=== PATIENT | male | born 1940 | race Caucasian/White ===

== ENCOUNTER → 2016-07-03 | Outpatient (CLI) | payer BC, OTHER ==
[~2016-07-03] MED LIST: ALL100 PO; AMLO-110 PO; ASPI81TA28 PO; ATEN-175 PO; FLM4 PO; LISI-725 PO; MAGN1TAB19 PO; PRLSR20 PO; PSYL0.524; SIMV20TA2 PO; VLTG EXT
--- NOTE | 2016-07-03 15:40 | DIAGNOSTIC IMAGING REPORT ---
ABDOMEN 2VIEW W/PA CHEST RTN CLINICAL HISTORY: Abdominal pain. Constipation. COMPARISON STUDY: 04/11/2016 FINDINGS: The erect chest reveals mild hyperinflation. There is no focal pulmonary consolidation. There is no free air.] Supine views the abdomen reveal surgical clips within the right upper quadrant consistent with a prior cholecystectomy. There are no abnormally dilated loops of large or small bowel. There are no transition zones to indicate bowel obstruction. There are degenerative changes present within the hips left greater than right as well as within the lumbar spine. IMPRESSION: No evidence of bowel obstruction. No evidence of free air. Electronically signed by: Gera Hebert M.D. 07/03/2016 3:39 PM
== END | disposition home or self-care (01) ==
LOC: C.RADPV 15:19
PROVIDERS: ATTEND Family Medicine
DX: R10.9 Unspecified abdominal pain (principal); K59.00 Constipation, unspecified

== ENCOUNTER → 2016-07-06 | Outpatient (CLI) | payer BC, OTHER ==
[~2016-07-06] MED LIST changes: -PSYL0.524; -VLTG EXT
--- NOTE | 2016-07-06 10:13 | DIAGNOSTIC IMAGING REPORT ---
LEFT SHOULDER MIN 2 VIEWS ROUTINE CLINICAL HISTORY: Left shoulder pain. COMPARISON: None. DISCUSSION: There are mild to moderate osteoarthritic changes present. Degenerative changes are also present within the AC joint. There are no fractures. There are no erosive changes. There are no particular calcifications. IMPRESSION: Osteoarthritic changes with humeral and glenoid spurring. No acute fractures. Electronically signed by: Gera Hebert M.D. 07/06/2016 10:11 AM Dictated Date/Time: 07/06/2016 10:10 AM
== END | disposition home or self-care (01) ==
LOC: C.RADPV 09:56
PROVIDERS: ATTEND Family Medicine
DX: S46.912A Strain of unspecified muscle, fascia and tendon at shoulder and upper arm level, left arm, initial encounter (principal); X58.XXXA Exposure to other specified factors, initial encounter

== ENCOUNTER → 2016-08-08 | Outpatient (CLI) | payer BC, OTHER ==
[2016-08-08 13:25] LABS: ALT/SGPT 44 U/L (12-78); AST/SGOT 29 U/L (15-37); BLOOD UREA NITROGEN 12 mg/dl (7-18); BUN/CREATININE RATIO 10.9 (10-20); CALCIUM 8.6 mg/dl (8.5-10.1); CARBON DIOXIDE 24 mmol/L (21-32); CHLORIDE 107 mmol/L (98-107); GLUCOSE 95 mg/dl (70-99); MAGNESIUM 1.8 mg/dl (1.8-2.4); POTASSIUM 3.9 mmol/L (3.5-5.1); SODIUM 143 mmol/L (136-145)
[2016-08-08 13:30] LABS: ESTIMATED AVERAGE GLUCOSE 100 mg/dl; HA1C FLAG Normal (Normal)
[2016-08-08 13:31] LABS: ALB/GLOB RATIO 1.3 (0.9-2); ALKALINE PHOSPHATASE 125 U/L (45-117); CHOLESTEROL 93 mg/dl (0-200); HDL CHOLESTEROL 31 mg/dl; LDL CHOLESTEROL CALCULATED 31 mg/dl; TRIGLYCERIDES 155 mg/dl (0-150); VERY LOW DENSITY LIPOPROT CALC 31 mg/dl
== END | disposition home or self-care (01) ==
LOC: C.LABPVFM 07:22
PROVIDERS: ATTEND Family Medicine
DX: E78.5 Hyperlipidemia, unspecified (principal); I10 Essential (primary) hypertension; M10.9 Gout, unspecified; E83.42 Hypomagnesemia; R73.9 Hyperglycemia, unspecified; M79.606 Pain in leg, unspecified; E53.8 Deficiency of other specified B group vitamins

== ENCOUNTER → 2017-02-07 | Outpatient (CLI) | payer BC, OTHER ==
[2017-02-07 13:17] LABS: ALT/SGPT 41 U/L (12-78); AST/SGOT 30 U/L (15-37); BLOOD UREA NITROGEN 14 mg/dl (7-18); BUN/CREATININE RATIO 11.9 (10-20); CALCIUM 8.6 mg/dl (8.5-10.1); CARBON DIOXIDE 27 mmol/L (21-32); CHLORIDE 106 mmol/L (98-107); CHOLESTEROL 119 mg/dl (0-200); GLUCOSE 110 mg/dl (70-99); MAGNESIUM 2.1 mg/dl (1.8-2.4); POTASSIUM 4.2 mmol/L (3.5-5.1); SODIUM 140 mmol/L (136-145); TRIGLYCERIDES 198 mg/dl (0-150); VERY LOW DENSITY LIPOPROT CALC 40 mg/dl
[2017-02-07 13:21] LABS: ALB/GLOB RATIO 1.1 (0.9-2); ALKALINE PHOSPHATASE 151 U/L (45-117); CHOLESTEROL/HDL RATIO 3.8; HDL CHOLESTEROL 31 mg/dl; LDL CHOLESTEROL CALCULATED 48 mg/dl
== END | disposition home or self-care (01) ==
LOC: C.LABPVFM 07:15
PROVIDERS: ATTEND Family Medicine
DX: Z12.5 Encounter for screening for malignant neoplasm of prostate (principal); E78.5 Hyperlipidemia, unspecified; I10 Essential (primary) hypertension; E83.42 Hypomagnesemia

== ENCOUNTER 2017-04-29 13:22 | Observation (INO) | payer BC, OTHER ==
[~2017-04-29] VITALS: Ht 175.3 cm; Wt 96.3 kg
[~2017-04-29 13:22] MED LIST changes: -AMLO-110 PO; -ATEN-175 PO; -LISI-725 PO; -SIMV20TA2 PO
[2017-04-29] MEDS ORDERED: PSYL0.524 (14:23)
[2017-04-29] MEDS ORDERED: NITROGLYCERIN OINT 2% 1GM PACKET EXT ONE (14:30)
[2017-04-29] MEDS ORDERED: LISI-725 PO (14:49)
[2017-04-29] MEDS ORDERED: AMLO-110 PO (14:49)
[2017-04-29 15:31] LABS: MEAN CELL VOLUME 82.6 fL (80-100); MEAN CORPUSCULAR HEMOGLOBIN 29.1 pg (25-34); MEAN CORPUSCULAR HGB CONC 35.3 g/dl (32-36); MEAN PLATELET VOLUME 9.6 fL (7.4-10.4); PLATELET COUNT 144 K/uL (130-400); RED BLOOD COUNT 4.84 M/uL (4.7-6.1); WHITE BLOOD COUNT 6.78 K/uL (4.8-10.8)
[2017-04-29 15:46] LABS: CHLORIDE 108 mmol/L (98-107); POTASSIUM 3.7 mmol/L (3.5-5.1); SODIUM 143 mmol/L (136-145)
--- NOTE | 2017-04-29 15:48 | DIAGNOSTIC IMAGING REPORT ---
CT SCAN OF THE BRAIN WITHOUT IV CONTRAST CLINICAL HISTORY: Change in mental status. Speech difficulty. COMPARISON STUDY: CT angiogram of the brain dated 04/15/2016. CT of the brain dated 04/14/2016. TECHNIQUE: Unenhanced axial CT scan of the brain is performed from the vertex to the skull base. CT DOSE: 537.48 mGy.cm FINDINGS: Brain parenchyma: There are age-related involutional changes noting mild subcortical and periventricular microangiopathic change. A small chronic lacunar infarct is noted in the right caudate head. There is no hemorrhage, mass effect, or evidence of acute territorial ischemia by CT criteria. Galeana-white matter is preserved. No extra-axial fluid collection is seen. Ventricles, sulci, cisterns: Prominent secondary to involutional change. Intracranial vasculature: There is atherosclerotic calcification of the cavernous carotid arteries. Calvarium: Unremarkable. Soft tissues: A large lipoma is seen within the left posterior upper neck. Sinuses and mastoids: The visualized paranasal sinuses are clear. The mastoid air cells are well pneumatized. Orbits: The bony orbits are grossly intact. There are bilateral ocular lens implants. IMPRESSION: There is no hemorrhage, mass effect, or evidence of acute territorial ischemia by CT criteria. Electronically signed by: Billy Flanagan M.D. 04/29/2017 3:47 PM Dictated Date/Time: 04/29/2017 3:45 PM
[2017-04-29 15:52] LABS: BLOOD UREA NITROGEN 12 mg/dl (7-18); BUN/CREATININE RATIO 12.1 (10-20); CALCIUM 8.6 mg/dl (8.5-10.1); CARBON DIOXIDE 25 mmol/L (21-32); GLUCOSE 97 mg/dl (70-99)
[2017-04-29 15:58] LABS: ALKALINE PHOSPHATASE 139 U/L (45-117); ALT/SGPT 48 U/L (12-78); AST/SGOT 30 U/L (15-37)
--- NOTE | 2017-04-29 16:09 | DIAGNOSTIC IMAGING REPORT ---
CHEST 2 VIEWS ROUTINE CLINICAL HISTORY: pleuritic chest pain. rule out infection dyspnea COMPARISON STUDY: 07/03/2016 FINDINGS: Lungs are considered clear. No evidence of cardiac collection. Diaphragms smooth. IMPRESSION: No acute process. The above report was generated using voice recognition software. It may contain grammatical, syntax or spelling errors. Electronically signed by: Vic Carpio M.D. 04/29/2017 4:08 PM Dictated Date/Time: 04/29/2017 4:07 PM
--- NOTE | 2017-04-29 16:59 | EMERGENCY ROOM VISIT NOTE ---
History First contact with patient: 13:45 Chief Complaint: CHEST PAIN Stated Complaint: CHEST PAIN Nursing Triage Summary: triage note: pt reports left sided chest pain since this am. pt denies any cardiac hx. History of Present Illness The patient is a 76 year old male who presents to the Emergency Room with complaints of left sided chest pain beginning at 7:00 this morning while he was lying in bed. He states the pain is a dull pressure sensation, 3-4/10 in severity. He denies radiation, SOB, n/v, diaphoresis. The pain is pleuritic in nature, and is relieved by lying flat. He has no previous cardiac history, and his last stress test was approximately 7 years ago, and was normal. He also notes that over the last 3-4 weeks, he has had 1-2 episodes of "buzzing" in the left side of his chest that last approximately 1-2 seconds and are relieved by taking a few deep breaths. These are unrelated to exercise. He is generally active, and is able to mow the lawn and do yard-work without any SOB or chest pain. He sleeps in a recliner due to back pain, but reports he has never woken up with SOB, and is not SOB when lying flat. He denies any leg swelling, cough, recent surgery or immobilization. Of note, he has a history of esophageal cancer, which was removed. He did not require chemo or radiation and is being followed up yearly for recurrence. He also has a history of bleeding ulcers and reflux, but states this pain feels different to that. Review of Systems See HPI for pertinent positives & negatives. A total of 10 systems reviewed and were otherwise negative. Past Medical/Surgical History Medical Problems: (1) Colectomy (2) Colonoscopy (3) Diverticulitis (4) EGD (5) Expressive aphasia (6) Gastroesophageal reflux disease (7) HTN (hypertension) (8) PERSONAL HISTORY OF PEPTIC ULCER DISEASE Family History Cardiovascular disease Diabetes mellitus Heart disease Social History Smoking Status: Never Smoker Alcohol Use: none Drug Use: none Marital Status: Housing Status: lives with significant other Occupation Status: retired Current/Historical Medications Scheduled Allopurinol (Allopurinol), 100 MG PO DAILY Amlodipine (Norvasc), 5 MG PO PM Aspirin (Aspirin Ec), 81 MG PO QAM Atenolol (Tenormin), 100 MG PO BID Lisinopril (Zestril), 20 MG PO QAM Magnesium Oxide (Mg Supplement (Magnesium Oxide), 400 MG PO BID Omeprazole (Prilosec), 20 MG PO BID Simvastatin (Zocor), 20 MG PO QPM Miscellaneous Medications Psyllium (Metamucil) Physical Exam Vital Signs Date Time Temp Pulse Resp B/P (MAP) Pulse Ox O2 Delivery O2 Flow Rate FiO2 04/29/17 17:55 70 04/29/17 17:07 66 18 128/58 93 Room Air 04/29/17 15:29 67 18 146/75 93 Room Air 04/29/17 15:05 169/76 04/29/17 15:02 144/120 04/29/17 14:52 69 13 95 04/29/17 14:22 66 12 96 04/29/17 13:55 73 04/29/17 13:52 62 14 96 04/29/17 13:50 97 Room Air 04/29/17 13:47 168/75 04/29/17 13:31 36.8 69 20 189/87 97 Room Air Physical Exam HEENT: Head - normocephalic and atraumatic. Pupils are equal, round, and reactive to light. Extraocular eye muscles are intact and sclera are anicteric. Ears - bilaterally patent canals with noninjected tympanic membranes and no evidence of hemotympanum. Nose - moist nasal mucosa without discharge. Mouth - moist buccal mucosa. Oropharynx is nonerythematous and there is no tonsillar exudate or edema noted. Neck: Supple; no JVD, nuchal rigidity, cervical lymphadenopathy, or auscultated bruits. Heart: Regular rate and rhythm. There is a normal S1 and S2 with no murmurs, clicks, or gallops appreciated. Lungs: Clear to auscultation bilaterally with no wheezes, rales, or rhonchi. Abdomen: Soft, diffusely tender in all four quadrants, nondistended, with good bowel sounds. There are no palpable pulsatile masses or hepatosplenomegaly. There is no guarding, rigidity, or rebound noted. Extremities: No evidence of cyanosis, clubbing, or edema. There are easily palpable peripheral pulses. Neuro:The patient is awake and alert, oriented to day, time, and place. Muscle strength is 5/5 in all 4 extremities. The patient has equal last putter away strength and equal pedal push and pull. There are no cerebellar signs. Medical Decision & Procedures ER Provider Diagnostic Interpretation: CHEST 2 VIEWS ROUTINE CLINICAL HISTORY: pleuritic chest pain. rule out infection dyspnea COMPARISON STUDY: 07/03/2016 FINDINGS: Lungs are considered clear. No evidence of cardiac collection. Diaphragms smooth. IMPRESSION: No acute process. CT SCAN OF THE BRAIN WITHOUT IV CONTRAST CLINICAL HISTORY: Change in mental status. Speech difficulty. COMPARISON STUDY: CT angiogram of the brain dated 04/15/2016. CT of the brain dated 04/14/2016. TECHNIQUE: Unenhanced axial CT scan of the brain is performed from the vertex to the skull base. CT DOSE: 537.48 mGy.cm FINDINGS: Brain parenchyma: There are age-related involutional changes noting mild subcortical and periventricular microangiopathic change. A small chronic lacunar infarct is noted in the right caudate head. There is no hemorrhage, mass effect, or evidence of acute territorial ischemia by CT criteria. Galeana-white matter is preserved. No extra-axial fluid collection is seen. Ventricles, sulci, cisterns: Prominent secondary to involutional change. Intracranial vasculature: There is atherosclerotic calcification of the cavernous carotid arteries. Calvarium: Unremarkable. Soft tissues: A large lipoma is seen within the left posterior upper neck. Sinuses and mastoids: The visualized paranasal sinuses are clear. The mastoid air cells are well pneumatized. Orbits: The bony orbits are grossly intact. There are bilateral ocular lens implants. IMPRESSION: There is no hemorrhage, mass effect, or evidence of acute territorial ischemia by CT criteria. Laboratory Results 04/29/17 15:00 04/29/17 15:00 Test 04/29/17 15:00 04/29/17 15:28 04/29/17 17:50 Red Blood Count 4.84 M/uL (4.7-6.1) Mean Corpuscular Volume 82.6 fL (80-100) Mean Corpuscular Hemoglobin 29.1 pg (25-34) Mean Corpuscular Hemoglobin Concent 35.3 g/dl (32-36) RDW Standard Deviation 41.5 fL (36.4-46.3) RDW Coefficient of Variation 13.8 % (11.5-14.5) Mean Platelet Volume 9.6 fL (7.4-10.4) Anion Gap 10.0 mmol/L (3-11) Est Creatinine Clear Calc Drug Dose 71.0 ml/min Estimated GFR () 83.2 Estimated GFR (Non- 71.8 BUN/Creatinine Ratio 12.1 (10-20) Calcium Level 8.6 mg/dl (8.5-10.1) Total Bilirubin 0.5 mg/dl (0.2-1) Direct Bilirubin 0.1 mg/dl (0-0.2) Aspartate Amino Transf (AST/SGOT) 30 U/L (15-37) Alanine Aminotransferase (ALT/SGPT) 48 U/L (12-78) Alkaline Phosphatase 139 U/L (45-117) Troponin I < 0.015 ng/ml (0-0.045) Total Protein 7.2 gm/dl (6.4-8.2) Albumin 4.0 gm/dl (3.4-5.0) Lipase 95 U/L (73-393) Bedside Glucose 94 mg/dl (70-99) Medications Administered Medications (Trade) Dose Ordered Sig/Michael Route Start Time Stop Time Status Last Admin Dose Admin Nitroglycerin (Nitroglycerin 2% Oint) 1 inch NOW ONCE EXT 04/29/17 14:30 04/29/17 14:31 DC 04/29/17 14:51 1 INCH ED Course 13:50: The patient was seen and evaluated in room C8 14:10: The case was discussed with Dr. Kaiser 14:30: Nitro paste applied to patient's chest 15:20: The patient's states that the patient had a 1-2 episode of generalized shaking and being unable to get any words out. BSG checked and was 94. 16:55: Re-assessed patient, who states his chest pain has resolved. 17:05: Discussed the case with Carolann Kang/Dr. Benjamin - [facility] hospitalist who will evaluate him for admission Medical Decision The patient is a 76 year old male who presents to the Emergency Room with complaints of left sided chest pain beginning at 7:00 this morning. Differentials at this time include STEMI, unstable angina, pneumonia, PE, costochondritis, viral illness. Given his ST wave changes in V4-V6, further cardiac workup is warranted. With regards to his 1-2 minute episode of shaking - head CT was negative and glucose was 94. Follow-up and monitoring needed to determine etiology. Impression Primary Impression: Left sided chest pain Departure Information Dispostion Being Evaluated By Hospitalist Referrals Cyril John M.D. (PCP) Patient Instructions My [facility] Resident Tracking Resident Involvement: Resident Care Provided Care Provided: Adult ED
--- NOTE | 2017-04-29 17:54 | EMERGENCY ROOM VISIT NOTE ---
History Report prepared by Juno: Carlitos Romero Under the Supervision of: Dr. Mick Kaiser M.D. First contact with patient: 13:40 Chief Complaint: CHEST PAIN Stated Complaint: CHEST PAIN Nursing Triage Summary: triage note: pt reports left sided chest pain since this am. pt denies any cardiac hx. History of Present Illness The patient is a 76 year old male with a history of hypertension and hyperlipidemia, reflux, and bleeding ulcers who presents to the Emergency Room with complaints of persistent left-sided chest pain that started around 7 hours ago. He says that he was resting in bed when the pain came on, and currently rates the pain as a 2 out of 10 in severity. He adds that the pain has been dull , and describes it as a pressure as well. The patient states that the pain is worsened with taking a deep breath and relieved with laying down. He denies any radiation or pain, shortness of breath, cough, fevers, nausea, vomiting, sweats , or leg swelling. He also denies any recent immobilization. He notes no personal history of cardiac issues, and says that he is active and has never had chest pain with exertion. The patient adds that for the past month, he has experienced 3 or 4 episodes that last about 1 to 2 seconds, where he gets a "buzzing" in his chest. The patient says that his current pain is different than his reflux and bleeding ulcers. He adds that he has a history of esophageal cancer, which was successfully treated. He says that his last stress test was 7 years ago and it was normal. He is an ex-smoker, and does not drink alcohol. The patient denies using any Viagra-like medications in the past 48 hours. Source of History: patient Onset: 7 hours ago Position: chest (left) Symptom Intensity: 2/10 in severity Quality: pressure, dull Modifying Factors (Worsening): breathing Modifying Factors (Relieving): other (laying down) Associated Symptoms: No fevers, No cough, No SOB, No nausea, No vomiting Note: Associated symptoms: Episodes of buzzing in chest past month. Denies radiation of pain. Review of Systems See HPI for pertinent positives & negatives. A total of 10 systems reviewed and were otherwise negative. Past Medical & Surgical Medical Problems: (1) Colectomy (2) Colonoscopy (3) Diverticulitis (4) EGD (5) Expressive aphasia (6) Gastroesophageal reflux disease (7) HTN (hypertension) (8) PERSONAL HISTORY OF PEPTIC ULCER DISEASE Family History Cardiovascular disease Diabetes mellitus Heart disease Social History Smoking Status: Former Smoker Alcohol Use: none Drug Use: none Marital Status: Housing Status: lives with significant other Occupation Status: retired Current/Historical Medications Scheduled Allopurinol (Allopurinol), 100 MG PO DAILY Amlodipine (Norvasc), 5 MG PO PM Aspirin (Aspirin Ec), 81 MG PO QAM Atenolol (Tenormin), 100 MG PO BID Lisinopril (Zestril), 20 MG PO QAM Magnesium Oxide (Mg Supplement (Magnesium Oxide), 400 MG PO BID Omeprazole (Prilosec), 20 MG PO BID Simvastatin (Zocor), 20 MG PO QPM Miscellaneous Medications Psyllium (Metamucil) Allergies Coded Allergies: Codeine (Verified Adverse Reaction, Unknown, SICK IN STOMACH, 04/29/17) Morphine and Related (Verified Adverse Reaction, Unknown, nausea, 04/29/17 ) Physical Exam Vital Signs Date Time Temp Pulse Resp B/P (MAP) Pulse Ox O2 Delivery O2 Flow Rate FiO2 04/29/17 17:07 66 18 128/58 93 Room Air 04/29/17 15:29 67 18 146/75 93 Room Air 04/29/17 15:05 169/76 04/29/17 15:02 144/120 04/29/17 14:52 69 13 95 04/29/17 14:22 66 12 96 04/29/17 13:55 73 04/29/17 13:52 62 14 96 04/29/17 13:50 97 Room Air 04/29/17 13:47 168/75 04/29/17 13:31 36.8 69 20 189/87 97 Room Air Physical Exam Constitutional: Vital signs reviewed. Eyes: Pupils are equal round reactive to light. Conjunctiva are noninjected. ENT: Pharynx is clear without erythema or exudate. Mucous membranes are moist. Neck supple without meningeal signs. Respiratory: Clear to auscultation bilaterally. Breath sounds are equal bilaterally. Cardiovascular: Regular rate and rhythm. No rubs or gallops. GI: Soft, nondistended. Mild epigastric tenderness. Bowel sounds are present. Musculoskeletal: No peripheral edema. No lower extremity tenderness. Integumentary: No cyanosis. Neurological: The patient is awake and alert. No focal deficits. Psychiatric: Anxious appearing Medical Decision & Procedures ER Provider Diagnostic Interpretation: Radiology results as stated below per my review and the radiologist's interpretation: CHEST 2 VIEWS ROUTINE CLINICAL HISTORY: pleuritic chest pain. rule out infection dyspnea COMPARISON STUDY: 07/03/2016 FINDINGS: Lungs are considered clear. No evidence of cardiac collection. Diaphragms smooth. IMPRESSION: No acute process. The above report was generated using voice recognition software. It may contain grammatical, syntax or spelling errors. Electronically signed by: Vic Carpio M.D. 04/29/2017 4:08 PM Dictated Date/Time: 04/29/2017 4:[address] SCAN OF THE BRAIN WITHOUT IV CONTRAST CLINICAL HISTORY: Change in mental status. Speech difficulty. COMPARISON STUDY: CT angiogram of the brain dated 04/15/2016. CT of the brain dated 04/14/2016. TECHNIQUE: Unenhanced axial CT scan of the brain is performed from the vertex to the skull base. CT DOSE: 537.48 mGy.cm FINDINGS: Brain parenchyma: There are age-related involutional changes noting mild subcortical and periventricular microangiopathic change. A small chronic lacunar infarct is noted in the right caudate head. There is no hemorrhage, mass effect, or evidence of acute territorial ischemia by CT criteria. Galeana-white matter is preserved. No extra-axial fluid collection is seen. Ventricles, sulci, cisterns: Prominent secondary to involutional change. Intracranial vasculature: There is atherosclerotic calcification of the cavernous carotid arteries. Calvarium: Unremarkable. Soft tissues: A large lipoma is seen within the left posterior upper neck. Sinuses and mastoids: The visualized paranasal sinuses are clear. The mastoid air cells are well pneumatized. Orbits: The bony orbits are grossly intact. There are bilateral ocular lens implants. IMPRESSION: There is no hemorrhage, mass effect, or evidence of acute territorial ischemia by CT criteria. Electronically signed by: Billy Flanagan M.D. 04/29/2017 3:47 PM Dictated Date/Time: 04/29/2017 3:45 PM Laboratory Results 04/29/17 15:00 04/29/17 15:00 Test 04/29/17 15:00 04/29/17 15:28 Red Blood Count 4.84 M/uL (4.7-6.1) Mean Corpuscular Volume 82.6 fL (80-100) Mean Corpuscular Hemoglobin 29.1 pg (25-34) Mean Corpuscular Hemoglobin Concent 35.3 g/dl (32-36) RDW Standard Deviation 41.5 fL (36.4-46.3) RDW Coefficient of Variation 13.8 % (11.5-14.5) Mean Platelet Volume 9.6 fL (7.4-10.4) Anion Gap 10.0 mmol/L (3-11) Est Creatinine Clear Calc Drug Dose 71.0 ml/min Estimated GFR () 83.2 Estimated GFR (Non- 71.8 BUN/Creatinine Ratio 12.1 (10-20) Calcium Level 8.6 mg/dl (8.5-10.1) Total Bilirubin 0.5 mg/dl (0.2-1) Direct Bilirubin 0.1 mg/dl (0-0.2) Aspartate Amino Transf (AST/SGOT) 30 U/L (15-37) Alanine Aminotransferase (ALT/SGPT) 48 U/L (12-78) Alkaline Phosphatase 139 U/L (45-117) Troponin I < 0.015 ng/ml (0-0.045) Total Protein 7.2 gm/dl (6.4-8.2) Albumin 4.0 gm/dl (3.4-5.0) Lipase 95 U/L (73-393) Bedside Glucose 94 mg/dl (70-99) Laboratory results as reviewed by me. Medications Administered Medications (Trade) Dose Ordered Sig/[facility] Route Start Time Stop Time Status Last Admin Dose Admin Nitroglycerin (Nitroglycerin 2% Oint) 1 inch NOW ONCE EXT 04/29/17 14:30 04/29/17 14:31 DC 04/29/17 14:51 1 INCH ECG Indication: chest pain Rate (beats per minute): 69 Rhythm: sinus rhythm Findings: PVC, other (nonspecific ST changes in V4-V6) Change: Repeat ECG showed a sinus rhythm at 68 bpm, persistent nonspecific ST changes in V4-V6, no ectopy. ED Course 1355: The patient was evaluated in room C8 by the resident, Dr. Allison. A complete history and physical exam was performed. 1416: The patient was evaluated in room C8. A complete history and physical exam was performed. 1430: Ordered Nitroglycerin 2% Oint 1 inch EXT. 1520: I reevaluated the patient and he had an episode where he could not talk for about a minute and was shaking. His vital signs were normal, and he is anxious and hypertensive. Repeat ECG showed a sinus rhythm at 68 bpm, persistent nonspecific ST changes in V4-V6, no ectopy. We will obtain a bedside glucose and CT of his head. 1550: I reevaluated the patient and his blood sugar was 94. He was taken to x- ray. 1650: The patient's chest pain has improved. The patient verbally expressed understanding and agreement of the treatment plan. The patient will be evaluated for further treatment. 1710: I spoke with Dr. Anaya/Carolann Knag - [facility] [place] visual [place]. Discussed the patient and his results. The patient will be further evaluated by Dr. Anaya/ Carolann Kang. Medical Decision This is a 76-year-old male who presents with chest discomfort. Differential diagnosis includes unstable angina, RI, pleurisy, GERD, esophagitis. I did perform a limited focused review of portions of the patient's old chart on the electronic medical record. The patient has had no recent pertinent visits to this hospital. I did evaluate the patient as noted above. Patient is presenting with chest discomfort which she describes as a pressure. Did treat him with nitroglycerin paste. IV access was established. The patient was placed on a continuous cardiac/vascular sonographer. I did order and personally review the patient's 12-lead EKG and chest x-ray as described above. As have some slight ST depressions in leads V4 to V6. I did order and review the patient's blood work as noted in the electronic medical record. Troponin is negative. While in the emergency department the patient developed an episode lasting a minute where he had trouble speaking and was trembling. It is unclear whether this was an anxiety attack or a neurologic problem. A bedside blood sugar was 94. Repeat 12-lead EKG was obtained which did not show any significant change. I did order a CT of the head. I did review the images myself as well as the radiology report as described above. This was unremarkable. His symptoms completely resolved. He had improvement of his chest pain as well with the nitroglycerin. He will be hospitalized for further care and evaluation. The case was discussed with the hospitalist and bottle caser. Resident Physician Supervision Note: I did evaluate and examine this patient myself. I did guide management for the patient. I agree with the resident's (Dr. Allison) assessment as discussed. Please see the resident's dictation for further details. Medication Reconcilliation Current Medication List: was personally reviewed by me Blood Pressure Screening Patient's blood pressure: Elevated blood pressure Consults Time Called: 1700 Consulting Physician: Dr. Anaya/Carolnan VASQUEZ audio visual coordinator Returned Call: [address] Anaya/Carolann VASQUEZ audio visual coordinator. Discussed the patient and his results. The patient will be further evaluated by Dr. Anaya/ Carolann Kang. Impression Primary Impression: Left sided chest pain Additional Impression: Difficulty with speech Scribe Attestation The scribe's documentation has been prepared under my direct and personally reviewed by me in its entirety. I confirm that the note above accurately reflects all work, treatment, procedures, and medical decision making performed by me. Departure Information Dispostion Being Evaluated By Hospitalist Referrals Cyril John M.D. (PCP) Patient Instructions My [facility] Problem Qualifiers
[2017-04-29] MEDS ORDERED: MAGNESIUM HYDROXIDE SUSP 30 ML UDC PO PRN (18:00)
[2017-04-29] MEDS ORDERED: ONDANSETRON INJ 2 MG/ML 2 ML VIAL IV PRN (18:00)
[2017-04-29] MEDS ORDERED: ALUMINUM/MAGNESIUM/SIMETH (MAALOX MAX) 30 ML UDC PO PRN (18:00)
[2017-04-29] MEDS ORDERED: POLYETHYLENE (MIRALAX) 17 GM PACK PO PRN (18:00)
[2017-04-29] MEDS ORDERED: ACETAMINOPHEN 325 MG TAB PO PRN (18:00)
[2017-04-29] MEDS ORDERED: PHARMACIST DISCHARGE MED REC CONSULT PRN ×2 (18:00→21:45)
--- NOTE | 2017-04-29 18:26 | History and Physical ---
History & Physical Date & Time of Service: Apr 29, 2017 at 18:06 Chief Complaint: Chest Pain Primary Care Physician: Cyril John M.D. History of Present Illness Source: patient, spouse, clinic records, hospital records This is a 76 y/o male with a history of HTN, HLD, diastolic dysfunction, gout, Marrufo's esophagus, GERD, and diverticulitis s/p sigmoidectomy who presented to the ED on 04/29 with left sided chest pain. The patient developed a moderate left sided chest pain while sitting watching TV this morning. He states that the pain was a 4/10 initially and was dull in character. The pain slowly dwindled in intensity but persisted for several hours, prompting him to come to the ED. He denies any associated shortness of breath, nausea, vomiting , numbness or tingling. The patient currently complains of a 1/10 chest pain. He now states that he is developing numbness in the first 3 digits of his right hand. While in the ED, the patient had an episode of shaking and expressive aphasia that lasted 1-2 minutes. The patient's who witnessed it states that she first noticed his hand shaking, then he was shaking all over and unable to speak. The patient has never experienced anything like this before, and he states that it occurred shortly after receiving the nitro paste. The patient denies fevers, chills, sweats, palpitations, claudication, cough, wheezing, shortness of breath, nausea, vomiting, abdominal pain, dysuria, hematuria, urinary retention, paralysis, weakness. Past Medical/Surgical History Medical Problems: (1) Colectomy Status: Resolved (2) Colonoscopy Status: Resolved (3) Diverticulitis Status: Chronic (4) EGD Status: Resolved (5) Gastroesophageal reflux disease Status: Chronic (6) HTN (hypertension) Status: Chronic (7) PERSONAL HISTORY OF PEPTIC ULCER DISEASE Status: Chronic HLD Marrufo's esophagus Gout Diastolic dysfunction Family History Cardiovascular disease Diabetes mellitus Heart disease Social History Smoking Status: Former Smoker (quit 1999) Smokeless Tobacco Use: No Alcohol Use: none Drug Use: none Marital Status: Housing status: lives with significant other Occupational Status: retired Multi-Drug Resistant Organisms History of MDRO: No Allergies Coded Allergies: Codeine (Verified Adverse Reaction, Unknown, SICK IN STOMACH, 04/29/17) Morphine and Related (Verified Adverse Reaction, Unknown, nausea, 04/29/17 ) Home Medications Scheduled Allopurinol (Allopurinol), 100 MG PO DAILY Amlodipine (Norvasc), 5 MG PO PM Aspirin (Aspirin Ec), 81 MG PO QAM Atenolol (Tenormin), 100 MG PO BID Lisinopril (Zestril), 20 MG PO QAM Magnesium Oxide (Mg Supplement (Magnesium Oxide), 400 MG PO BID Omeprazole (Prilosec), 20 MG PO BID Simvastatin (Zocor), 20 MG PO QPM Miscellaneous Medications Psyllium (Metamucil) Review of Systems Constitutional: No fever, No chills, No sweats, No weakness, No fatigue Eyes: No worsening of vision, No eye pain, No diplopia ENT: No hearing loss, No nasal symptoms, No trouble swallowing Respiratory: No cough, No wheezing, No shortness of breath Cardiovascular: + chest pain, No claudication, No palpitations Abdomen: No pain, No nausea, No vomiting Musculoskeletal: No joint pain, No muscle pain, No calf pain Genitourinary - Male: No hematuria, No dysuria, No urinary retention Neurologic: + numbness/tingling (first 3 digits right hand), + problem reported (brief episode expressive aphasia, shaking), No paralysis, No weakness Integumentary: No rash, No itch, No color change Physical Exam Vital Signs Date Time Temp Pulse Resp B/P (MAP) Pulse Ox O2 Delivery O2 Flow Rate FiO2 04/29/17 17:55 70 04/29/17 17:07 66 18 128/58 93 Room Air 04/29/17 15:29 67 18 146/75 93 Room Air 04/29/17 15:05 169/76 04/29/17 15:02 144/120 04/29/17 14:52 69 13 95 04/29/17 14:22 66 12 96 04/29/17 13:55 73 04/29/17 13:52 62 14 96 04/29/17 13:50 97 Room Air 04/29/17 13:47 168/75 04/29/17 13:31 36.8 69 20 189/87 97 Room Air General appearance: +Obese. Well-developed, well-nourished, no apparent distress Head: Normocephalic, atraumatic Eyes: +Lazy right eye, chronic. PERRL, EOMI ENT: Normal ENT inspection, hearing grossly normal, pharynx normal Neck: Supple, no JVD, trachea midline Respiratory/Chest: Lungs clear to auscultation, normal breath sounds, no respiratory distress Cardiovascular: Regular rate & rhythm, no gallop, no murmur Abdomen/GI: +RUQ and LUQ mildly TTP, more pronounced on right. Normal bowel sounds, soft Extremities/Musculoskeletal: Normal inspection, no calf tenderness, no pedal edema Neurological/Psych: Alert, normal mood/affect, oriented x 3, no motor/sensory deficits, no pronator drift, equal teletypesetter strengths Skin: Normal color, warm/dry, no rash Diagnostics Laboratory Results Results Past 24 Hours Test 04/29/17 15:00 04/29/17 15:28 04/29/17 17:50 Range/Units White Blood Count 6.78 4.8-10.8 K/uL Red Blood Count 4.84 4.7-6.1 M/uL Hemoglobin 14.1 14.0-18.0 g/dL Hematocrit 40.0 42-52 % Mean Corpuscular Volume 82.6 80-100 fL Mean Corpuscular Hemoglobin 29.1 25-34 pg Mean Corpuscular Hemoglobin Concent 35.3 32-36 g/dl RDW Standard Deviation 41.5 36.4-46.3 fL RDW Coefficient of Variation 13.8 11.5-14.5 % Platelet Count 144 130-400 K/uL Mean Platelet Volume 9.6 7.4-10.4 fL Sodium Level 143 136-145 mmol/L Potassium Level 3.7 3.5-5.1 mmol/L Chloride Level 108 98-107 mmol/L Carbon Dioxide Level 25 21-32 mmol/L Anion Gap 10.0 3-11 mmol/L Blood Urea Nitrogen 12 7-18 mg/dl Creatinine 1.00 0.60-1.40 mg/dl Est Creatinine Clear Calc Drug Dose 71.0 ml/min Estimated GFR () 83.2 Estimated GFR (Non- 71.8 BUN/Creatinine Ratio 12.1 10-20 Random Glucose 97 70-99 mg/dl Calcium Level 8.6 8.5-10.1 mg/dl Total Bilirubin 0.5 0.2-1 mg/dl Direct Bilirubin 0.1 0-0.2 mg/dl Aspartate Amino Transf (AST/SGOT) 30 15-37 U/L Alanine Aminotransferase (ALT/SGPT) 48 12-78 U/L Alkaline Phosphatase 139 45-117 U/L Troponin I < 0.015 0-0.045 ng/ml Total Protein 7.2 6.4-8.2 gm/dl Albumin 4.0 3.4-5.0 gm/dl Lipase 95 73-393 U/L Bedside Glucose 94 70-99 mg/dl Diagnostic Radiology Reviewed the following studies and agree with interpretation as follows: Patient Name: SINDY DIXON Unit Number: [id number] Dictated: 04/29/171606 Transcribed: 04/29/171606 MS Printed Date/Time: [~ rep prt dt]/[~ rep prt tm] [~ rep ct labl] - [~ rep ct ivnm] [facility] [place] [address] Dictated: 04/29/171606 Transcribed: 04/29/171606 MS Printed Date/Time: [~ rep prt dt]/[~ rep prt tm] [~ rep ct labl] - [~ rep ct ivnm] Patient: SINDY DIXON Address1: [address] [place] [address] Rec: [id number] Address2: Acct ID: [id number] [facility] Zip: [place] [address] Date: 1940 Sex: M Room/Bed: Ref Phy: Cyril John M.D. SC: TOM Att Phy: Report #: [id number] Sofy Phy: Cyril John M.D. Test: CXR Admit Phy: Print Project Manager: CHARLIE Interpreting Phy: Vic Carpio M.D. Diagnosis: CHEST PAIN Ordering Phy: Gilbert Allison M.D. Service Date: 04/29/17 Admit Date: 04/29/17 MNE: PWRSCRIBE CONF: DICTATED BY: Vic Carpio M.D.]] CC: Cyril John M.D. Choe, Thomas S., M.D. Tarmohamed Zenovia ., M.D. Endcc: [~ rep ct add3]] CHEST 2 VIEWS ROUTINE CLINICAL HISTORY: pleuritic chest pain. rule out infection dyspnea COMPARISON STUDY: 07/03/2016 FINDINGS: Lungs are considered clear. No evidence of cardiac collection. Diaphragms smooth. IMPRESSION: No acute process. The above report was generated using voice recognition software. It may contain grammatical, syntax or spelling errors. Electronically signed by: Vic Carpio M.D. 04/29/2017 4:08 PM Dictated Date/Time: 04/29/2017 4:07 PM The status of this report is Signed. Draft = Not yet reviewed or approved by Radiologist. Signed = Reviewed and approved by Radiologist. <AttendingPhy></AttendingPhy> <FamilyPhy>Cyril John M.D.</FamilyPhy > <PrimaryPhy>Cyril John M.D.</PrimaryPhy> <UnitNumber>[id number]</ UnitNumber> <VisitNumber>[id number]</VisitNumber> <PatientName>DESTINYSINDY< /PatientName> <DateOfBirth>1940</DateOfBirth> <Location>[facility]</Location> < ServiceDate>04/29/17</ServiceDate> <MNE>ESINDI</MNE> <OrderingPhy>Gilbert Allison M.D.</OrderingPhy> <OrderingPhyMNE>f rep ord dr house</OrderingPhyMNE> < DictatingPhyMNE>f rep dict dr house</DictatingPhyMNE> <CCListMNE>f rep ct mne</ CCListMNE> <AdmittingPhyMNE>f pt admit dr house</AdmittingPhyMNE> <AttendingPhyMNE >f pt attend dr house</AttendingPhyMNE> <ConsultingPhyMNE>f pt consult dr house</ConsultingPhyMNE> <FamilyPhyMNE>f pt fam dr house</FamilyPhyMNE> <OtherPhyMNE>f pt other dr house</OtherPhyMNE> < PrimaryPhyMNE>f pt prim care dr house</PrimaryPhyMNE> <ReferringPhyMNE>f pt referring dr house</ReferringPhyMNE> Patient Name: SINDY DIXON Unit Number: [id number] Dictated: 04/29/171544 Transcribed: 04/29/171544 EV Printed Date/Time: [~ rep prt dt]/[~ rep prt tm] [~ rep ct labl] - [~ rep ct ivnm] [facility] Radiology Department [place] [id number] Dictated: 04/29/171544 Transcribed: 04/29/171544 EV Printed Date/Time: [~ rep prt dt]/[~ rep prt tm] [~ rep ct labl] - [~ rep ct ivnm] Patient: SINDY DIXON Address1: [address] [place] [address] Med Rec: [id number] Address2: Acct ID: [id number] [facility] Zip: [place] [address] Date: 1940 Sex: M Room/Bed: Ref Phy: Cyril John M.D. SC: TOM Att Phy: Report #: [id number] Sofy Phy: Cyril John M.D. Test: HWO Admit Phy: Print Project Manager: LOLA Interpreting Phy: Billy Flanagan M.D. Diagnosis: CHEST PAIN Ordering Phy: Gilbert Allison M.D. Service Date: 04/29/17 Admit Date: 04/29/17 MNE: PWRSCRIBE CONF: DICTATED BY: Billy Flanagan M.D.]] CC: Cyril John M.D. Choe, Thomas S., M.D. Tarmohamed, Zenovia ., M.D. Endcc: [~ rep ct add3]] CT SCAN OF THE BRAIN WITHOUT IV CONTRAST CLINICAL HISTORY: Change in mental status. Speech difficulty. COMPARISON STUDY: CT angiogram of the brain dated 04/15/2016. CT of the brain dated 04/14/2016. TECHNIQUE: Unenhanced axial CT scan of the brain is performed from the vertex to the skull base. CT DOSE: 537.48 mGy.cm FINDINGS: Brain parenchyma: There are age-related involutional changes noting mild subcortical and periventricular microangiopathic change. A small chronic lacunar infarct is noted in the right caudate head. There is no hemorrhage, mass effect, or evidence of acute territorial ischemia by CT criteria. [place]-white matter is preserved. No extra-axial fluid collection is seen. Ventricles, sulci, cisterns: Prominent secondary to involutional change. Intracranial vasculature: There is atherosclerotic calcification of the cavernous carotid arteries. Calvarium: Unremarkable. Soft tissues: A large lipoma is seen within the left posterior upper neck. Sinuses and mastoids: The visualized paranasal sinuses are clear. The mastoid air cells are well pneumatized. Orbits: The bony orbits are grossly intact. There are bilateral ocular lens implants. IMPRESSION: There is no hemorrhage, mass effect, or evidence of acute territorial ischemia by CT criteria. Electronically signed by: Billy Flanagan M.D. 04/29/2017 3:47 PM Dictated Date/Time: 04/29/2017 3:45 PM The status of this report is Signed. Draft = Not yet reviewed or approved by Radiologist. Signed = Reviewed and approved by Radiologist. <AttendingPhy></AttendingPhy> <FamilyPhy>Cyril John M.D.</FamilyPhy > <PrimaryPhy>Cyril John M.D.</PrimaryPhy> <UnitNumber>[id number]</ UnitNumber> <VisitNumber>[id number]</VisitNumber> <PatientName>SINDY DIXON< /PatientName> <DateOfBirth>1940</DateOfBirth> <Location>[facility]</Location> < ServiceDate>04/29/17</ServiceDate> <MNE>ESINDI</MNE> <OrderingPhy>Gilbert Allison M.D.</OrderingPhy> <OrderingPhyMNE>f rep ord dr house</OrderingPhyMNE> < DictatingPhyMNE>f rep dict mne</DictatingPhyMNE> <CCListMNE>f rep ct mne</ CCListMNE> <AdmittingPhyMNE>f pt admit dr house</AdmittingPhyMNE> <AttendingPhyMNE >f pt attend dr house</AttendingPhyMNE> <ConsultingPhyMNE>f pt consult dr house</ConsultingPhyMNE> <FamilyPhyMNE>f pt fam dr house</FamilyPhyMNE> <OtherPhyMNE>f pt other dr house</OtherPhyMNE> < PrimaryPhyMNE>f pt prim care dr house</PrimaryPhyMNE> <ReferringPhyMNE>f pt referring dr house</ReferringPhyMNE> EKG Reviewed EKG and agree with interpretation as follows: 1st EKG--69 bpm, sinus rhythm, occasional PVCs 2nd EKG--68 bpm, sinus rhythm Impression Assessment and Plan 76 y/o male with a history of HTN, HLD, diastolic dysfunction, gout, Marrufo's esophagus, GERD, and diverticulitis s/p sigmoidectomy who presented to the ED on 04/29 with left sided chest pain. While in ED, pt had brief episode of shaking and expressive aphasia. CXR no acute disease. Head CT no acute disease. EKG no ischemic changes. Troponin negative, labs grossly unremarkable. Pt afebrile, VSS. Chest pain, ACS r/o -Admit to telemetry for observation -Trend cardiac enzymes q8h x 3. First troponin negative -EKG q am and prn chest pain Expressive aphasia--resolved, brief episode lasting 1-2 minutes -Stroke protocol -Pt refusing MRI -Carotid ultrasound ordered -Check fasting lipid panel tomorrow, HgbA1c now. Last A1c 5.1 in August 2016 -Continue ASA, beta tejas, ACEi, and statin -Echo ordered HTN--stable -Continue amlodipine 5 mg PO qd, atenolol 100 mg PO BID and lisinopril 20 mg PO qd HLD -Continue simvastatin 20 mg PO hs Gout--stable -Continue allopurinol 100 mg PO qd Marrufo's esophagus/GERD--stable -Convert Prilosec to Protonix 40 mg PO BID DVT prophylaxis -Enoxaparin 40 mg SC q24h -YASH hose and SCDs Code Status -Level I, FULL RESUSCITATION STATUS i personally examined pt and verified all blanton points w A Kang PAC chest pain - notes was doing heavy labor a day or two ago - wonders if that relates. pain absolutely nonstop ~1min expressive aphasia also notes L shoulder hurts - since a few months ago when strained it vitals noted nad breathing unlabored CP reproducible palpating L ribs and also L ribs more restricted ROM on respiration than R; L shoulder (+) pain on abduction and internal rotation but no blowout weakness chest pain - very likely MSK - has risks for cardiac - but with duration being absolutely nonstop over hours, if enzymes negative, cardiac effectively ruled out transient expressive aphasia - have to r/o TIA - consult neuro per stroke center requirements, echo/carotids, risk factor assessment L shoulder pain - examines c/w supraspinatus tendonitis - trial voltaren gel - if doesn't improve in reasonable amount of time, PCP to image/consider ortho/etc otherwise as above Level of Care Telemetry Resuscitation Status FULL RESUSCITATION VTE Prophylaxis VTE Risk Assessment Done? Y/N: Yes Risk Level: Moderate Given or contraindicated: Enoxaparin (Lovenox)SQ, T.E.D. Stockings, SCD's
[2017-04-29 18:28] LABS: ESTIMATED AVERAGE GLUCOSE 97 mg/dl; HA1C FLAG Normal (Normal)
[2017-04-29 19:01] VITALS: BP 139/74; PULSE 69; TEMP 36.4; O2SAT 98; Ht 175.3 cm; Wt 96.3 kg
[2017-04-29] MEDS ORDERED: AMLODIPINE BESYLATE 5 MG TAB PO SCH (21:00)
[2017-04-29] MEDS ORDERED: ENOXAPARIN 40 MG/0.4 ML SYR SC SCH (21:00)
[2017-04-29] MEDS ORDERED: SIMVASTATIN 20 MG TAB PO SCH (21:00)
[2017-04-29 21:07] LABS: PROTHROMBIN TIME (PATIENT) 10.7 SECONDS (9.0-12.0)
[2017-04-29] MEDS: MAGNESIUM OXIDE 400 MG TAB PO SCH (21:12)
[2017-04-29] MEDS: PANTOprazole SOD 40 MG TAB PO SCH (21:12)
[2017-04-29] MEDS ORDERED: IV FLUIDS COMPLETED PRN (21:15)
--- NOTE | 2017-04-29 22:16 | DIAGNOSTIC IMAGING REPORT ---
CAROTID ARTERY ULTRASOUND CLINICAL HISTORY: Stroke. COMPARISON STUDY: Carotid ultrasound October 17, 2013 and CTA of the neck April 15, 2016. TECHNIQUE: Real-time, grayscale, and color Doppler sonography of the carotid and vertebral arteries was performed. Images were viewed in the transverse and longitudinal planes. FINDINGS: There is mild atherosclerotic plaque. Velocity measurements are listed below. COMMON CAROTID PEAK SYSTOLIC VELOCITY (CM/S): RIGHT 78 LEFT 89 ICA PEAK SYSTOLIC VELOCITY (CM/S): RIGHT 60 LEFT 62 Systolic ratios between the internal to common carotid arteries were normal. Antegrade flow is seen in the vertebral arteries. The external carotid arteries are patent. Blood pressure in the right arm measured 136/68. Blood pressure in the left arm measured 119/57. IMPRESSION: No evidence of a hemodynamically significant stenosis. Electronically signed by: Miguel Latif M.D. 04/29/2017 10:15 PM Dictated Date/Time: 04/29/2017 10:13 PM
[2017-04-29] MEDS ORDERED: ATEN-175 PO (23:16)
[2017-04-29] MEDS ORDERED: SIMV20TA2 PO (23:16)
[2017-04-29 23:22] VITALS: BP 120/66; PULSE 63; TEMP 36.6; O2SAT 94
[2017-04-29] MEDS: DICLOFENAC SOD 1% GEL 100 GM TUBE EXT SCH (23:26)
[2017-04-29] MEDS ORDERED: NURSING VERBAL MED ORDER STA (23:42)
[2017-04-29] MEDS ORDERED: LORAZEPAM 0.5 MG TAB PO STA (23:48)
[2017-04-30 00:01] VITALS: O2SAT 94
[2017-04-30 03:38] VITALS: BP 135/67; PULSE 66; TEMP 36.3; O2SAT 95
[2017-04-30 04:00] VITALS: O2SAT 94
[2017-04-30 06:46] LABS: BASO % 0.4 %; BASO ABS # 0.03 K/uL (0-0.2); COMPLETE YES; EOS % 2.2 %; HEMATOCRIT 37.2 % (42-52); IG% 0.4 %; MEAN CORPUSCULAR HEMOGLOBIN 28.9 pg (25-34); MEAN CORPUSCULAR HGB CONC 34.4 g/dl (32-36); MEAN PLATELET VOLUME 9.9 fL (7.4-10.4); MONO % 8.3 %; NEUT % 63.7 %; PLATELET COUNT 140 K/uL (130-400); RED BLOOD COUNT 4.43 M/uL (4.7-6.1); WHITE BLOOD COUNT 7.19 K/uL (4.8-10.8)
[2017-04-30] MEDS: PSYLLIUM 58.6% PWD PACK S\\F PO SCH ×3 (07:10→16:45)
[2017-04-30 07:25] LABS: BLOOD UREA NITROGEN 17 mg/dl (7-18); BUN/CREATININE RATIO 14.6 (10-20); CARBON DIOXIDE 27 mmol/L (21-32); CHLORIDE 106 mmol/L (98-107); CREATININE 1.18 mg/dl (0.60-1.40); GLUCOSE 85 mg/dl (70-99); MAGNESIUM 1.9 mg/dl (1.8-2.4); POTASSIUM 3.5 mmol/L (3.5-5.1); SODIUM 140 mmol/L (136-145)
[2017-04-30 07:30] LABS: CHOLESTEROL 96 mg/dl (0-200); CHOLESTEROL/HDL RATIO 3.6; HDL CHOLESTEROL 27 mg/dl; LDL CHOLESTEROL CALCULATED 20 mg/dl; TRIGLYCERIDES 245 mg/dl (0-150); VERY LOW DENSITY LIPOPROT CALC 49 mg/dl
[2017-04-30 08:13] VITALS: BP 160/69; PULSE 74; TEMP 36.9; O2SAT 97
--- NOTE | 2017-04-30 08:52 | EEG Procedure Note ---
EEG Procedure Note Date of Service Apr 30, 2017. Start / End Times Start Time: 8:19 AM End Time: 8:39 AM Referring Physician Juanita Valdivia History This is a 76-year-old male with reported shaking of extremity and expressive aphasia lasting 1-2 minutes. EEG for further evaluation of possible seizure etiology. Home Medication List Scheduled Allopurinol (Allopurinol), 100 MG PO DAILY Amlodipine (Norvasc), 5 MG PO PM Aspirin (Aspirin Ec), 81 MG PO QAM Atenolol (Tenormin), 100 MG PO BID Lisinopril (Zestril), 20 MG PO QAM Magnesium Oxide (Mg Supplement (Magnesium Oxide), 400 MG PO BID Omeprazole (Prilosec), 20 MG PO BID Simvastatin (Zocor), 20 MG PO QPM Miscellaneous Medications Psyllium (Metamucil) Inpatient Medication List Current Inpatient Medications Medications (Trade) Dose Ordered Sig/Michael Route Start Time Stop Time Status Last Admin Dose Admin Enoxaparin Sodium (Lovenox Inj) 40 mg Q24H SC 04/29/17 21:00 05/29/17 20:59 04/29/17 22:36 40 MG Acetaminophen (Tylenol Tab) 650 mg Q4H PRN PO 04/29/17 18:00 05/29/17 17:59 04/29/17 21:10 650 MG Al Hydrox/Mg Hydrox/Simethicone (Maalox Max Susp) 15 ml Q4H PRN PO 04/29/17 18:00 05/29/17 17:59 Magnesium Hydroxide (Milk Of Magnesia Susp) 30 ml Q12H PRN PO 04/29/17 18:00 05/29/17 17:59 Ondansetron HCl (Zofran Inj) 4 mg Q6H PRN IV 04/29/17 18:00 05/29/17 17:59 Polyethylene (Miralax Powder Packet) 17 gm DAILY PRN PO 04/29/17 18:00 05/29/17 17:59 Allopurinol (Zyloprim Tab) 100 mg DAILY PO 04/30/17 09:00 05/30/17 08:59 Amlodipine Besylate (Norvasc Tab) 5 mg PM PO 04/29/17 21:00 05/29/17 20:59 04/29/17 21:12 5 MG Aspirin (Ecotrin Tab) 81 mg QAM PO 04/30/17 09:00 05/30/17 08:59 Atenolol (Tenormin Tab) 100 mg BID PO 04/29/17 21:00 05/29/17 20:59 04/29/17 21:12 100 MG Lisinopril (Zestril Tab) 20 mg QAM PO 04/30/17 09:00 05/30/17 08:59 Simvastatin (Zocor Tab) 20 mg QPM PO 04/29/17 21:00 05/29/17 20:59 04/29/17 21:13 20 MG Magnesium Oxide (Mag-Ox Tab) 400 mg BID PO 04/29/17 21:00 05/29/17 20:59 04/29/17 21:12 400 MG Pantoprazole Sodium (Protonix Tab) 40 mg BID PO 04/29/17 21:00 05/29/17 20:59 04/29/17 21:12 40 MG Psyllium Hydrophilic Mucilloid (Metamucil Powder) 1 pkt TIDM PO 04/30/17 07:30 05/30/17 07:29 04/30/17 07:10 1 PKT Miscellaneous Information (Pharmacist Discharge Med Rec Consult) 1 ea UD PRN N/A 04/29/17 18:00 05/29/17 17:59 Miscellaneous (Iv Fluids Completed) 1 ea PRN PRN N/A 04/29/17 21:15 04/29/18 21:14 Diclofenac Sodium (Voltaren 1% Top Gel) 1 appln QID EXT 04/29/17 22:30 05/29/17 22:29 04/29/17 23:26 1 APPLN Description This is a 21 electrode EEG with a single channel dedicated to limited EKG. The electrodes were placed in accordance with the International 10-20 system. At the start of this recording the patient was an awake state. Background was well organized with a well formed anterior to posterior gradient. Background was composed of symmetric moderate amplitude mix of alpha and theta frequencies. There was a well-formed symmetric moderate amplitude 10 Hz posterior dominant rhythm that was reactive to eye opening and closure. Hyperventilation was not done. Photic stimulation at various frequencies did not produce any abnormalities. There was no state changes or sleep transients. Interpretation This is a normal awake only routine EEG There was no epileptiform discharges or electrographic seizures. Clinical Correlation A normal EEG does not rule out epilepsy if there is a strong clinical suspicion.
[2017-04-30] MEDS ORDERED: LISINOPRIL 20 MG TAB PO SCH (09:00)
[2017-04-30] MEDS ORDERED: ALLOPURINOL 100 MG TAB PO SCH (09:00)
[2017-04-30] MEDS ORDERED: ASPIRIN 81 MG ECTAB PO SCH (09:00)
[2017-04-30] MEDS: DICLOFENAC SOD 1% GEL 100 GM TUBE EXT SCH ×3 (09:17→17:35)
[2017-04-30] MEDS: PANTOprazole SOD 40 MG TAB PO SCH (09:17)
[2017-04-30] MEDS: MAGNESIUM OXIDE 400 MG TAB PO SCH (09:17)
--- NOTE | 2017-04-30 09:23 | Neurology Consultation ---
Neurology Consultation Date of Consultation: Apr 30, 2017. Attending Physician: Norris Puentes MD Primary Care Physician: Cyril John M.D. Reason for Consultation: Trouble speaking and concern for TIA History of Present Illness Source: patient, hospital records This is a 76-year-old male who presented for evaluation of left-sided chest pain. When he was in the emergency room and had just had nitroglycerin patch placed on his back, he reports shortly afterward he didn't feel well, was shaking all over, and had trouble getting his words out. He was trying to tell somebody that he didn't feel well. He reports that the shaking was occurring on both upper extremities at the same time while he was still conscious. He's never had anything like this before. No history of TIAs, strokes, or seizures. The person that was with him reported that it only lasted 1-2 minutes and then resolved. Patient reports that afterwards he had a significant headache. He denied any changes with his vision. Denied any new numbness or weakness. Denies any trouble swallowing. He reports that his had intermittent numbness and tingling in his first through third finger on the right hand for years typically in association with certain hand movements. Otherwise no new numbness or tingling. Patient reports that his at his baseline this morning but still has some residual muscular type chest pain on the left. Cardiac enzymes have been trended and have so far been negative. CT of the head report and images were reviewed by myself and unremarkable. Patient reports he is unable to get an MRI of the brain due to severe claustrophobia. He reports that he would "rather " then get an MRI. Ultrasound of the carotids were unremarkable. Total cholesterol 96, LDL 20, HDL 27, triglycerides 245. Hemoglobin A1c 5.0 Past Medical/Surgical History Medical Problems: (1) Difficulty with speech Status: Acute (2) Frequent PVCs Status: Acute (3) Left sided chest pain Status: Acute (4) Lower abdominal pain Status: Acute (5) Precordial chest pain Status: Acute Significant for hypertension, dyslipidemia, gout, Marrufo's a guess, diverticulitis status post sigmoidoscopy Family History Family history of CAD and diabetes Social History Patient is normally independent in his activities of daily living. Former tobacco use. Smoking Status: Former smoker Smokeless Tobacco Use: No Alcohol Use: none Drug Use: none Marital Status: Housing Status: lives with significant other Occupation Status: retired Allergies Coded Allergies: Codeine (Verified Adverse Reaction, Unknown, SICK IN STOMACH, 04/29/17) Morphine and Related (Verified Adverse Reaction, Unknown, nausea, 04/29/17 ) Current Inpatient Medications Current Inpatient Medications Medications (Trade) Dose Ordered Sig/Michael Route Start Time Stop Time Status Last Admin Dose Admin Enoxaparin Sodium (Lovenox Inj) 40 mg Q24H SC 04/29/17 21:00 05/29/17 20:59 04/29/17 22:36 40 MG Acetaminophen (Tylenol Tab) 650 mg Q4H PRN PO 04/29/17 18:00 05/29/17 17:59 04/29/17 21:10 650 MG Al Hydrox/Mg Hydrox/Simethicone (Maalox Max Susp) 15 ml Q4H PRN PO 04/29/17 18:00 05/29/17 17:59 Magnesium Hydroxide (Milk Of Magnesia Susp) 30 ml Q12H PRN PO 04/29/17 18:00 05/29/17 17:59 Ondansetron HCl (Zofran Inj) 4 mg Q6H PRN IV 04/29/17 18:00 05/29/17 17:59 Polyethylene (Miralax Powder Packet) 17 gm DAILY PRN PO 04/29/17 18:00 05/29/17 17:59 Allopurinol (Zyloprim Tab) 100 mg DAILY PO 04/30/17 09:00 05/30/17 08:59 Amlodipine Besylate (Norvasc Tab) 5 mg PM PO 04/29/17 21:00 05/29/17 20:59 04/29/17 21:12 5 MG Aspirin (Ecotrin Tab) 81 mg QAM PO 04/30/17 09:00 05/30/17 08:59 Atenolol (Tenormin Tab) 100 mg BID PO 04/29/17 21:00 05/29/17 20:59 04/29/17 21:12 100 MG Lisinopril (Zestril Tab) 20 mg QAM PO 04/30/17 09:00 05/30/17 08:59 Simvastatin (Zocor Tab) 20 mg QPM PO 04/29/17 21:00 05/29/17 20:59 04/29/17 21:13 20 MG Magnesium Oxide (Mag-Ox Tab) 400 mg BID PO 04/29/17 21:00 05/29/17 20:59 04/29/17 21:12 400 MG Pantoprazole Sodium (Protonix Tab) 40 mg BID PO 04/29/17 21:00 05/29/17 20:59 04/29/17 21:12 40 MG Psyllium Hydrophilic Mucilloid (Metamucil Powder) 1 pkt TIDM PO 04/30/17 07:30 05/30/17 07:29 04/30/17 07:10 1 PKT Miscellaneous Information (Pharmacist Discharge Med Rec Consult) 1 ea UD PRN N/A 04/29/17 18:00 05/29/17 17:59 Miscellaneous (Iv Fluids Completed) 1 ea PRN PRN N/A 04/29/17 21:15 04/29/18 21:14 Diclofenac Sodium (Voltaren 1% Top Gel) 1 appln QID EXT 04/29/17 22:30 05/29/17 22:29 04/29/17 23:26 1 APPLN Review of Systems Complete review of systems otherwise negative except for the above noted in history of present illness Physical Exam Vital Signs (Past 24 Hrs): Date Time Temp Pulse Resp B/P (MAP) Pulse Ox O2 Delivery O2 Flow Rate FiO2 04/30/17 08:13 36.9 74 18 160/69 (99) 97 04/30/17 08:00 Room Air 04/30/17 04:00 94 Room Air 04/30/17 03:38 36.3 66 16 135/67 (89) 95 Room Air 04/30/17 00:01 94 Room Air 04/29/17 23:22 36.6 63 20 120/66 (84) 94 Room Air 04/29/17 19:01 36.4 69 20 139/74 98 Room Air 04/29/17 18:16 65 18 118/66 93 Room Air 04/29/17 17:55 70 04/29/17 17:07 66 18 128/58 93 Room Air 04/29/17 15:29 67 18 146/75 93 Room Air 04/29/17 15:05 169/76 04/29/17 15:02 144/120 04/29/17 14:52 69 13 95 04/29/17 14:22 66 12 96 04/29/17 13:55 73 04/29/17 13:52 62 14 96 04/29/17 13:50 97 Room Air 04/29/17 13:47 168/75 04/29/17 13:31 36.8 69 20 189/87 97 Room Air Gen.: Patient is alert and sitting on the side of the bed, in no acute distress. HEENT: Normocephalic /atraumatic, no scleral icterus Heart: Regular rate and rhythm Extremities: No gross deformities or rashes noted Neurological examination: Mental status: Patient is alert and oriented x3. Attention and concentration normal for the situation. Good fund of knowledge. Remote and recent memory intact. Speech is fluent without any dysarthria or aphasia noted Cranial nerve: Funduscopic examination was unremarkable. No papilledema. Pupils equally round and reactive to light. Extraocular muscles intact without nystagmus. No facial asymmetry noted. Facial sensation intact. Tongue is midline. Good palatal elevation. Good shoulder shrug bilaterally. Hearing grossly intact to voice. Strength: 5/5 both proximal and distally in all extremities. There is no arm drift. Tone is normal. Sensation: Grossly intact to light touch in all extremities. Deep tendon reflexes: +1 in bilateral biceps, brachioradialis and patellar. Toes were downgoing to plantar stimulation Coordination: Patient had good finger to nose without dysmetria Station sitting on the side of the bed was normal Laboratory Results Past 24 Hours: 04/30/17 06:05 Red Blood Count 4.43, Mean Corpuscular Volume 84.0, Mean Corpuscular Hemoglobin 28.9, Mean Corpuscular Hemoglobin Concent 34.4, Mean Platelet Volume 9.9, Neutrophils (%) (Auto) 63.7, Lymphocytes (%) (Auto) 25.0, Monocytes (%) (Auto) 8.3, Eosinophils (%) (Auto) 2.2, Basophils (%) (Auto) 0.4, Neutrophils # (Auto) 4.57, Lymphocytes # (Auto) 1.80, Monocytes # (Auto) 0.60, Eosinophils # (Auto) 0.16, Basophils # (Auto) 0.03 04/30/17 06:05 Test 04/29/17 15:00 04/29/17 15:28 04/30/17 06:05 Prothrombin Time 10.7 SECONDS (9.0-12.0) Prothromb Time International Ratio 1.0 (0.9-1.1) Estimated Average Glucose 97 mg/dl Hemoglobin A1c 5.0 % (4.5-5.6) Total Bilirubin 0.5 mg/dl (0.2-1) Direct Bilirubin 0.1 mg/dl (0-0.2) Aspartate Amino Transf (AST/SGOT) 30 U/L (15-37) Alanine Aminotransferase (ALT/SGPT) 48 U/L (12-78) Alkaline Phosphatase 139 U/L (45-117) Total Protein 7.2 gm/dl (6.4-8.2) Albumin 4.0 gm/dl (3.4-5.0) Lipase 95 U/L (73-393) Bedside Glucose 94 mg/dl (70-99) White Blood Count 7.19 K/uL (4.8-10.8) Red Blood Count 4.43 M/uL (4.7-6.1) Hemoglobin 12.8 g/dL (14.0-18.0) Hematocrit 37.2 % (42-52) Mean Corpuscular Volume 84.0 fL (80-100) Mean Corpuscular Hemoglobin 28.9 pg (25-34) Mean Corpuscular Hemoglobin Concent 34.4 g/dl (32-36) Platelet Count 140 K/uL (130-400) Mean Platelet Volume 9.9 fL (7.4-10.4) Neutrophils (%) (Auto) 63.7 % Lymphocytes (%) (Auto) 25.0 % Monocytes (%) (Auto) 8.3 % Eosinophils (%) (Auto) 2.2 % Basophils (%) (Auto) 0.4 % Neutrophils # (Auto) 4.57 K/uL (1.4-6.5) Lymphocytes # (Auto) 1.80 K/uL (1.2-3.4) Monocytes # (Auto) 0.60 K/uL (0.11-0.59) Eosinophils # (Auto) 0.16 K/uL (0-0.5) Basophils # (Auto) 0.03 K/uL (0-0.2) RDW Standard Deviation 42.2 fL (36.4-46.3) RDW Coefficient of Variation 13.8 % (11.5-14.5) Immature Granulocyte % (Auto) 0.4 % Immature Granulocyte # (Auto) 0.03 K/uL (0.00-0.02) Anion Gap 7.0 mmol/L (3-11) Est Creatinine Clear Calc Drug Dose 59.1 ml/min Estimated GFR () 68.1 Estimated GFR (Non- 58.8 BUN/Creatinine Ratio 14.6 (10-20) Calcium Level 8.0 mg/dl (8.5-10.1) Magnesium Level 1.9 mg/dl (1.8-2.4) Total Creatine Kinase 115 U/L (39-308) Creatine Kinase MB 1.1 ng/ml (0.5-3.6) Creatine Kinase MB Ratio 1.0 (0-3.0) Troponin I < 0.015 ng/ml (0-0.045) Triglycerides Level 245 mg/dl (0-150) Cholesterol Level 96 mg/dl (0-200) HDL Cholesterol 27 mg/dl LDL Cholesterol, Calculated 20 mg/dl VLDL Cholesterol, Calculated 49 mg/dl Cholesterol/HDL Ratio 3.6 Imaging As noted above in history of present illness Impression This is a 76-year-old male who had generalized shaking with preserved consciousness and speech disturbance shortly after receiving nitroglycerin patch for chest pain. While the patient does have vascular risk factors including hypertension and dyslipidemia, event is NOT highly specific or concerning for TIA or seizure at this time. Likely medication reaction or anxiety response to nitroglycerin patch. Plan EEG was ordered by myself this morning and was a normal awake EEG. Continue home aspirin and statin medication. No additional neurological recommendations at this time. While ideally would be nice to have an MRI to rule out any ischemic changes, considering the patient's severe claustrophobia and low suspicion for TIA or seizure, I do not think that it's necessary to push the issue on MRI. Thank you for allowing me to participate in this patient's care. If there is any questions or concerns, feel free to call/page me. General neurology vascular risk factor modifications and recommendations: Blood pressure recommendations 130/80-110/70 Total cholesterol goal 100- 200 and LDL goal less than 100 Hemoglobin A1c goal less than 7 Encourage cardiovascular exercise at least 3 times a week for 30 minutes.
[2017-04-30 11:49] VITALS: BP 129/82; PULSE 69; TEMP 36.8; O2SAT 96
--- NOTE | 2017-04-30 13:00 | Discharge Instructions ---
Discharge Instructions Date of Service Apr 30, 2017. Admission Reason for Admission: Chest Pain,Expressive Aphasia Discharge Discharge Diagnosis / Problem: chest pain Discharge Goals Goal(s): Decrease discomfort Activity Recommendations Activity Limitations: resume your previous activity Driving or Machine Use: no limitations . Instructions / Follow-Up Instructions / Follow-Up Please follow with Dr. John on SaturdayMay 06 at 10:00 Current Hospital Diet Patient's current hospital diet: AHA Diet (Heart Healthy) Discharge Diet Recommended Diet: AHA Diet (Heart Healthy) Procedures Procedures Performed: Carotid doppler Head CT Chest x ray Pending Studies Studies pending at discharge: no Laboratory Results Hemoglobin A1c Test 04/29/17 15:00 Range/Units Estimated Average Glucose 97 mg/dl Hemoglobin A1c 5.0 4.5-5.6 % Lipid Panel Test 04/30/17 06:05 Range/Units Triglycerides Level 245 H 0-150 mg/dl Cholesterol Level 96 0-200 mg/dl HDL Cholesterol 27 mg/dl Cholesterol/HDL Ratio 3.6 LDL Cholesterol, Calculated 20 mg/dl Medical Emergencies . Who to Call and When: Medical Emergencies: If at any time you feel your situation is an emergency, please call 911 immediately. . Non-Emergent Contact Non-Emergency issues call your: Primary Care Provider Call Non-Emergent contact if: your pain is not controlled, your pain is worsening . Past History Medical & Surgical History: (1) Left sided chest pain . "Provider Documentation" section prepared by Maryanne Sadler. . VTE Core Measure Inpt VTE Proph given/why not?: Enoxaparin (Lovenox)SQ, T.E.D. Stockings, SCD's
[2017-04-30] MEDS ORDERED: VLTG EXT (13:09)
--- NOTE | 2017-04-30 15:19 | Discharge Summary ---
Discharge Summary Date of Service Apr 30, 2017. (Maryanne Sadler CRNP) Discharge Summary Admission Date: Apr 29, 2017 at 18:03 Discharge Date: Apr 30, 2017 Discharge Disposition: Home Principal Diagnosis: musculoskeletal chest pain Problems/Secondary Diagnoses: HTN HLD diastolic dysfunction gout Marrufo's esophagus GERD diverticulitis s/p sigmoidectomy Procedures: Echo Carotid US IMPRESSION: No evidence of a hemodynamically significant stenosis. Head CT IMPRESSION: There is no hemorrhage, mass effect, or evidence of acute territorial ischemia by CT criteria. CXR IMPRESSION: No acute process (Maryanne Sadler CRNP) Problems/Secondary Diagnoses: transient right hand numbness with expressive aphasia - possibly due to medication side effect? Procedures: EEG - no seizure focus. Echocardiogram: -- Conclusions -- * 1. Normal LV size, mild concentric LVH. * 2. Normal LV systolic function. LVEF 55-60%. No regional wall motion abnormalities. * 3. Normal RV size and function. * 4. No signficant valvular pathology. * 5. Compared with prior study on 08/02/2015: No significant changes. (Norris Puentes MD) Medication Reconciliation New Medications: Diclofenac Sod (Voltaren) 100 Appln/100 Gm Gel 1 APPLN EXT QID for 14 Days, #1 TUBE Continued Medications: Allopurinol (Allopurinol) 100 Mg Tab 100 MG PO DAILY Amlodipine (Norvasc) 5 Mg Tab 5 MG PO PM Aspirin (Aspirin Ec) 81 Mg Tab 81 MG PO QAM Atenolol (Tenormin) 100 Mg Tab 100 MG PO BID Lisinopril (Zestril) 20 Mg Tab 20 MG PO QAM Magnesium Oxide (Mg Supplement (Magnesium Oxide) 400 Mg Tab 400 MG PO BID Omeprazole (Prilosec) 20 Mg Capcr 20 MG PO BID, CAP Psyllium (Metamucil) 0.52 Gm Cap Simvastatin (Zocor) 20 Mg Tab 20 MG PO QPM Discharge Exam ROS Constitutional: no chills, aches, sweats or fever Respiratory: no sob,cough, sputum, or wheezing Cardiac: no chest pain, palpitations, edema, orthopnea or lightheadedness GI: no abdominal pain, nausea, vomiting, diarrhea or constipation : no dysuria or hesitancy Extremities: no joint pain or weakness Skin: no rash PE General: no distress Eyes: normal inspection, PERLL Respiratory: chest non tender, clear to auscultation, normal breath sounds, no respiratory distress, no accessory muscle use Cardiac: regular rate and rhythm, no rub or gallop, no murmur, no edema, no jvd GI/: active bowel sounds, no abd pain or tenderness, soft, non distended Extremities: normal range of motion, normal strength, tender right arm when adducted across chest. Neuro/Psych: alert and oriented x 3, normal mood and affect Skin: normal color, dry (Maryanne Sadler, [employer]) Hospital Course 76 y/o male with a history of HTN, HLD, diastolic dysfunction, gout, Marrufo's esophagus, GERD, and diverticulitis s/p sigmoidectomy who presented to the ED on 04/29 with left sided chest pain. While in ED, pt had brief episode of shaking and expressive aphasia. Chest pain, ACS r/o -Admitted to telemetry -Troponins negative - EKG showed SR with 1st deg AV block - pain appears to be musculoskeletal. Patient had been more active than usual the day the pain began. He also stated that the pain was reproducible with twisting motions - Echocardiogram - Would consider stress test outpatient. Given the neurological episode, thought it prudent to hold off on stress as chest pain was unlikely of cardiac etiology Expressive aphasia--resolved, brief episode lasting 1-2 minutes -Stroke protocol -Pt refused MRI, CT head was negative for acute -Carotid ultrasound show no significant stenosis -Fasting lipids showed elevated triglycerides, A1c was 5.0%. -Continued ASA, beta tejas, JEANINE, and statin -Neurology feels the episode is due to nitro paste administration and the patient feels this as well as symptoms developed moments after its administration. L shoulder pain - exam c/w supraspinatus tendonitis - voltaren gel provided relief Right fingers numbness - thumb and first three fingers, numbness is chronic and occurs after working with hands - consistent with tendinitis - follow outpatient if symptoms continue HTN--stable -Continued amlodipine 5 mg PO qd, atenolol 100 mg PO BID and lisinopril 20 mg PO qd HLD -Continued simvastatin 20 mg PO hs Gout--stable -Continued allopurinol 100 mg PO qd Marrufo's esophagus/GERD--stable -Converted Prilosec to Protonix 40 mg PO BID DVT prophylaxis -Enoxaparin 40 mg SC q24h -YASH valentin and SCDs Code Status -Level I, FULL RESUSCITATION STATUS Total Time Spent: Less than 30 minutes This includes examination of the patient, discharge planning, medication reconciliation, and communication with other providers. (Maryanne Sadler CRNP) Attending Discharge Note & Attestation: Pt seen/examined, chart reviewed, discharge care plan d/w KAMI Sadler. I agree w/ the blanton components of her documentation. 76yo male with multiple medical problems as listed above who presented with left lower chest wall pain that began on AM of presentation. While awaiting admission in the ER he was given nitro-paste and within a short time period developed <90 seconds of expressive aphasia with right hand numbness. He later told us that the right hand numbness is chronic. Cardiac work-up including 3 sets of cardiac enzymes, telemetry, EKGs, and echocardiogram were all entirely normal. His chest pain was reproducible on physical exam throughout his entire stay. Stress test was NOT performed due to the neurological symptoms he had had in the ER. Work-up for the brief aphasic spell including CT head, carotid duplex study, telemetry, and echocardiogram were normal. MRI was refused by patient. Seen by neurology - symptoms were thought not to be from a TIA but possibly from nitropaste administration as the symptoms began shortly after the nitro was applied. EEG also performed and was negative for seizure focus. Discharge exam - gen - nad heart - RRR, s1, s2, no murmur chest - reproducible chest wall tenderness, left lower chest, with palpation lungs - CTA b/l abd - soft, NT, ND, BS+ ext - no edema, pulses 2+ b/l neuro - strength 5/5 x 4 exts, speech fluent, no facial droop His chest symptoms were felt to be musculoskeletal in nature given the reproducibility. However, if chest symptoms were to recur then STRESS TEST STRONGLY ADVISED. I counseled the patient on this recommendation and he voiced understanding. Aspiring therapy to be continued as outpatient. f/u with PCP on May 06 was arranged prior to discharge. Norris Puentes MD (Norris Puentes MD) Discharge Instructions Please refer to the electronic Patient Visit Report (Discharge Instructions) for additional information. (GuilMaryanne velazquez CRNP) Follow-Up Follow with primary on May.06 (Maryanne Sadler CRNP) Additional Copies To Cyril John M.D.
[2017-04-30 16:52] VITALS: BP 129/82; PULSE 69; TEMP 36.8; O2SAT 96
--- NOTE | 2017-04-30 17:07 | ECHOCARDIOGRAM REPORT ---
*NOTICE TO RECEIVING [employer] This information is strictly Confidential and protected under [place] law. [place] law prohibits you from making any further disclosure of this information unless further disclosure is expressly permitted by the written consent of the person to whom it pertains or is authorized by law. A general authorization for the release of medical or other information is not sufficient for this purpose. Hospital accepts no responsibility if the information is made available to any other person, INCLUDING THE PATIENT. Interpretation Summary * Name: SINDY DIXON Study Date: 04/30/2017 07:25 AM BP: 135/67 mmHg * Patient Location: C.2T\S\S238\S\2 HR: 66 * : 1940 (M/d/yyy) Gender: Male Height: 69 in * Age: 76 yrs Ethnicity: [place] Weight: 220 lb * Ordering Physician: Carolann Kang * Referring Physician: Self, Referred * Performed By: Isabela Montiel RCS * * Reason For Study: Chest Pain * BSA: 2.2 m2 * -- Conclusions -- * 1. Normal LV size, mild concentric LVH. * 2. Normal LV systolic function. LVEF 55-60%. No regional wall motion abnormalities. * 3. Normal RV size and function. * 4. No signficant valvular pathology. * 5. Compared with prior study on 08/02/2015: No significant changes. Procedure Details * A complete two-dimensional transthoracic echocardiogram was performed (2D, M-mode, Doppler and color flow Doppler). Left Ventricle * The left ventricle is grossly normal size. * There is mild concentric left ventricular hypertrophy. * Ejection Fraction = 55-60%. * No regional wall motion abnormalities noted. Right Ventricle * The right ventricle is grossly normal size. * The right ventricular systolic function is normal as assessed by tricuspid annular plane systolic excursion (TAPSE) (normal >1.5 cm). Atria * The left atrial size is normal. * Right atrial size is normal. * No ASD detected; PFO is not assessed. Mitral Valve * The mitral valve is grossly normal. * There is mild mitral annular calcification. * There is no mitral valve stenosis. * There is trace mitral regurgitation. Tricuspid Valve * The tricuspid valve is not well visualized, but is grossly normal. * There is trace tricuspid regurgitation. Aortic Valve * The aortic valve opens well. * The aortic valve is trileaflet. * No hemodynamically significant valvular aortic stenosis. * There is no significant aortic regurgitation. Pulmonic Valve * The pulmonary valve is inadequately visualized, but the Doppler data is adequate for interpretation. * Pulmonic stenosis is absent. * Mild pulmonic valvular regurgitation. Great Vessels * The aortic root and proximal ascending aorta are normal sized. Pericardium/Pleural * There is no pericardial effusion. MMode 2D Measurements and Calculations IVSd 1.2 cm IVSs 1.3 cm LVIDd 3.8 cm LVIDs 2.5 cm LVPWd 1.2 cm LVPWs 1.4 cm IVS/LVPW 1.1 FS 33.2 % EDV(Teich) 62.2 ml ESV(Teich) 23.3 ml EF(Teich) 62.5 % EDV(cubed) 55.1 ml ESV(cubed) 16.5 ml EF(cubed) 70.1 % % IVS thick 5.1 % % LVPW thick 21.6 % LV mass(C)d 154.1 grams LV mass(C)dI 71.6 grams/m\S\2 LV mass(C)s 108.2 grams LV mass(C)sI 50.3 grams/m\S\2 SV(Teich) 38.9 ml SI(Teich) 18.1 ml/m\S\2 SV(cubed) 38.7 ml SI(cubed) 18.0 ml/m\S\2 Ao root diam 3.8 cm Ao root area 11.3 cm\S\2 ACS 1.9 cm LA dimension 3.5 cm asc Aorta Diam 3.1 cm LA/Ao 0.92 EDV(MOD-sp4) 82.4 ml ESV(MOD-sp4) 40.7 ml EF(MOD-sp4) 50.6 % EDV(MOD-sp2) 121.8 ml ESV(MOD-sp2) 44.1 ml EF(MOD-sp2) 63.8 % SV(MOD-sp4) 41.7 ml SI(MOD-sp4) 19.4 ml/m\S\2 SV(MOD-sp2) 77.7 ml SI(MOD-sp2) 36.1 ml/m\S\2 Doppler Measurements and Calculations MV E max jacob 115.9 cm/sec MV A max jacob 145.8 cm/sec MV E/A 0.79 MV P1/2t max jacob 123.1 cm/sec MV P1/2t 63.9 msec MVA(P1/2t) 3.4 cm\S\2 MV dec slope 563.6 cm/sec\S\2 MV dec time 0.31 sec Ao V2 max 104.6 cm/sec Ao max PG 4.4 mmHg Ao max PG (full) 2.8 mmHg LV V1 max PG 1.6 mmHg LV V1 max 62.4 cm/sec PA V2 max 83.3 cm/sec PA max PG 2.8 mmHg PI max jacob 182.5 cm/sec PI max PG 13.6 mmHg PI dec slope 195.6 cm/sec\S\2 PI P1/2t 273.3 msec TR max jacob 247.1 cm/sec
== END 2017-04-30 18:06 | disposition home or self-care (01) ==
LOC: C.EDB 13:23 → C.2T 18:03 → ENRESERV 18:12
PROVIDERS: ADMIT Family Medicine; ATTEND Internal Medicine
DX: R07.9 Chest pain, unspecified (principal); F80.1 Expressive language disorder; I10 Essential (primary) hypertension; Z87.11 Personal history of peptic ulcer disease; K21.9 Gastro-esophageal reflux disease without esophagitis; Z79.899 Other long term (current) drug therapy

== ENCOUNTER → 2017-08-09 | Outpatient (CLI) | payer BC, OTHER ==
[~2017-08-09] MED LIST changes: +AMLO-110 PO; +ATEN-175 PO; -FLM4 PO; +LISI-725 PO; +PSYL0.524; +SIMV20TA2 PO; +VLTG EXT
[2017-08-09 13:31] LABS: ALBUMIN 3.8 gm/dl (3.4-5.0); ALKALINE PHOSPHATASE 140 U/L (45-117); ALT/SGPT 47 U/L (12-78); AST/SGOT 35 U/L (15-37); BLOOD UREA NITROGEN 12 mg/dl (7-18); CALCIUM 8.1 mg/dl (8.5-10.1); CARBON DIOXIDE 28 mmol/L (21-32); CHOLESTEROL 89 mg/dl (0-200); CREATININE 1.09 mg/dl (0.60-1.40); GLUCOSE 105 mg/dl (70-99); LDL CHOLESTEROL CALCULATED 27 mg/dl; POTASSIUM 3.8 mmol/L (3.5-5.1); SODIUM 138 mmol/L (136-145); TOTAL PROTEIN 7.3 gm/dl (6.4-8.2)
== END | disposition home or self-care (01) ==
LOC: C.LABPVFM 07:20
PROVIDERS: ATTEND Family Medicine
DX: E78.5 Hyperlipidemia, unspecified (principal); M10.9 Gout, unspecified; K22.70 Barrett's esophagus without dysplasia; R73.9 Hyperglycemia, unspecified; K59.00 Constipation, unspecified

== ENCOUNTER 2017-09-10 22:54 | Emergency (ER) | payer BC, OTHER ==
[~2017-09-10] VITALS: Ht 175.3 cm; Wt 86.7 kg
[2017-09-10 22:59] VITALS: TEMP 37; Ht 175.3 cm; Wt 86.7 kg
[2017-09-10] MEDS ORDERED: ALBUT/IPRATROP 3MG/0.5MG NEB 3 ML VIAL INH STA (23:17)
[2017-09-10] MEDS ORDERED: ACETAMINOPHEN 325 MG TAB PO STA (23:18)
[2017-09-11 00:44] LABS: INFLUENZA A PCR Neg for Influ A (NEG); INFLUENZA B PCR POS for Influ B (NEG)
[2017-09-11 00:53] VITALS: BP 127/63; PULSE 87; O2SAT 92
[2017-09-11] MEDS ORDERED: BENZ-54 PO (00:56)
[2017-09-11] MEDS ORDERED: OSEL12.5 PO (00:56)
[2017-09-11] MEDS ORDERED: OSELTAMIVIR PHOSPHATE SUSP 30 MG/5 ML UDP PO ONE (01:00)
[2017-09-11] MEDS ORDERED: ALBUTEROL HFA 8 GM INHALER INH ONE (01:00)
--- NOTE | 2017-09-11 01:00 | EMERGENCY ROOM VISIT NOTE ---
History Report prepared by Juno: Trisha Alatorre Under the Supervision of: Dr. Yvonne Ho M.D. First contact with patient: 23:08 Chief Complaint: COUGH Stated Complaint: BAD COLD WITH FEVER Nursing Triage Summary: Patient reports recent cold with cough and congestion. Patient reports coughing so bad his ribs hurt. History of Present Illness The patient is a 76 year old male who presents to the Emergency Room with complaints of persistent flu like symptoms that began about 3 days ago. He reports that he has been experiencing a cold, sore throat, some urine retention , subjective fevers, vomiting, and coughing that causes shortness of breath and abdominal pain. The patient states his symptoms have been making it difficult for him to fall asleep. He denies any ear pain, previous history of urine retention, or being a diabetic. The patient notes that he got a flu shot this year. Source of History: patient Onset: 3 days ago Position: other (diffuse) Quality: other (flu like symptoms) Timing: other (persistent) Associated Symptoms: + fevers (subjective), + cough, + SOB, + vomiting, + abdominal pain Note: Associated symptoms include: urine retention and a cold. Review of Systems See HPI for pertinent positives & negatives. A total of 10 systems reviewed and were otherwise negative. Past Medical & Surgical Medical Problems: (1) Colectomy (2) Colonoscopy (3) Diverticulitis (4) EGD (5) Expressive aphasia (6) Gastroesophageal reflux disease (7) HTN (hypertension) (8) PERSONAL HISTORY OF PEPTIC ULCER DISEASE Family History Cardiovascular disease Diabetes mellitus Heart disease Social History Smoking Status: Never Smoker Alcohol Use: none Drug Use: none Marital Status: Housing Status: lives with significant other Occupation Status: retired Current/Historical Medications Scheduled Allopurinol (Allopurinol), 100 MG PO DAILY Amlodipine (Norvasc), 5 MG PO PM Aspirin (Aspirin Ec), 81 MG PO QAM Atenolol (Tenormin), 100 MG PO BID Lisinopril (Zestril), 20 MG PO QAM Magnesium Oxide (Mg Supplement (Magnesium Oxide), 400 MG PO BID Omeprazole (Prilosec), 20 MG PO BID Oseltamivir Phosphate (Tamiflu), 5 ML PO BID Simvastatin (Zocor), 20 MG PO QPM Scheduled PRN Benzonatate (Tessalon Perles), 100 MG PO TID PRN for Cough Allergies Coded Allergies: Codeine (Verified Adverse Reaction, Unknown, SICK IN STOMACH, 09/10/17) Morphine and Related (Verified Adverse Reaction, Unknown, nausea, 09/10/17) Physical Exam Vital Signs Date Time Temp Pulse Resp B/P (MAP) Pulse Ox O2 Delivery O2 Flow Rate FiO2 09/11/17 00:53 87 16 127/63 92 Room Air 09/10/17 23:09 96 Room Air 09/10/17 22:59 37.0 94 18 165/72 92 Room Air Physical Exam Vital signs reviewed. General: Elderly, generally well-appearing male, in no significant distress. HEENT: Tympanic membranes are clear. Posterior oropharynx is clear. No scleral icterus, PERRLA, neck supple. Atraumatic. Cardiovascular: Regular rate and rhythm, no extra sounds. Pulmonary: Wheezes to lung krishna bilaterally. Dry cough on exam. Abdomen: Soft, nontender, nondistended, positive bowel sounds. Musculoskeletal: Atraumatic, no peripheral edema. Neurologic: Patient awake alert and oriented x 3 Skin: No peripheral edema. Warm, dry, no rash Medical Decision & Procedures ER Provider Diagnostic Interpretation: Chest 2 view x-ray results as stated below per interpretation by me: Density to bilateral mid lung field likely soft tissue overlay. No focal lung consolidation. Normal mediastinal. Laboratory Results Test 09/10/17 23:30 09/10/17 23:35 Influenza Type A (RT-PCR) Neg for Influ A (NEG) Influenza Type B (RT-PCR) POS for Influ B (NEG) Urine Color YELLOW Urine Appearance CLEAR (CLEAR) Urine pH 7.0 (4.5-7.5) Urine Specific [place] 1.024 (1.000-1.030) Urine Protein 2+ (NEG) Urine Glucose (UA) NEG (NEG) Urine Ketones NEG (NEG) Urine Occult Blood TRACE (NEG) Urine Nitrite NEG (NEG) Urine Bilirubin NEG (NEG) Urine Urobilinogen NEG (NEG) Urine Leukocyte Esterase TRACE (NEG) Urine WBC (Auto) 1-5 /hpf (0-5) Urine RBC (Auto) 0-4 /hpf (0-4) Urine Hyaline Casts (Auto) 1-5 /lpf (0-5) Urine Epithelial Cells (Auto) >30 /lpf (0-5) Urine Bacteria (Auto) NEG (NEG) Urine Sperm (Auto) PRESENT (NOT PRESENT) Medications Administered Medications (Trade) Dose Ordered Sig/Michael Route Start Time Stop Time Status Last Admin Dose Admin Albuterol/ Ipratropium (Duoneb) 3 ml NOW STAT INH 09/10/17 23:17 09/10/17 23:18 DC 09/10/17 23:42 3 ML Acetaminophen (Tylenol Tab) 650 mg NOW STAT PO 09/10/17 23:18 09/10/17 23:19 DC 09/10/17 23:43 650 MG Oseltamivir Phosphate (Tamiflu Susp) 30 mg ONE ONCE PO 09/11/17 01:00 09/11/17 01:01 DC 09/11/17 01:20 30 MG ED Course 2313: Past medical records reviewed. The patient was evaluated in room B11A. A complete history and physical examination was performed. 2317: Ordered Duoneb 3ml INH. 2318: Ordered Tylenol Tab 650mg PO. 0100: Ordered Tamiflu Susp 30mg PO. 0101: Upon reevaluation, the patient appeared to have improvement of his symptoms. I discussed findings with him. He verbalized agreement of the treatment plan. The was discharged home. Medical Decision Differential diagnosis: Etiologies such as infections, reactive airway disease, influenza, pneumonia, pneumothorax, COPD, CHF, cardiac ischemia, pulmonary embolism, musculoskeletal, gastrointestinal, as well as others were entertained. This patient was evaluated and appeared to be in no significant distress. Chest x-ray was performed and reveals no evidence of focal lung consolidation to my interpretation. Patient was given a DuoNeb treatment, p.o. Tylenol. He has tested positive for influenza B. Patient is within the 48 hours for the onset of treatment. He was given 30 mg of p.o. Tamiflu twice daily for 5 days, started in the ER. Patient has a decreased renal function based on previous laboratory work. He was advised of the findings. Patient was sent with an albuterol inhaler, prescription for Tessalon Perles as well as Tamiflu suspension. He will follow-up with his primary care physician this week and return to the ER for worsening of symptoms or any medical concerns. Medication Reconcilliation Current Medication List: was personally reviewed by me Blood Pressure Screening Patient's blood pressure: Normal blood pressure Blood pressure disposition: Did not require urgent referral Impression Primary Impression: Influenza B Scribe Attestation The scribe's documentation has been prepared under my direction and personally reviewed by me in its entirety. I confirm that the note above accurately reflects all work, treatment, procedures, and medical decision making performed by me. Departure Information Dispostion Home / Self-Care Prescriptions Oseltamivir Phosphate (TAMIFLU) 6 Mg/Ml Temitope 5 ML PO BID for 5 Days, #50 ML Prov: Yvonne Ho M.D. 09/11/17 Benzonatate (TESSALON PERLES) 100 Mg Cap 100 MG PO TID Y for Cough, #20 CAP Prov: Yvonne Ho M.D. 09/11/17 Referrals Cyril John M.D. (PCP) Forms HOME CARE DOCUMENTATION FORM, IMPORTANT VISIT INFORMATION Patient Instructions My [facility] Additional Instructions Diagnosis: Influenza B Albuterol 2 puffs every 4 hours as needed for wheezing or cough. Tamiflu 30 mg twice daily for 5 days. Tessalon Perles 100 mg 3 times a day as needed for cough. Tylenol 650 mg every 6 hours as needed for pain or fever. Drink plenty of clear fluids and follow-up with your PCP this week for reevaluation. Return to the emergency department for worsening of symptoms or any medical concerns.
--- NOTE | 2017-09-11 06:38 | DIAGNOSTIC IMAGING REPORT ---
CHEST 2 VIEWS ROUTINE HISTORY: 76 years-old Male cough, fever acute cough and fever COMPARISON: Chest radiographs 04/29/2017 TECHNIQUE: None available FINDINGS: Cardiomediastinal and hilar silhouettes are within normal limits. Mild hyperinflation without pneumothorax, pleural effusion, focal airspace consolidation or overt pulmonary edema. The bones of the chest appear grossly intact. Degenerative changes noted within the shoulders and spine. IMPRESSION: Mild hyperinflation without acute process. The above report was generated using voice recognition software. It may contain grammatical, syntax or spelling errors. Electronically signed by: Ac Young M.D. 09/11/2017 6:37 AM Dictated Date/Time: 09/11/2017 6:35 AM
== END 2017-09-11 01:09 | disposition home or self-care (01) ==
LOC: C.EDB 22:54
DX: J10.1 Influenza due to other identified influenza virus with other respiratory manifestations (principal); R94.4 Abnormal results of kidney function studies; I10 Essential (primary) hypertension; K21.9 Gastro-esophageal reflux disease without esophagitis; Z90.49 Acquired absence of other specified parts of digestive tract; Z83.3 Family history of diabetes mellitus; Z82.49 Family history of ischemic heart disease and other diseases of the circulatory system; Z79.82 Long term (current) use of aspirin; Z88.5 Allergy status to narcotic agent

== ENCOUNTER 2017-09-14 20:16 | Emergency (ER) | payer BC, OTHER ==
[~2017-09-14] VITALS: Ht 175.3 cm; Wt 97.3 kg
[~2017-09-14 20:16] MED LIST changes: +BENZ-54 PO; +OSEL12.5 PO; -PSYL0.524; -VLTG EXT
[2017-09-14 20:21] VITALS: TEMP 36.7; Ht 175.3 cm; Wt 97.3 kg
--- NOTE | 2017-09-14 20:39 | EMERGENCY ROOM VISIT NOTE ---
History Report prepared by Juno: Carlos Collazo Under the Supervision of: Dr. Chun Lewis M.D. First contact with patient: 20:27 Chief Complaint: RESPIRATORY PROBLEMS Stated Complaint: CONGESTION,HEADACHE,DIFFICULTY BREATHING History of Present Illness The patient is a 76 year old male who presents to the Emergency Room with complaints of intermittent shortness of breath beginning last night and lasting throughout the day today. The patient's reports that the patient was in the ED on Saturday night when he was diagnosed with Type B influenza. The patient reports that he is currently taking Tamiflu and notes that he took his last dose at 1800 this evening. The patient states that he has been experiencing an intermittent fever since yesterday, a non-productive cough, body aches and flu like symptoms, and a headache that he rates at a 4/10 in intensity. He notes that his symptoms are gradually worsening. The patient denies any history of lung problems, using an inhaler, pain or swelling in his legs, chest pain, urinary symptoms, sore throat, nausea, diarrhea, or a history of diabetes. The patient reports that he is hypertensive. Source of History: patient, spouse/significant other Onset: last night Position: other (global ) Timing: intermittent Associated Symptoms: + fevers, + headache, + cough, No sorethroat, No chest pain, No nausea, No diarrhea, No urinary symptoms Note: Associated Symptoms: Body aches and other flu-like symptoms Denies: Pain or swelling in his legs. Review of Systems See HPI for pertinent positives & negatives. A total of 10 systems reviewed and were otherwise negative. Past Medical & Surgical Medical Problems: (1) Colectomy (2) Colonoscopy (3) Diverticulitis (4) EGD (5) Expressive aphasia (6) Gastroesophageal reflux disease (7) HTN (hypertension) (8) PERSONAL HISTORY OF PEPTIC ULCER DISEASE Old medical records were reviewed. Nurse's notes were reviewed and I agree with. Family History Cardiovascular disease Diabetes mellitus Heart disease Social History Smoking Status: Former Smoker Alcohol Use: none Drug Use: none Marital Status: Housing Status: lives with significant other Occupation Status: retired Current/Historical Medications Scheduled Allopurinol (Allopurinol), 100 MG PO DAILY Amlodipine (Norvasc), 5 MG PO PM Amoxicillin & Pot Clavulanate (Augmentin 875-125 mg), 875 MG PO BID Aspirin (Aspirin Ec), 81 MG PO QAM Atenolol (Tenormin), 100 MG PO BID Lisinopril (Zestril), 20 MG PO QAM Magnesium Oxide (Mg Supplement (Magnesium Oxide), 400 MG PO BID Omeprazole (Prilosec), 20 MG PO BID Oseltamivir Phosphate (Tamiflu), 1 DOSE PO DAILY Prednisone (Prednisone), 50 MG PO DAILY Psyllium (Metamucil), 1 TBS PO BID Simvastatin (Zocor), 20 MG PO QPM Scheduled PRN Albuterol Hfa (Ventolin Hfa), 2 PUFFS INH Q4H PRN for Shortness of Breath Benzonatate (Tessalon Perles), 100 MG PO TID PRN for Cough Allergies Coded Allergies: Codeine (Verified Adverse Reaction, Intermediate, SICK IN STOMACH, 09/14/17 ) Morphine and Related (Verified Adverse Reaction, Intermediate, nausea, ) Uncoded Allergies: UNKNOWN B/P MED (Allergy, Unknown, "SEVERE NAIDU", 09/14/17) Physical Exam Vital Signs Date Time Temp Pulse Resp B/P (MAP) Pulse Ox O2 Delivery O2 Flow Rate FiO2 09/15/17 00:21 82 20 177/74 93 Room Air 09/14/17 22:48 91 20 154/72 96 Nasal Cannula 2.0 09/14/17 22:30 83 09/14/17 22:28 94 Nasal Cannula 2.0 09/14/17 22:00 94 Nasal Cannula 2.0 09/14/17 21:48 80 18 152/76 91 Room Air 09/14/17 21:02 90 Room Air 09/14/17 20:21 36.7 81 18 186/80 92 Room Air Physical Exam General:mildly-ill appearing, nontoxic older male in no acute distress. Dry hacking cough. HEENT: Normal cephalic atraumatic. Pupils are equal round and reactive to light. Sclera are anicteric. Extraocular movements are intact. Oropharynx is pink with moist mucous membranes. No swelling of the mouth lips or tongue. Baseline disconjugate gaze. Neck: Supple with a midline trachea. No meningeal signs or stiffness, no JVD or bruits. No Stridor. Chest: Clear to auscultation bilaterally. No wheezes or rhonchi. No increased work of breathing. Heart: regular rate and rhythm. Lungs: Coarse breath sounds bilaterally Abdomen: Soft nontender, nondistended without rebound guarding or rigidity. Extremities: No cyanosis clubbing or edema. No calf tenderness or assymetry Spine/Back. Non tender to palpation. No CVA tenderness Skin: Good turgor without rashes. Neurologic exam: Cranial nerves two through 12 are intact. Motor and sensation are intact and symmetrical throughout. Medical Decision & Procedures ER Provider Diagnostic Interpretation: Radiology results as stated below per my review and radiologist interpretation: CHEST ONE VIEW PORTABLE CLINICAL HISTORY: CHEST PAIN dyspnea COMPARISON STUDY: 09/10/2017 FINDINGS: The bones soft tissues and hemidiaphragms are normal. The cardiomediastinal silhouette is normal. The lungs are clear. The pulmonary vasculature is normal. IMPRESSION: Negative chest. The above report was generated using voice recognition software. It may contain grammatical, syntax or spelling errors. Electronically signed by: Vic Carpio M.D. 09/14/2017 9:16 PM Dictated Date/Time: 09/14/2017 9:15 PM CTA CHEST: No pulmonary embolism. Centrilobular emphysema. Subtle centrilobular nodules in the right lower lobe, possibly infectious in etiology. Moderate atherosclerosis of the aorta with calcified and noncalcified plaques. Radiologist: Ángel Starr MD. Laboratory Results 09/14/17 21:30 Red Blood Count 4.94, Mean Corpuscular Volume 81.4, Mean Corpuscular Hemoglobin 28.3, Mean Corpuscular Hemoglobin Concent 34.8, Mean Platelet Volume 9.6, Neutrophils (%) (Auto) 60.6, Lymphocytes (%) (Auto) 25.9, Monocytes (%) (Auto) 11.3, Eosinophils (%) (Auto) 1.6, Basophils (%) (Auto) 0.2, Neutrophils # (Auto ) 2.99, Lymphocytes # (Auto) 1.28, Monocytes # (Auto) 0.56, Eosinophils # (Auto ) 0.08, Basophils # (Auto) 0.01 09/14/17 21:30 Test 09/14/17 21:30 09/14/17 21:40 09/14/17 21:47 White Blood Count 4.94 K/uL (4.8-10.8) Red Blood Count 4.94 M/uL (4.7-6.1) Hemoglobin 14.0 g/dL (14.0-18.0) Hematocrit 40.2 % (42-52) Mean Corpuscular Volume 81.4 fL (80-100) Mean Corpuscular Hemoglobin 28.3 pg (25-34) Mean Corpuscular Hemoglobin Concent 34.8 g/dl (32-36) Platelet Count 148 K/uL (130-400) Mean Platelet Volume 9.6 fL (7.4-10.4) Neutrophils (%) (Auto) 60.6 % Lymphocytes (%) (Auto) 25.9 % Monocytes (%) (Auto) 11.3 % Eosinophils (%) (Auto) 1.6 % Basophils (%) (Auto) 0.2 % Neutrophils # (Auto) 2.99 K/uL (1.4-6.5) Lymphocytes # (Auto) 1.28 K/uL (1.2-3.4) Monocytes # (Auto) 0.56 K/uL (0.11-0.59) Eosinophils # (Auto) 0.08 K/uL (0-0.5) Basophils # (Auto) 0.01 K/uL (0-0.2) RDW Standard Deviation 40.6 fL (36.4-46.3) RDW Coefficient of Variation 13.7 % (11.5-14.5) Immature Granulocyte % (Auto) 0.4 % Immature Granulocyte # (Auto) 0.02 K/uL (0.00-0.02) Anion Gap 7.0 mmol/L (3-11) Est Creatinine Clear Calc Drug Dose 58.9 ml/min Estimated GFR () 67.4 Estimated GFR (Non- 58.2 BUN/Creatinine Ratio 9.1 (10-20) Calcium Level 7.9 mg/dl (8.5-10.1) Total Bilirubin 0.4 mg/dl (0.2-1) Direct Bilirubin 0.2 mg/dl (0-0.2) Aspartate Amino Transf (AST/SGOT) 39 U/L (15-37) Alanine Aminotransferase (ALT/SGPT) 50 U/L (12-78) Alkaline Phosphatase 138 U/L (45-117) Total Creatine Kinase 127 U/L (39-308) Creatine Kinase MB 1.1 ng/ml (0.5-3.6) Creatine Kinase MB Ratio 0.9 (0-3.0) Troponin I < 0.015 ng/ml (0-0.045) Total Protein 7.5 gm/dl (6.4-8.2) Albumin 3.6 gm/dl (3.4-5.0) Lipase 147 U/L (73-393) Bedside Lactic Acid Venous 1.32 mmol/L (0.90-1.70) Bedside Troponin I < 0.030 ng/ml (0-0.045) Laboratory studies as stated above per my review. Medications Administered Medications (Trade) Dose Ordered Sig/Michael Route Start Time Stop Time Status Last Admin Dose Admin Albuterol/ Ipratropium (Duoneb) 3 ml NOW STAT INH 09/14/17 20:49 09/14/17 20:51 DC 09/14/17 21:10 3 ML Prednisone (PredniSONE TAB) 60 mg NOW STAT PO 09/15/17 01:02 09/15/17 01:05 DC 09/15/17 01:33 60 MG Albuterol (Ventolin Hfa Inhaler) 2 puffs NOW ONCE INH 09/15/17 01:15 09/15/17 01:16 DC 09/15/17 01:34 2 PUFFS Amoxicillin/ Clavulanate Potassium (Augmentin 875MG Home Pack) 1 homepack STK-MED ONCE PO 09/15/17 01:28 09/15/17 01:29 DC 09/15/17 01:34 1 HOMEPACK ECG Per My Interpretation Indication: SOB/dyspnea Rate (beats per minute): 78 Rhythm: normal sinus Findings: no acute ischemic change, no ectopy Comparison ECG Date: April 30 2017 Change: no significant change ED Course 2027: Past medical records reviewed. The patient was evaluated in room B8, and a complete history and physical examination were performed. 2028: I reevaluated the patient, he will receive a nebulizer treatment. 2048: Ordered Albuterol/Ipratropium 3 ml INH 2338: I reevaluated the patient, he appears comfortable. He is currently on O2 and I have ordered a chest CT 0102: Ordered Prednisone 60 mg PO 0115: Ordered Albuterol 2 puffs INH 0138: Upon reevaluation, the patient is resting comfortably. I discussed the results and treatment plan with him. He verbalized agreement of the treatment plan. The patient was discharged home. 0900: Ordered Amoxicillin/Clavulante Potassium 875 mg PO. Medical Decision Differential Diagnosis Include: Influenza, pneumonia, COPD, cardiac disease, CHF , electrolyte or metabolic abnormality. Patient comes in as described above he was diagnosed with influenza A about 4 days ago he has a day left of Tamiflu. He complains of feeling short of breath he has some nasal congestion he looks well on exam. His lungs are slightly rhonchorous but has no significant increased work of breathing is had no chest pain. He has had no fever for 24 hours. He has been keeping up with his fluids. IV access established. EKG, chest x-ray, multiple blood testing was obtained. his chest x-ray shows no acute infiltrate, failure, or pneumothorax seen. EKG shows nothing to suggest acute coronary syndrome or arrhythmia. his cardiac biomarkers not elevated. His symptoms are not likely consistent with cardiac disease. He has no significant electrolyte or metabolic abnormalities. I did a chest CT and there is no evidence of PE. His oxygen at rest on room air was in the low 90s occasionally dip in the high 80s. He did get a albuterol /Atrovent neb did feel a little better. I talked him at length. On the CT of his ches,t he does have emphysematous changes and is possible this is a COPD exacerbation on top of influenza there was also some nodules which could potentially be an early pneumonia , I will put him on antibiotics for this. I did offer him admission but he declines he says he would rather go home. I think this is reasonable. I gave him prednisone 60 mg p.o. here as well as a prescription for the next several days of 50 mg. He is continues inhaler 2 puffs every 4 hours as needed finish the Tamiflu. He is an [id number] decongestant such as Sudafed and return if: worsening of symptoms, any new problems or concerns. He is happy the plan and discharged home. To follow-up with his doctor Saturday for recheck Medication Reconcilliation Current Medication List: was personally reviewed by me Blood Pressure Screening Patient's blood pressure: Elevated blood pressure Blood pressure disposition: Referred to PCP Impression Primary Impression: SOB (shortness of breath) Additional Impressions: COPD exacerbation Influenza Scribe Attestation The scribe's documentation has been prepared under my direction and personally reviewed by me in its entirety. I confirm that the note above accurately reflects all work, treatment, procedures, and medical decision making performed by me. Departure Information Dispostion Home / Self-Care Prescriptions Prednisone (Prednisone) 50 Mg Tab 50 MG PO DAILY, #4 TAB Prov: Chun Lewis M.D. 09/15/17 Amoxicillin & Pot Clavulanate (Augmentin 875-125 mg) 1 Tab Tab 875 MG PO BID for 10 Days, #20 TAB Prov: Chun Lewis M.D. 09/15/17 Referrals Cyril John M.D. (PCP) Forms HOME CARE DOCUMENTATION FORM, IMPORTANT VISIT INFORMATION, WORK / SCHOOL INSTRUCTIONS Patient Instructions My [facility] Additional Instructions Rest. Drink plenty of fluids. Finish your Tamiflu Use Augmentin 875 mg twice a day for 10 daysantibiotic Use steroids/prednisone 50 mg a day for 4 more days Albuterol inhaler 2 puffs every 4 hours as needed Return if: Worsening symptoms, increasing shortness of breath, fever or chills, any new problems or concerns. Problem Qualifiers
[2017-09-14] MEDS ORDERED: ALBUT/IPRATROP 3MG/0.5MG NEB 3 ML VIAL INH STA (20:49)
[2017-09-14] MEDS ORDERED: OSEL12.5 PO (21:05)
[2017-09-14] MEDS ORDERED: BENZ100C84 PO (21:05)
[2017-09-14] MEDS ORDERED: VNTHFA/IN INH (21:05)
[2017-09-14] MEDS ORDERED: PSYL48.59 PO (21:05)
--- NOTE | 2017-09-14 21:17 | DIAGNOSTIC IMAGING REPORT ---
CHEST ONE VIEW PORTABLE CLINICAL HISTORY: CHEST PAIN dyspnea COMPARISON STUDY: 09/10/2017 FINDINGS: The bones soft tissues and hemidiaphragms are normal. The cardiomediastinal silhouette is normal. The lungs are clear. The pulmonary vasculature is normal. IMPRESSION: Negative chest. The above report was generated using voice recognition software. It may contain grammatical, syntax or spelling errors. Electronically signed by: Vic Carpio M.D. 09/14/2017 9:16 PM Dictated Date/Time: 09/14/2017 9:15 PM
[2017-09-14 22:00] LABS: BASO % 0.2 %; BASO ABS # 0.01 K/uL (0-0.2); EOS % 1.6 %; EOS ABS # 0.08 K/uL (0-0.5); HEMATOCRIT 40.2 % (42-52); IG# 0.02 K/uL (0.00-0.02); LYMPH % 25.9 %; LYMPH ABS # 1.28 K/uL (1.2-3.4); MEAN CELL VOLUME 81.4 fL (80-100); MEAN CORPUSCULAR HEMOGLOBIN 28.3 pg (25-34); MEAN CORPUSCULAR HGB CONC 34.8 g/dl (32-36); MEAN PLATELET VOLUME 9.6 fL (7.4-10.4); MONO % 11.3 %; MONO ABS # 0.56 K/uL (0.11-0.59); NEUT % 60.6 %; NEUT ABS # 2.99 K/uL (1.4-6.5); PLATELET COUNT 148 K/uL (130-400); RED CELL DISTRIBUTION WIDTH CV 13.7 % (11.5-14.5); RED CELL DISTRIBUTION WIDTH SD 40.6 fL (36.4-46.3); WHITE BLOOD COUNT 4.94 K/uL (4.8-10.8)
[2017-09-14 22:15] LABS: ALBUMIN 3.6 gm/dl (3.4-5.0); ALT/SGPT 50 U/L (12-78); BLOOD UREA NITROGEN 11 mg/dl (7-18); CALCIUM 7.9 mg/dl (8.5-10.1); CARBON DIOXIDE 27 mmol/L (21-32); CREATININE 1.19 mg/dl (0.60-1.40); GLUCOSE 123 mg/dl (70-99); LIPASE 147 U/L (73-393); POTASSIUM 3.4 mmol/L (3.5-5.1); SODIUM 139 mmol/L (136-145)
[2017-09-14 22:20] LABS: ALKALINE PHOSPHATASE 138 U/L (45-117); AST/SGOT 39 U/L (15-37); CKMB 1.1 ng/ml (0.5-3.6); TOTAL PROTEIN 7.5 gm/dl (6.4-8.2)
[2017-09-14 22:28] VITALS: O2SAT 94
[2017-09-15] MEDS ORDERED: OPTIRAY 320 IV PRN
[2017-09-15] MEDS ORDERED: PRED50TA PO (01:07)
[2017-09-15] MEDS ORDERED: AMOX875T PO (01:07)
[2017-09-15] MEDS ORDERED: ALBUTEROL HFA 8 GM INHALER INH ONE (01:15)
[2017-09-15] MEDS ORDERED: AMOXICIL/CLAVU 875MG HOME PACK PO ONE (01:28)
[2017-09-15 01:40] VITALS: BP 168/78; PULSE 86; O2SAT 91
--- NOTE | 2017-09-15 08:02 | DIAGNOSTIC IMAGING REPORT ---
(CHEST FOR PE) ANGIO WITH CT DOSE: 590.23 mGy.cm HISTORY: 76 years-old Male with acute shortness of breath. TECHNIQUE: Multiple CTA images of the chest were obtained after the intravenous administration of 97 ml Optiray 320. Coronal and sagittal MIPS were obtained from the axial data set and were submitted for review. A dose lowering technique was utilized adhering to the principles of ALARA. COMPARISON: Chest radiograph of same day, CTA chest 12/24/2014. FINDINGS: CTA: Heart is normal in size with trace pericardial effusion. Coronary arterial disease. Moderate atherosclerosis of the thoracic aorta with patency of the imaged great vessels. There is no aortic aneurysm or dissection identified. The pulmonary arterial tree is opacified to level of the subsegmental branches and demonstrates no focal filling defects to suggest pulmonary thromboembolic disease. CT CHEST: Thyroid is homogeneous without dominant nodule. Mildly prominent 1.7 x 1.1 cm left paratracheal lymph node, image 205 of series 4 with mildly enlarged 11 mm subcarinal and right hilar lymph nodes are also present. There is no pneumothorax or pleural effusion. Mild Katya lobular upper lung zone predominant emphysema with associated mild bilateral bronchial wall thickening suggesting bronchitis. Areas of mild subsegmental tree-in-bud nodularity are noted within the lung bases. There is a 5 mm bronchial lesion along the nondependent surface of a bronchoscope within the lateral basal segment right lower lobe, image 124 series 4 which is unchanged from 12/24/2014 suggesting benign etiology. 6 mm solid nodule of the left lower lobe, image 116 series 4 is also unchanged from 2015 study compatible with benign process. Costophrenic granuloma the right upper lobe. No lobar airspace consolidation or overt pulmonary edema. 4 mm solid nodule of the right middle lobe is seen on image 152 of series 4, unchanged. 2 mm nodule of the lingula incidentally noted. Fatty infiltration of the liver. No acute process of the imaged upper abdomen. Soft tissues are unremarkable. Bones appear intact. IMPRESSION: 1. Mild emphysema with bronchitis. No lobar airspace consolidation to suggest pneumonia. 2. Mild subsegmental tree-in-bud nodularity of the lung bases suggests infectious bronchiolitis. 3. Mild mediastinal and right hilar adenopathy, likely reactive. 4. Unchanged 4 mm right middle lobe and 6 mm left lower lobe pulmonary nodules are noted in addition to a 5 mm endobronchial lesion of the right lower lobe. These lesions demonstrate stability dating back to 12/24/2014 study compatible with benign etiology. The above report was generated using voice recognition software. It may contain grammatical, syntax or spelling errors. Electronically signed by: Ac Young M.D. 09/15/2017 8:00 AM Dictated Date/Time: 09/15/2017 7:44 AM
[2017-09-15] MEDS ORDERED: AMOXICILLIN/CLAVULANATE TAB 875 MG TAB PO ONE (09:00)
== END 2017-09-15 01:40 | disposition home or self-care (01) ==
LOC: C.EDB 20:17
DX: R06.02 Shortness of breath (principal); J44.1 Chronic obstructive pulmonary disease with (acute) exacerbation; J10.1 Influenza due to other identified influenza virus with other respiratory manifestations; K21.9 Gastro-esophageal reflux disease without esophagitis; I10 Essential (primary) hypertension; K57.92 Diverticulitis of intestine, part unspecified, without perforation or abscess without bleeding; K27.9 Peptic ulcer, site unspecified, unspecified as acute or chronic, without hemorrhage or perforation; Z82.49 Family history of ischemic heart disease and other diseases of the circulatory system; Z83.3 Family history of diabetes mellitus; Z87.891 Personal history of nicotine dependence; Z79.82 Long term (current) use of aspirin; Z79.899 Other long term (current) drug therapy; Z88.5 Allergy status to narcotic agent

== ENCOUNTER 2017-09-22 10:34 | Emergency (ER) | payer BC, OTHER ==
[~2017-09-22] VITALS: Ht 175.3 cm; Wt 95.8 kg
[~2017-09-22 10:34] MED LIST changes: +AMOX875T PO; -BENZ-54 PO; +BENZ100C84 PO; +PRED50TA PO; +PSYL48.59 PO; +VNTHFA/IN INH
[2017-09-22 10:43] VITALS: TEMP 36.5; Ht 175.3 cm; Wt 95.8 kg
[2017-09-22] MEDS ORDERED: FLUT1INH INH (10:52)
[2017-09-22] MEDS ORDERED: ALBUT/IPRATROP 3MG/0.5MG NEB 3 ML VIAL INH STA (10:58)
[2017-09-22 11:10] VITALS: O2SAT 96
--- NOTE | 2017-09-22 11:14 | DIAGNOSTIC IMAGING REPORT ---
CHEST ONE VIEW PORTABLE CLINICAL HISTORY: 76 years-old Male presenting with sob. TECHNIQUE: Portable upright AP view of the chest was obtained. COMPARISON: 09/14/2017. FINDINGS: Atherosclerosis of the aortic arch. Cardiac silhouette top normal in size. No focal opacity. No large effusion or pneumothorax. Degenerative changes of the right shoulder. IMPRESSION: 1. No acute cardiopulmonary disease. Electronically signed by: Patrick Choi M.D. 09/22/2017 11:13 AM Dictated Date/Time: 09/22/2017 11:12 AM
[2017-09-22 11:25] LABS: HEMATOCRIT 40.6 % (42-52); HEMOGLOBIN 14.4 g/dL (14.0-18.0); MEAN CELL VOLUME 82.4 fL (80-100); MEAN CORPUSCULAR HEMOGLOBIN 29.2 pg (25-34); MEAN CORPUSCULAR HGB CONC 35.5 g/dl (32-36); MEAN PLATELET VOLUME 9.2 fL (7.4-10.4); PLATELET COUNT 188 K/uL (130-400); RED CELL DISTRIBUTION WIDTH CV 13.6 % (11.5-14.5); RED CELL DISTRIBUTION WIDTH SD 40.9 fL (36.4-46.3); WHITE BLOOD COUNT 12.72 K/uL (4.8-10.8)
[2017-09-22 11:38] LABS: ALBUMIN 3.4 gm/dl (3.4-5.0); ALT/SGPT 89 U/L (12-78); BLOOD UREA NITROGEN 16 mg/dl (7-18); CALCIUM 8.1 mg/dl (8.5-10.1); CARBON DIOXIDE 27 mmol/L (21-32); CREATININE 1.13 mg/dl (0.60-1.40); GLUCOSE 108 mg/dl (70-99); POTASSIUM 3.9 mmol/L (3.5-5.1); SODIUM 138 mmol/L (136-145)
[2017-09-22 11:40] LABS: PTT PATIENT 23.8 SECONDS (21.0-31.0)
[2017-09-22 11:43] LABS: ALKALINE PHOSPHATASE 123 U/L (45-117); AST/SGOT 33 U/L (15-37); TOTAL PROTEIN 6.8 gm/dl (6.4-8.2)
[2017-09-22 11:46] LABS: BASO % 0.2 %; BASO ABS # 0.02 K/uL (0-0.2); EOS % 1.2 %; EOS ABS # 0.15 K/uL (0-0.5); IG# 0.27 K/uL (0.00-0.02); LYMPH % 12.3 %; LYMPH ABS # 1.56 K/uL (1.2-3.4); MONO % 8.5 %; MONO ABS # 1.08 K/uL (0.11-0.59); NEUT % 75.7 %; NEUT ABS # 9.64 K/uL (1.4-6.5)
--- NOTE | 2017-09-22 12:31 | EMERGENCY ROOM VISIT NOTE ---
History Report prepared by Juno: Ervin Barrera Under the Supervision of: Dr. Luis F Agudelo D.O. First contact with patient: 10:41 Chief Complaint: SHORTNESS OF BREATH Stated Complaint: SHORT OF BREATH Nursing Triage Summary: pt reports has ongoing cough, congestion and sinus inf. X 2 weeks was given RX for abx took 5 days and stopped because " it tears up my stomach" History of Present Illness The patient is a 76 year old male who presents to the Emergency Room with complaints of constant shortness of breath beginning two weeks ago. He currently rates his discomfort a 4/10 in severity. The patient states he developed his shortness of breath two weeks, and he does not know the source. The patient notes he had a chest x-ray that showed upper chest congestion. He reports he was taking amoxicillin for five days and had to stop because it caused a large amount of stomach discomfort, bleeding, and diarrhea. The patient notes he has a history of stomach ulcers. He states he was fishing and was exposed to ticks recently. He denies joint pain, joint swelling, rashes, and any other complaints. Source of History: patient Onset: two weeks ago Symptom Intensity: 4/10 Quality: other (SOB) Timing: constant Associated Symptoms: + diarrhea, No rash Note: Associated symptoms: stomach discomfort and bleeding Denies: joint swelling or joint pain Review of Systems See HPI for pertinent positives & negatives. A total of 10 systems reviewed and were otherwise negative. Past Medical & Surgical Medical Problems: (1) Colectomy (2) Colonoscopy (3) Diverticulitis (4) EGD (5) Expressive aphasia (6) Gastroesophageal reflux disease (7) HTN (hypertension) (8) PERSONAL HISTORY OF PEPTIC ULCER DISEASE Family History Cardiovascular disease Diabetes mellitus Heart disease Social History Smoking Status: Former Smoker Alcohol Use: none Drug Use: none Marital Status: Housing Status: lives with significant other Occupation Status: retired Current/Historical Medications Scheduled Allopurinol (Allopurinol), 100 MG PO DAILY Amlodipine (Norvasc), 5 MG PO PM Aspirin (Aspirin Ec), 81 MG PO QAM Atenolol (Tenormin), 100 MG PO BID Fluticasone Furoate-Vilanterol (Breo Ellipta), 1 PUFF INH DAILY Lisinopril (Zestril), 20 MG PO QAM Magnesium Oxide (Mg Supplement (Magnesium Oxide), 400 MG PO BID Omeprazole (Prilosec), 20 MG PO BID Psyllium (Metamucil), 1 TBS PO BID Simvastatin (Zocor), 20 MG PO QPM Scheduled PRN Benzonatate (Tessalon Perles), 100 MG PO TID PRN for Cough Allergies Coded Allergies: Codeine (Verified Adverse Reaction, Intermediate, SICK IN STOMACH, 09/14/17 ) Morphine and Related (Verified Adverse Reaction, Intermediate, nausea, ) Amoxicillin (Unverified Adverse Reaction, Unknown, BURNING IN STOMACH, ) Clavulanic Acid (Unverified Adverse Reaction, Unknown, BURNING IN STOMACH , 09/22/17) Uncoded Allergies: UNKNOWN B/P MED (Allergy, Unknown, "SEVERE NAIDU", 09/14/17) Physical Exam Vital Signs Date Time Temp Pulse Resp B/P (MAP) Pulse Ox O2 Delivery O2 Flow Rate FiO2 09/22/17 12:14 74 18 128/67 97 Room Air 09/22/17 12:09 76 09/22/17 11:10 96 Room Air 09/22/17 10:43 36.5 73 20 172/71 96 Room Air Physical Exam CONSTITUTIONAL/VITAL SIGNS: Reviewed / noted above. GENERAL: Non-toxic in appearance. INTEGUMENTARY: Warm, dry, and Scurry. HEAD: Normocephalic. EYES: without scleral icterus or trauma. ENT/OROPHARYNX: clear and moist. LYMPHADENOPATHY/NECK: Is supple without lymphadenopathy or meningismus. RESPIRATORY: Lungs clear and equal. CARDIOVASCULAR: Regular rate and rhythm. GI/ABDOMEN: Soft and nontender. No organomegaly or pulsatile mass. No rebound or guarding. Normal bowel sounds. EXTREMITIES: Warm and well perfused. BACK: No CVA tenderness. NEUROLOGICAL: Intact without focal deficits. PSYCHIATRIC: normal affect. MUSCULOSKELETAL: Normally developed with good muscle tone. Medical Decision & Procedures ER Provider Diagnostic Interpretation: X ray results and stated below per my interpretation and radiology interpretation. CHEST ONE VIEW PORTABLE CLINICAL HISTORY: 76 years-old Male presenting with sob. TECHNIQUE: Portable upright AP view of the chest was obtained. COMPARISON: 09/14/2017. FINDINGS: Atherosclerosis of the aortic arch. Cardiac silhouette top normal in size. No focal opacity. No large effusion or pneumothorax. Degenerative changes of the right shoulder. IMPRESSION: 1. No acute cardiopulmonary disease. Electronically signed by: Patrick Choi M.D. 09/22/2017 11:13 AM Dictated Date/Time: 09/22/2017 11:12 AM Laboratory Results 09/22/17 11:05 Red Blood Count 4.93, Mean Corpuscular Volume 82.4, Mean Corpuscular Hemoglobin 29.2, Mean Corpuscular Hemoglobin Concent 35.5, Mean Platelet Volume 9.2, Neutrophils (%) (Auto) 75.7, Lymphocytes (%) (Auto) 12.3, Monocytes (%) (Auto) 8.5, Eosinophils (%) (Auto) 1.2, Basophils (%) (Auto) 0.2, Neutrophils # (Auto) 9.64, Lymphocytes # (Auto) 1.56, Monocytes # (Auto) 1.08, Eosinophils # (Auto) 0.15, Basophils # (Auto) 0.02 09/22/17 11:05 Test 09/22/17 11:05 White Blood Count 12.72 K/uL (4.8-10.8) Red Blood Count 4.93 M/uL (4.7-6.1) Hemoglobin 14.4 g/dL (14.0-18.0) Hematocrit 40.6 % (42-52) Mean Corpuscular Volume 82.4 fL (80-100) Mean Corpuscular Hemoglobin 29.2 pg (25-34) Mean Corpuscular Hemoglobin Concent 35.5 g/dl (32-36) Platelet Count 188 K/uL (130-400) Mean Platelet Volume 9.2 fL (7.4-10.4) Neutrophils (%) (Auto) 75.7 % Lymphocytes (%) (Auto) 12.3 % Monocytes (%) (Auto) 8.5 % Eosinophils (%) (Auto) 1.2 % Basophils (%) (Auto) 0.2 % Neutrophils # (Auto) 9.64 K/uL (1.4-6.5) Lymphocytes # (Auto) 1.56 K/uL (1.2-3.4) Monocytes # (Auto) 1.08 K/uL (0.11-0.59) Eosinophils # (Auto) 0.15 K/uL (0-0.5) Basophils # (Auto) 0.02 K/uL (0-0.2) RDW Standard Deviation 40.9 fL (36.4-46.3) RDW Coefficient of Variation 13.6 % (11.5-14.5) Immature Granulocyte % (Auto) 2.1 % Immature Granulocyte # (Auto) 0.27 K/uL (0.00-0.02) Hypersegmented Polys OCCASIONAL Prothrombin Time 10.4 SECONDS (9.0-12.0) Prothromb Time International Ratio 1.0 (0.9-1.1) Activated Partial Thromboplast Time 23.8 SECONDS (21.0-31.0) Partial Thromboplastin Ratio 0.9 Anion Gap 10.0 mmol/L (3-11) Est Creatinine Clear Calc Drug Dose 61.5 ml/min Estimated GFR () 71.8 Estimated GFR (Non- 61.9 BUN/Creatinine Ratio 14.3 (10-20) Calcium Level 8.1 mg/dl (8.5-10.1) Total Bilirubin 0.8 mg/dl (0.2-1) Aspartate Amino Transf (AST/SGOT) 33 U/L (15-37) Alanine Aminotransferase (ALT/SGPT) 89 U/L (12-78) Alkaline Phosphatase 123 U/L (45-117) Total Creatine Kinase 47 U/L (39-308) Creatine Kinase MB 1.0 ng/ml (0.5-3.6) Creatine Kinase MB Ratio 2.1 (0-3.0) Troponin I < 0.015 ng/ml (0-0.045) Total Protein 6.8 gm/dl (6.4-8.2) Albumin 3.4 gm/dl (3.4-5.0) Globulin 3.4 gm/dl (2.5-4.0) Albumin/Globulin Ratio 1.0 (0.9-2) Lyme Disease IgM Antibody NEG (NEG) Laboratory results as stated above per my review. Medications Administered Medications (Trade) Dose Ordered Sig/Michael Route Start Time Stop Time Status Last Admin Dose Admin Albuterol/ Ipratropium (Duoneb) 3 ml NOW STAT INH 09/22/17 10:58 09/22/17 10:59 DC 09/22/17 11:11 3 ML ECG Per My Interpretation Indication: SOB/dyspnea Rate (beats per minute): 72 Rhythm: normal sinus Findings: no ectopy, other (No ST elevation) ED Course 1052: Previous medical records were reviewed. The patient was evaluated in room B07. A complete history and physical examination was performed. 1058: Ordered Albuterol/Ipratropium 3ml INH 1231: On reevaluation, the patient is resting comfortably. I discussed the results and findings with the patient. He verbalized agreement of the treatment plan. The patient was discharged home. Medical Decision the differential was considered includes acute myocardial infarction, acute coronary syndrome, myocarditis, pericarditis, pericardial effusions /tamponad, esophageal perforation, pulmonary embolism, pneumonia, pneumothorax, cardiomyopathy, congestive heart, anemia , COPD/asthma exacerbation. This is a 68-year-old male who presents to the ED with a chief complaint of shortness of breath. Patient states that he has been having treat breathing trouble for the past couple weeks. He states that he is seen his doctor and was placed on Augmentin. He developed diarrhea because of the Augmentin and subsequently stopped this after about 6-7 days. He has no other specific complaints. His physical exam reveals some mild hypertension. His exam is otherwise unremarkable. He is in no distress. His pulse ox was 95-98% on room air. The lungs are clear on exam. His EKG shows a normal sinus rhythm at a rate of 72. His white blood cell count was slightly elevated at 12.7. Complete metabolic panel was unremarkable and troponin was negative. Chest x- ray was negative for acute disease. The patient was concerned about Lyme disease and this test was also negative. The patient was told the results of the test. He is felt to be stable for discharge and outpatient follow-up. He was given a DuoNeb treatment here to see if this would help although his lungs were clear initially. Medication Reconcilliation Current Medication List: was personally reviewed by me Blood Pressure Screening Patient's blood pressure: Normal blood pressure Blood pressure disposition: Did not require urgent referral Impression Primary Impression: Dyspnea Scribe Attestation The scribe's documentation has been prepared under my direction and personally reviewed by me in its entirety. I confirm that the note above accurately reflects all work, treatment, procedures, and medical decision making performed by me. Departure Information Dispostion Home / Self-Care Referrals Cyril John M.D. (PCP) Forms HOME CARE DOCUMENTATION FORM, IMPORTANT VISIT INFORMATION Patient Instructions My [facility] Additional Instructions Test results today did not show any significant pulmonary issues. Your Lyme test was negative. Cardiac tests were also normal. Follow-up with your doctor for further care and evaluation in 1-2 days. Return to the emergency department for worsening or new symptoms or any concerns. You have been examined and treated today on an emergency basis only. This is not a substitute for, or an effort to provide, complete comprehensive medical care. It is impossible to recognize and treat all injuries or illnesses in a single emergency department visit. It is therefore important that you follow up closely with your doctor. Call as soon as possible for an appointment.
[2017-09-22 12:54] VITALS: BP 128/67; PULSE 70; O2SAT 96
== END 2017-09-22 12:55 | disposition home or self-care (01) ==
LOC: C.EDB 10:36
DX: R06.00 Dyspnea, unspecified (principal); D72.829 Elevated white blood cell count, unspecified; I10 Essential (primary) hypertension; K21.9 Gastro-esophageal reflux disease without esophagitis; Z87.891 Personal history of nicotine dependence; Z79.82 Long term (current) use of aspirin; Z79.51 Long term (current) use of inhaled steroids; Z88.6 Allergy status to analgesic agent; Z88.0 Allergy status to penicillin; Z82.49 Family history of ischemic heart disease and other diseases of the circulatory system; Z83.3 Family history of diabetes mellitus

== ENCOUNTER → 2017-10-04 | Outpatient (CLI) | payer BC, OTHER ==
[~2017-10-04] MED LIST changes: -AMOX875T PO; +FLUT1INH INH; -OSEL12.5 PO; -PRED50TA PO; -VNTHFA/IN INH
--- NOTE | 2017-10-04 10:35 | DIAGNOSTIC IMAGING REPORT ---
KUB HISTORY: Generalized abdominal pain. Constipation. COMPARISON: Chest and abdominal series 07/03/2016. FINDINGS: The bowel gas pattern is unremarkable. There are no dilated loops of small bowel to suggest an obstruction. No renal calculi. No ureteral calculi. Calcifications in the deep pelvis likely represent phleboliths. No pneumoperitoneum or pneumatosis. Cholecystectomy. IMPRESSION: Unremarkable bowel gas pattern. No evidence for bowel obstruction. No significant stool to suggest constipation. Electronically signed by: Too Boo M.D. 10/04/2017 10:33 AM Dictated Date/Time: 10/04/2017 10:32 AM
== END | disposition home or self-care (01) ==
LOC: C.RADPV 10:12
PROVIDERS: ATTEND Family Medicine
DX: R10.9 Unspecified abdominal pain (principal); K59.00 Constipation, unspecified

== ENCOUNTER → 2017-10-09 | Outpatient (CLI) | payer BC, OTHER ==
--- NOTE | 2017-10-09 11:04 | DIAGNOSTIC IMAGING REPORT ---
ABDOMINAL ULTRASOUND COMPLETE HISTORY: Generalized abdominal pain.. COMPARISON: Abdominal ultrasound 12/23/2014. FINDINGS: Pancreas: The pancreatic tail is obscured by overlying bowel gas. The remaining portions of the pancreas are within normal limits. Liver: The liver is echogenic consistent with fatty change. 2.1 x 1.8 x 1.2 cm hypoechoic area seen anteriorly within the liver. This is indeterminate but favors focal fatty sparing. Gallbladder: The gallbladder is surgically absent. CBD: 5 mm. Kidneys: No hydronephrosis. A 1.2 cm parapelvic cyst within the right kidney. Spleen: Mildly enlarged measuring 13.3 cm in length. Aorta: Normal in caliber. IVC: Patent. IMPRESSION: 1. Cholecystectomy. 2. Hepatic steatosis. A 2.1 x 1.8 x 1.2 cm hypoechoic area within the anterior aspect of the liver. This is indeterminate but favors focal fatty sparing. 3. Mild splenomegaly. Electronically signed by: Too Boo M.D. 10/09/2017 11:02 AM Dictated Date/Time: 10/09/2017 10:59 AM
== END | disposition home or self-care (01) ==
LOC: C.ULTR 10:05
PROVIDERS: ATTEND Family Medicine
DX: R10.9 Unspecified abdominal pain (principal); K76.0 Fatty (change of) liver, not elsewhere classified; R16.1 Splenomegaly, not elsewhere classified

== ENCOUNTER → 2017-10-18 | Outpatient (CLI) | payer BC ==
--- NOTE | 2017-10-18 08:22 | DIAGNOSTIC IMAGING REPORT ---
CHEST 2 VIEWS ROUTINE CLINICAL HISTORY: 76 years-old Male presenting with PULMONARY NODULES. TECHNIQUE: PA and lateral views of the chest were obtained. COMPARISON: 09/22/2017. FINDINGS: Atherosclerosis of the aortic arch. Cardiac silhouette normal in size. Lungs and pleural spaces clear. Degenerative changes of the thoracic spine. Cholecystectomy clips noted. IMPRESSION: 1. No acute cardiopulmonary disease. Sensitivity of radiography for pulmonary nodules is extremely limited. If there is clinical concern for nodules, chest CT should be obtained. Electronically signed by: Patrick Choi M.D. 10/18/2017 8:20 AM Dictated Date/Time: 10/18/2017 8:19 AM
== END | disposition home or self-care (01) ==
LOC: C.RADPV 07:34
PROVIDERS: ATTEND Family Medicine
DX: R91.8 Other nonspecific abnormal finding of lung field (principal)

== ENCOUNTER → 2018-02-07 | Outpatient (CLI) | payer OTHER, BC ==
[~2018-02-07] MED LIST changes: -AMLO-110 PO; +AMLO5TAB3 PO
[2018-02-07 13:09] LABS: HEMOGLOBIN A1C 5.3 % (4.5-5.6)
[2018-02-07 13:31] LABS: ALBUMIN 3.8 gm/dl (3.4-5.0); ALKALINE PHOSPHATASE 157 U/L (45-117); ALT/SGPT 52 U/L (12-78); AST/SGOT 34 U/L (15-37); BLOOD UREA NITROGEN 13 mg/dl (7-18); CALCIUM 8.5 mg/dl (8.5-10.1); CARBON DIOXIDE 22 mmol/L (21-32); CHOLESTEROL 94 mg/dl (0-200); CREATININE 1.36 mg/dl (0.60-1.40); GLUCOSE 108 mg/dl (70-99); LDL CHOLESTEROL CALCULATED 33 mg/dl; POTASSIUM 4.4 mmol/L (3.5-5.1); SODIUM 138 mmol/L (136-145); TOTAL PROTEIN 7.3 gm/dl (6.4-8.2); URIC ACID 7.5 mg/dl (2.6-7.2)
== END | disposition home or self-care (01) ==
LOC: C.LABPVFM 07:45
PROVIDERS: ATTEND Family Medicine
DX: E78.5 Hyperlipidemia, unspecified (principal); I10 Essential (primary) hypertension; R73.9 Hyperglycemia, unspecified; K22.70 Barrett's esophagus without dysplasia; M10.9 Gout, unspecified

== ENCOUNTER 2019-12-01 08:26 | Inpatient (IN) ==
[2019-12-01] MEDS ORDERED: ALBUTEROL HFA 8 GM INHALER INH ONE (08:38)
[2019-12-01] MEDS ORDERED: ACETAMINOPHEN 1,000 MG/100 ML VIAL IV STA (08:38)
--- NOTE | 2019-12-01 08:53 | Emergency Department Note ---
History of Present Illness General Chief complaint: Shortness of Breath/Dyspnea Time Seen by Provider: 12/01/19 08:27 Source: patient, EMS, RN notes reviewed and old records reviewed Mode of arrival: EMS Limitations: no limitations History of Present Illness Provider complaint: rigors, cough, sore throat Onset (ago): day(s) 1 Location: chest Radiation: non-radiation Current Pain Intensity: 0 Associated symptoms: + cough, + fever/chills and + headaches; no chest pain, no malaise, no nausea/vomiting, no rash, no seizure, no shortness of breath and no weakness Treatments prior to arrival: none This is an 79-year-old male who presents the emergency department complaining of cough along with shaking. Patient has been out and about and is concerned he has been exposed to the virus though he denies any recent virus contact. He reports he has never felt like this before. He denies chest pain as well as abdominal pain. He has taken Coricidin for his symptoms. The patient called EMS this morning who brought the patient to the emergency department and started an IV. Home Medications Home Medications Medication Instructions Recorded Confirmed Type aspirin 81 mg PO DAILY 11/25/18 12/01/19 History magnesium oxide 400 mg PO BID 11/25/18 12/01/19 History amlodipine 5 mg tablet 5 mg PO DAILY #90 tab 08/24/19 12/01/19 Rx atenolol 100 mg tablet 100 mg PO BID #180 tab 11/17/19 12/01/19 Rx allopurinol 200 mg PO DAILY 12/01/19 12/01/19 History lisinopril 20 mg PO DAILY 12/01/19 12/01/19 History omeprazole 20 mg PO BID 12/01/19 12/01/19 History simvastatin 20 mg PO DAILY 12/01/19 12/01/19 History Allergies Allergy/AdvReac Type Severity Reaction Status Date / Time valsartan [From Cha] Allergy Severe Verified 12/01/19 08:48 Penicillins Allergy Unknown Verified 12/01/19 08:48 codeine AdvReac Intermediate SICK IN Verified 12/01/19 08:48 STOMACH morphine AdvReac Intermediate nausea Verified 12/01/19 08:48 amoxicillin AdvReac Unknown BURNING IN Unverified 12/01/19 08:48 STOMACH clavulanic acid AdvReac Unknown BURNING IN Unverified 12/01/19 08:48 STOMACH Past Med/Surg History Medical History (Updated 12/03/19 @ 07:23 by Luis F Parham MD) Abdominal pain (Resolved) Abdominal pain Allergic rhinitis (Acute) Anemia (Acute) Anxiety (Acute) Barretts esophagus (Acute) Chest pain (Resolved) Cholecystitis (Resolved) Chronic constipation COPD, mild (Acute) Dizziness (Resolved) Expressive aphasia (Resolved) Gastroesophageal reflux disease (Acute 09/14/12) Gout History of diverticulitis of colon HTN (hypertension) (Chronic) Hyperlipidemia (Acute) Hypomagnesemia (Chronic) Lumbar canal stenosis Nonalcoholic fatty liver disease (Acute) Pulmonary nodules (Acute) Syncope (Resolved) Vitamin B12 deficiency (Acute) Surgical History History of ankle surgery History of partial colectomy History of surgical procedure on eye proper using laser Hx of appendectomy Hx of cholecystectomy Hx of hernia repair Family History Brother Cancer kidney Hypertension Heart disease Atrial fibrillation Brother Biliary cirrhosis Diabetes Liver transplant recipient Other Family history non-contributory Denies family history of Ovarian cancer Prostate cancer Myocardial infarction Breast cancer Colorectal cancer Social History Preferred Language: Frisian Communication Ability: Effective Beliefs That Will Affect Care: None marital status: Current Living Situation: Spouse current occupational status: retired Feels Safe at Home: Yes Smoking Status: Former smoker Tobacco Type: cigarettes ; Number of Years Since Quit: 20 ; Hx Alcohol Use: Yes Alcohol type: beer Hx Substance Use: No caffeine: Yes Dental Care, Regularly: No Physical Activity Frequency: 1-2 Times per Week Seatbelt Use: always Sunscreen Use: Yes Review of Systems A total of 10 systems reviewed and were otherwise negative Physical Exam VITAL SIGNS - Vital signs and nursing notes were reviewed. GENERAL - 79-year-old male appearing ill with rigors. Communicates well with provider and answers questions appropriately. Patient has no evidence of meningitis or encephalitis on physical examination SKIN - Without rashes. HEAD - NC/AT. EYES - PERRL with EOMI bilaterally. Sclera anicteric. Palpebral conjunctiva pink and moist with no injection noted. EARS - No deformities of external structures noted on gross examination bilaterally. No pain elicited with palpation of the tragus bilaterally. External auditory canals without discharge or otorrhea. Tympanic membranes pearly maciel without retraction or bulging. No fluid or purulent material visualized behind the TM. Handle of malleus, umbo, cone of light, pars tensa/flaccid all easily visualized. NOSE - Midline and without cyanosis. No epistaxis or purulent drainage noted. Septum midline without deviation or septal hematoma noted. MOUTH/OROPHARYNX - Without perioral cyanosis. Buccal mucosa pink and moist and without leukoplakia. Tongue midline with equal elevation of palate bilaterally. No tonsillar hypertrophy, erythema, or exudates noted. dentition noted. NECK - Neck with FROM. Supple to palpation. lymphadenopathy noted. No nuchal rigidity. LUNGS - Chest wall symmetric without accessory muscle use, intercostals retractions, or central cyanosis. Normal vesicular breath sounds CTA B/L. No wheezes, rales, or rhonchi appreciated. CARDIAC - RRR with S1/S2. No murmur, rubs, or gallops appreciated. ABDOMEN - Abdominal contour without pulsations or visible masses. BS normoactive all four quadrants. No tenderness, palpable masses, h epatosplenomegaly, or ascites noted. EXTREMITIES - No clubbing or peripheral cyanosis. No pretibial edema present. +3/5 radial, posterior tibial, and dorsalis pedis pulses palpated throughout. +5/5 strength noted in UE/LE bilaterally. NEUROLOGIC - Cranial nerves II through XII grossly intact. Sensory intact to light touch throughout. Patellar reflexes +2/4. PSYCH - A&Ox3 and cooperates fully with examiner. Pt is very pleasant and interacts well with examiner. Course Administered Medications Acetaminophen (Tylenol) 650 mg PO Q4H PRN PRN Reason: Pain or Fever Stop: 12/31/19 14:56 Last Admin: 12/02/19 20:56 Dose: 650 mg Documented by: [id number] Albuterol (Duoneb) 3 ml NEB QIDR [facility] Stop: 12/31/19 14:59 Last Admin: 12/02/19 19:08 Dose: 3 ml Documented by: [id number] Admin: 12/02/19 15:06 Dose: 3 ml Documented by: [id number] Admin: 12/02/19 10:46 Dose: 3 ml Documented by: [id number] Admin: 12/02/19 07:10 Dose: 3 ml Documented by: [id number] Admin: 12/01/19 19:22 Dose: 3 ml Documented by: [id number] Admin: 12/01/19 15:37 Dose: 3 ml Documented by: [id number] Allopurinol (Zyloprim) 200 mg PO DAILY [facility] Stop: 01/01/20 08:59 Last Admin: 12/02/19 08:33 Dose: 200 mg Documented by: [id number] Amlodipine Besylate (Norvasc) 5 mg PO DAILY [facility] Stop: 01/01/20 08:59 Last Admin: 12/02/19 08:32 Dose: 5 mg Documented by: [id number] Aspirin (Ecotrin Ectab) 81 mg PO DAILY [facility] Stop: 01/01/20 08:59 Last Admin: 12/02/19 09:01 Dose: 81 mg Documented by: [id number] Atenolol (Tenormin) 100 mg PO BID [facility] Stop: 12/31/19 20:59 Last Admin: 12/02/19 20:54 Dose: 100 mg Documented by: [id number] Admin: 12/02/19 08:33 Dose: 100 mg Documented by: [id number] Admin: 12/01/19 20:24 Dose: 100 mg Documented by: [id number] Azithromycin (Zithromax) 250 mg PO QAM [facility] Stop: 12/09/19 08:59 Last Admin: 12/02/19 08:32 Dose: 250 mg Documented by: [id number] Enoxaparin Sodium (Lovenox) 40 mg SQ Q24H [facility] Stop: 12/31/19 15:59 Last Admin: 12/02/19 15:57 Dose: 40 mg Documented by: [id number] Admin: 12/01/19 16:41 Dose: 40 mg Documented by: [id number] Ceftriaxone Sodium 1,000 mg/ (Dextrose) 50 mls @ 100 mls/hr IV Q24H [facility]; Protocol Stop: 12/08/19 15:59 Last Infusion: 12/02/19 16:39 Dose: 0 mls/hr Documented by: [id number] Admin: 12/02/19 15:57 Dose: 100 mls/hr Documented by: [id number] Infusion: 12/01/19 17:15 Dose: 0 mls/hr Documented by: [id number] Admin: 12/01/19 16:40 Dose: 100 mls/hr Documented by: [id number] Lisinopril (Zestril) 20 mg PO DAILY [facility] Stop: 01/01/20 08:59 Last Admin: 12/02/19 08:32 Dose: 20 mg Documented by: [id number] Lorazepam (Ativan) 0.5 mg PO HS PRN PRN Reason: Insomnia Stop: 12/31/19 14:56 Last Admin: 12/01/19 20:20 Dose: 0.5 mg Documented by: [id number] Magnesium Oxide (Mag-Ox) 400 mg PO BID [facility] Stop: 12/31/19 20:59 Last Admin: 12/02/19 20:55 Dose: 400 mg Documented by: [id number] Admin: 12/02/19 08:33 Dose: 400 mg Documented by: [id number] Admin: 12/01/19 20:24 Dose: 400 mg Documented by: [id number] Methylcellulose (Citrucel) 2 gm PO DAILY [facility] Stop: 01/01/20 08:59 Last Admin: 12/02/19 08:32 Dose: 2 gm Documented by: [id number] Pantoprazole Sodium (Protonix) 40 mg PO BID [facility] Stop: 12/31/19 20:59 Last Admin: 12/02/19 20:54 Dose: 40 mg Documented by: [id number] Admin: 12/02/19 08:32 Dose: 40 mg Documented by: [id number] Admin: 12/01/19 20:23 Dose: 40 mg Documented by: [id number] Polyethylene Glycol (Miralax Powder Packet) 17 gm PO DAILY [facility] Stop: 01/01/20 08:59 Last Admin: 12/02/19 08:31 Dose: 17 gm Documented by: [id number] Simvastatin (Zocor) 20 mg PO HS [facility] Stop: 12/31/19 20:59 Last Admin: 12/02/19 20:54 Dose: 20 mg Documented by: [id number] Admin: 12/01/19 20:23 Dose: 20 mg Documented by: [id number] Discontinued Medications Albuterol (Ventolin Hfa) 2 puffs INH NOW ONE Stop: 12/01/19 08:39 Last Admin: 12/01/19 08:51 Dose: 2 puffs Documented by: [id number] Acetaminophen (Ofirmev) 1,000 mg in 100 mls @ 400 mls/hr IV NOW STA Stop: 06/02/20 08:52 Last Infusion: 12/01/19 09:16 Dose: 0 mls/hr Documented by: [id number] Admin: 12/01/19 08:51 Dose: 400 mls/hr Documented by: [id number] Cefepime HCl (Maxipime) 2,000 mg in 20 mls @ 5 mls/min IV NOW STA Stop: 12/01/19 09:52 Last Admin: 12/01/19 10:10 Dose: 5 mls/min Documented by: [id number] Levofloxacin/Dextrose (Levaquin/D5w) 750 mg in 150 mls @ 100 mls/hr IV NOW STA Stop: 12/01/19 11:18 Last Infusion: 12/01/19 11:47 Dose: 0 mls/hr Documented by: [id number] Admin: 12/01/19 10:10 Dose: 100 mls/hr Documented by: [id number] Sodium Chloride (Nss 1000ml) 1,000 mls @ 75 mls/hr IV .[id number] [facility] Stop: 12/02/19 04:16 Last Infusion: 12/02/19 05:18 Dose: 0 mls/hr Documented by: [id number] Admin: 12/01/19 16:39 Dose: 75 mls/hr Documented by: [id number] Critical Care Time I have personally spent greater than 30 minutes of critical care time in the direct management of this patient. This includes bedside care, interpretation of diagnostic studies, and testing, discussion with consultants, patient, and family members, and other required patient management activities. This 30 minutes is in excess of all separately billable procedures. Medical Decision Making Differential Diagnosis Viral syndrome, otitis, pharyngitis, pneumonia, influenza, meningitis, urinary tract infection, sepsis, bacteremia, as well as other pathologies. Medical Records Attestation: I reviewed the patient's medical records. Home Medications Current Medication List: was personally reviewed by me Laboratory Data Attestation: I reviewed the patient's lab results. Result diagrams: 12/02/19 07:36 12/02/19 07:36 Lab Results 12/01/19 12/01/19 12/01/19 Range/Units 08:37 08:37 08:37 WBC 15.22 H (4.8-10.8) K/uL RBC 5.24 (4.7-6.1) M/uL Hgb 15.0 (14.0-18.0) g/dL Hct 44.5 (42-52) % MCV 84.9 (80-100) fL MCH 28.6 (25-34) pg MCHC 33.7 (32-36) g/dL RDW Std Deviation 43.2 (36.4-46.3) fL RDW Coeff of Ruben 14.1 (11.5-14.5) % Plt Count 166 (130-400) K/uL MPV 10.2 (7.4-10.4) fL Immature Gran % (Auto) 0.3 % Neut % (Auto) 90.4 % Lymph % (Auto) 4.1 % [place] % (Auto) 4.7 % Eos % (Auto) 0.3 % Baso % (Auto) 0.2 % Immature Gran # (Auto) 0.04 H (0.00-0.02) K/uL Neut # (Auto) 13.75 H (1.4-6.5) K/uL Lymph # (Auto) 0.63 L (1.2-3.4) K/uL [place] # (Auto) 0.72 H (0.11-0.59) K/uL Eos # (Auto) 0.05 (0-0.5) K/uL Baso # (Auto) 0.03 (0-0.2) K/uL ESR 16 H (0-14) mm/hr PT 10.9 (9.0-12.0) Seconds INR 1.0 (0.9-1.1) APTT 25.8 (21.0-31.0) Seconds PTT Ratio 0.9 Sodium (136-145) mmol/L Potassium (3.5-5.1) mmol/L Chloride (98-107) mmol/L Carbon Dioxide (21-32) mmol/L Anion Gap (3-11) BUN (7-18) mg/dl Creatinine (0.6-1.4) mg/dl Est Cr Clr Drug Dosing ml/min Est GFR ( Amer) Est GFR (Non-Af Amer) BUN/Creatinine Ratio (10-20) Glucose (70-99) mg/dl Lactate (0.4-2.0) mmol/L Calcium (8.5-10.1) mg/dl Magnesium (1.8-2.4) mg/dl Ferritin (8-388) ng/ml Total Bilirubin (0.2-1) mg/dl AST (15-37) U/L ALT (12-78) U/L Alkaline Phosphatase (45-117) U/L Lactate Dehydrogenase (87-241) U/L Total Creatine Kinase (39-308) U/L CK-MB (CK-2) (0.5-3.6) ng/ml CK/CKMB % Calc (0-3.0) Troponin I (0-0.045) ng/ml C-Reactive Protein (0-0.29) mg/dl Total Protein (6.4-8.2) gm/dl Albumin (3.4-5.0) gm/dl Globulin (2.5-4.0) gm/dl Albumin/Globulin Ratio (0.9-2) Procalcitonin (0-0.5) ng/ml Urine Color Urine Appearance (Clear) Urine pH (4.5-7.5) Ur Specific [place] (1.000-1.030) Urine Protein (Negative) Urine Glucose (UA) (Negative) Urine Ketones (Negative) Urine Blood (Negative) Urine Nitrite (Negative) Urine Bilirubin (Negative) Urine Urobilinogen (Negative) Ur Leukocyte Esterase (Negative) Urine WBC (Auto) (0-5) /hpf Urine RBC (Auto) (0-4) /hpf U Hyaline Cast (Auto) (0-5) /lpf U Epithel Cells (Auto) (0-5) /lpf Urine Bacteria (Auto) (Negative) Urine Sperm (None Prsent) Adenovirus (PCR) (NotDetected) B. pertussis DNA (PCR) (NotDetected) B.parapertussis DNA PCR (NotDetected) C. pneumoniae DNA (PCR) (NotDetected) Coronavirus OC43 (PCR) (NotDetected) Coronavirus HKU1 (PCR) (NotDetected) Coronavirus 229E (PCR) (NotDetected) COVID-19 PCR (Negative) Coronavirus NL63 (PCR) (NotDetected) Human Metapneumovir PCR (NotDetected) Influenza Type A (PCR) (Neg) Influenza Type B (PCR) (Neg) M. pneumoniae (PCR) (NotDetected) Parainfluenza 1 (PCR) (NotDetected) Parainfluenza 2 (PCR) (NotDetected) Parainfluenza 3 (PCR) (NotDetected) Parainfluenza 4 (PCR) (NotDetected) RSV (PCR) (NotDetected) Entero/Rhino (PCR) (NotDetected) 12/01/19 12/01/19 12/01/19 Range/Units 08:37 08:37 08:37 WBC (4.8-10.8) K/uL RBC (4.7-6.1) M/uL Hgb (14.0-18.0) g/dL Hct (42-52) % MCV (80-100) fL MCH (25-34) pg MCHC (32-36) g/dL RDW Std Deviation (36.4-46.3) fL RDW Coeff of Ruben (11.5-14.5) % Plt Count (130-400) K/uL MPV (7.4-10.4) fL Immature Gran % (Auto) % Neut % (Auto) % Lymph % (Auto) % [place] % (Auto) % Eos % (Auto) % Baso % (Auto) % Immature Gran # (Auto) (0.00-0.02) K/uL Neut # (Auto) (1.4-6.5) K/uL Lymph # (Auto) (1.2-3.4) K/uL [place] # (Auto) (0.11-0.59) K/uL Eos # (Auto) (0-0.5) K/uL Baso # (Auto) (0-0.2) K/uL ESR (0-14) mm/hr PT (9.0-12.0) Seconds INR (0.9-1.1) APTT (21.0-31.0) Seconds PTT Ratio Sodium 138 (136-145) mmol/L Potassium 4.3 (3.5-5.1) mmol/L Chloride 107 (98-107) mmol/L Carbon Dioxide 26 (21-32) mmol/L Anion Gap 5.0 (3-11) BUN 17 (7-18) mg/dl Creatinine 1.29 (0.6-1.4) mg/dl Est Cr Clr Drug Dosing 52.3 ml/min Est GFR ( Amer) 59.9 Est GFR (Non-Af Amer) 51.7 BUN/Creatinine Ratio 13.1 (10-20) Glucose 127 H (70-99) mg/dl Lactate 2.8 H* (0.4-2.0) mmol/L Calcium 8.9 (8.5-10.1) mg/dl Magnesium 1.9 (1.8-2.4) mg/dl Ferritin 352.4 (8-388) ng/ml Total Bilirubin 0.7 (0.2-1) mg/dl AST 27 (15-37) U/L ALT 42 (12-78) U/L Alkaline Phosphatase 163 H (45-117) U/L Lactate Dehydrogenase 202 (87-241) U/L Total Creatine Kinase 129 (39-308) U/L CK-MB (CK-2) 1.0 (0.5-3.6) ng/ml CK/CKMB % Calc 0.8 (0-3.0) Troponin I < 0.015 (0-0.045) ng/ml C-Reactive Protein 0.52 H (0-0.29) mg/dl Total Protein 7.5 (6.4-8.2) gm/dl Albumin 4.1 (3.4-5.0) gm/dl Globulin 3.4 (2.5-4.0) gm/dl Albumin/Globulin Ratio 1.2 (0.9-2) Procalcitonin (0-0.5) ng/ml Urine Color Urine Appearance (Clear) Urine pH (4.5-7.5) Ur Specific [place] (1.000-1.030) Urine Protein (Negative) Urine Glucose (UA) (Negative) Urine Ketones (Negative) Urine Blood (Negative) Urine Nitrite (Negative) Urine Bilirubin (Negative) Urine Urobilinogen (Negative) Ur Leukocyte Esterase (Negative) Urine WBC (Auto) (0-5) /hpf Urine RBC (Auto) (0-4) /hpf U Hyaline Cast (Auto) (0-5) /lpf U Epithel Cells (Auto) (0-5) /lpf Urine Bacteria (Auto) (Negative) Urine Sperm (None Prsent) Adenovirus (PCR) (NotDetected) B. pertussis DNA (PCR) (NotDetected) B.parapertussis DNA PCR (NotDetected) C. pneumoniae DNA (PCR) (NotDetected) Coronavirus OC43 (PCR) (NotDetected) Coronavirus HKU1 (PCR) (NotDetected) Coronavirus 229E (PCR) (NotDetected) COVID-19 PCR (Negative) Coronavirus NL63 (PCR) (NotDetected) Human Metapneumovir PCR (NotDetected) Influenza Type A (PCR) (Neg) Influenza Type B (PCR) (Neg) M. pneumoniae (PCR) (NotDetected) Parainfluenza 1 (PCR) (NotDetected) Parainfluenza 2 (PCR) (NotDetected) Parainfluenza 3 (PCR) (NotDetected) Parainfluenza 4 (PCR) (NotDetected) RSV (PCR) (NotDetected) Entero/Rhino (PCR) (NotDetected) 12/01/19 12/01/19 12/01/19 Range/Units 08:37 08:37 08:37 WBC (4.8-10.8) K/uL RBC (4.7-6.1) M/uL Hgb (14.0-18.0) g/dL Hct (42-52) % MCV (80-100) fL MCH (25-34) pg MCHC (32-36) g/dL RDW Std Deviation (36.4-46.3) fL RDW Coeff of Ruben (11.5-14.5) % Plt Count (130-400) K/uL MPV (7.4-10.4) fL Immature Gran % (Auto) % Neut % (Auto) % Lymph % (Auto) % [place] % (Auto) % Eos % (Auto) % Baso % (Auto) % Immature Gran # (Auto) (0.00-0.02) K/uL Neut # (Auto) (1.4-6.5) K/uL Lymph # (Auto) (1.2-3.4) K/uL [place] # (Auto) (0.11-0.59) K/uL Eos # (Auto) (0-0.5) K/uL Baso # (Auto) (0-0.2) K/uL ESR (0-14) mm/hr PT (9.0-12.0) Seconds INR (0.9-1.1) APTT (21.0-31.0) Seconds PTT Ratio Sodium (136-145) mmol/L Potassium (3.5-5.1) mmol/L Chloride (98-107) mmol/L Carbon Dioxide (21-32) mmol/L Anion Gap (3-11) BUN (7-18) mg/dl Creatinine (0.6-1.4) mg/dl Est Cr Clr Drug Dosing ml/min Est GFR ( Amer) Est GFR (Non-Af Amer) BUN/Creatinine Ratio (10-20) Glucose (70-99) mg/dl Lactate (0.4-2.0) mmol/L Calcium (8.5-10.1) mg/dl Magnesium (1.8-2.4) mg/dl Ferritin (8-388) ng/ml Total Bilirubin (0.2-1) mg/dl AST (15-37) U/L ALT (12-78) U/L Alkaline Phosphatase (45-117) U/L Lactate Dehydrogenase (87-241) U/L Total Creatine Kinase (39-308) U/L CK-MB (CK-2) (0.5-3.6) ng/ml CK/CKMB % Calc (0-3.0) Troponin I (0-0.045) ng/ml C-Reactive Protein (0-0.29) mg/dl Total Protein (6.4-8.2) gm/dl Albumin (3.4-5.0) gm/dl Globulin (2.5-4.0) gm/dl Albumin/Globulin Ratio (0.9-2) Procalcitonin 0.09 (0-0.5) ng/ml Urine Color Urine Appearance (Clear) Urine pH (4.5-7.5) Ur Specific [place] (1.000-1.030) Urine Protein (Negative) Urine Glucose (UA) (Negative) Urine Ketones (Negative) Urine Blood (Negative) Urine Nitrite (Negative) Urine Bilirubin (Negative) Urine Urobilinogen (Negative) Ur Leukocyte Esterase (Negative) Urine WBC (Auto) (0-5) /hpf Urine RBC (Auto) (0-4) /hpf U Hyaline Cast (Auto) (0-5) /lpf U Epithel Cells (Auto) (0-5) /lpf Urine Bacteria (Auto) (Negative) Urine Sperm (None Prsent) Adenovirus (PCR) (NotDetected) B. pertussis DNA (PCR) (NotDetected) B.parapertussis DNA PCR (NotDetected) C. pneumoniae DNA (PCR) (NotDetected) Coronavirus OC43 (PCR) (NotDetected) Coronavirus HKU1 (PCR) (NotDetected) Coronavirus 229E (PCR) (NotDetected) COVID-19 PCR NEGATIVE (Negative) Coronavirus NL63 (PCR) (NotDetected) Human Metapneumovir PCR (NotDetected) Influenza Type A (PCR) Neg for Influ A (Neg) Influenza Type B (PCR) Neg for Influ B (Neg) M. pneumoniae (PCR) (NotDetected) Parainfluenza 1 (PCR) (NotDetected) Parainfluenza 2 (PCR) (NotDetected) Parainfluenza 3 (PCR) (NotDetected) Parainfluenza 4 (PCR) (NotDetected) RSV (PCR) (NotDetected) Entero/Rhino (PCR) (NotDetected) 12/01/19 12/01/19 12/01/19 Range/Units 08:37 08:45 10:45 WBC (4.8-10.8) K/uL RBC (4.7-6.1) M/uL Hgb (14.0-18.0) g/dL Hct (42-52) % MCV (80-100) fL MCH (25-34) pg MCHC (32-36) g/dL RDW Std Deviation (36.4-46.3) fL RDW Coeff of Ruben (11.5-14.5) % Plt Count (130-400) K/uL MPV (7.4-10.4) fL Immature Gran % (Auto) % Neut % (Auto) % Lymph % (Auto) % [place] % (Auto) % Eos % (Auto) % Baso % (Auto) % Immature Gran # (Auto) (0.00-0.02) K/uL Neut # (Auto) (1.4-6.5) K/uL Lymph # (Auto) (1.2-3.4) K/uL [place] # (Auto) (0.11-0.59) K/uL Eos # (Auto) (0-0.5) K/uL Baso # (Auto) (0-0.2) K/uL ESR (0-14) mm/hr PT (9.0-12.0) Seconds INR (0.9-1.1) APTT (21.0-31.0) Seconds PTT Ratio Sodium (136-145) mmol/L Potassium (3.5-5.1) mmol/L Chloride (98-107) mmol/L Carbon Dioxide (21-32) mmol/L Anion Gap (3-11) BUN (7-18) mg/dl Creatinine (0.6-1.4) mg/dl Est Cr Clr Drug Dosing ml/min Est GFR ( Amer) Est GFR (Non-Af Amer) BUN/Creatinine Ratio (10-20) Glucose (70-99) mg/dl Lactate 2.7 H* (0.4-2.0) mmol/L Calcium (8.5-10.1) mg/dl Magnesium (1.8-2.4) mg/dl Ferritin (8-388) ng/ml Total Bilirubin (0.2-1) mg/dl AST (15-37) U/L ALT (12-78) U/L Alkaline Phosphatase (45-117) U/L Lactate Dehydrogenase (87-241) U/L Total Creatine Kinase (39-308) U/L CK-MB (CK-2) (0.5-3.6) ng/ml CK/CKMB % Calc (0-3.0) Troponin I (0-0.045) ng/ml C-Reactive Protein (0-0.29) mg/dl Total Protein (6.4-8.2) gm/dl Albumin (3.4-5.0) gm/dl Globulin (2.5-4.0) gm/dl Albumin/Globulin Ratio (0.9-2) Procalcitonin (0-0.5) ng/ml Urine Color Yellow Urine Appearance Clear (Clear) Urine pH 5.0 (4.5-7.5) Ur Specific [place] 1.022 (1.000-1.030) Urine Protein 2+ H (Negative) Urine Glucose (UA) Negative (Negative) Urine Ketones Negative (Negative) Urine Blood Negative (Negative) Urine Nitrite Negative (Negative) Urine Bilirubin Negative (Negative) Urine Urobilinogen Negative (Negative) Ur Leukocyte Esterase Negative (Negative) Urine WBC (Auto) 1-5 (0-5) /hpf Urine RBC (Auto) 0-4 (0-4) /hpf U Hyaline Cast (Auto) 1-5 (0-5) /lpf U Epithel Cells (Auto) 10-20 H (0-5) /lpf Urine Bacteria (Auto) Negative (Negative) Urine Sperm Present A (None Prsent) Adenovirus (PCR) Not Detected (NotDetected) B. pertussis DNA (PCR) Not Detected (NotDetected) B.parapertussis DNA PCR Not Detected (NotDetected) C. pneumoniae DNA (PCR) Not Detected (NotDetected) Coronavirus OC43 (PCR) Not Detected (NotDetected) Coronavirus HKU1 (PCR) Not Detected (NotDetected) Coronavirus 229E (PCR) Not Detected (NotDetected) COVID-19 PCR (Negative) Coronavirus NL63 (PCR) Not Detected (NotDetected) Human Metapneumovir PCR Not Detected (NotDetected) Influenza Type A (PCR) Not Detected (Neg) Influenza Type B (PCR) Not Detected (Neg) M. pneumoniae (PCR) Not Detected (NotDetected) Parainfluenza 1 (PCR) Not Detected (NotDetected) Parainfluenza 2 (PCR) Not Detected (NotDetected) Parainfluenza 3 (PCR) Not Detected (NotDetected) Parainfluenza 4 (PCR) Not Detected (NotDetected) RSV (PCR) Not Detected (NotDetected) Entero/Rhino (PCR) Not Detected (NotDetected) Imaging Data Radiologist's Impression: [facility], [place] [phone] XRay Report Patient: SINDY DIXON CAdmit Date: 12/01/19 MR#: [id number]: [address] Acct ID:[id number]: Date: 1940City Zip: [place] [address] Age: 79Location: ED Sex: M Room/Bed: Att Phy:Diagnosis: FEVER,SOB,CHEST PAIN Sofy Phy: Cyril John MDService Date: 12/01/19 [facility] Phy:Interpreting Phy: Vic Carpio MD Admit Phy: Ordering Phy: Luis F Parham MD cc: ~ XR chest 1V portable CLINICAL HISTORY: SEPSIS dyspnea COMPARISON STUDY: 09/22/2017 FINDINGS: Bibasilar parenchymal interstitial infiltrative change. Mid and upper lungs are clear. Mild stable cardiomegaly. IMPRESSION: Bibasilar parenchymal infiltrates. ACT 112: Negative or not required by law. The above report was generated using voice recognition software. It may contain grammatical, syntax or spelling errors. Electronically signed by: Vic Carpio M.D. 12/01/2019 9:37 AM Dictated: 12/01/19936 Transcribed: 12/01/19936 ECG Data Attestation: I personally reviewed and interpreted this ECG as follows: Indication: + SOB/dyspnea Rate (beats per minute): 97 Rhythm: + normal sinus ECG Intervals/blocks: + First degree AV block and + Normal QT-c (457) ECG [place]: + Normal ECG ST segments: no ST depression and no ST elevation Comparison ECG Date: from (09/22/2017) Change: no significant change Blood Pressure Blood Pressure Findings: Low blood pressure MDM Narrative Patient was seen and evaluated as above in room C10. Review was performed of nursing notes and vital signs. I did review pertinent previous visits and patient history. After obtaining a thorough history and physical examination the above work up was performed. This is an 79-year-old male who presents emergency department complaining of cough. Patient is requiring oxygen here in the emergency department. He is normally not on oxygen at home. He is febrile tachycardic and hypotensive. A sepsis alert work-up was initiated. Patient was found to have an elevated lactic acid. His white blood cell count is 15,000. He was started on broad- spectrum antibiotics I did discuss the case with the hospitalist service who did agree to admit the patient. An order was placed for continuous cardiac monitoring. The monitor shows a rate of 77 with Normal Sinus rhythm. I attest that I have personally reviewed the patient medication list. The patient was evaluated during the global COVID-19 pandemic, and that diagnosis was suspected/considered upon their initial presentation. Their evaluation, treatment and testing was consistent with current guidelines for patients who present with complaints or symptoms that may be related to COVID- 19. Impression & Plan Pneumonia, Sepsis Discharge Plan Visit Data *Final* Discharge Date/Time: 12/01/19 14:27 Chief Complaint: Shortness of Breath/Dyspnea ED Provider: Luis F Parham Discharge Problem: Pneumonia, Sepsis Patient Disposition: Admitted As Inpatient Discharge Instructions Interventions: ED Discharge Assessment Last Done: 12/01/19 14:27 Discharge Problem: Pneumonia Qualifiers: Pneumonia type: due to unspecified organism Laterality: unspecified laterality Lung location: unspecified part of lung Qualified Code(s): J18.9 - Pneumonia, unspecified organism Sepsis Qualifiers: Sepsis type: sepsis due to unspecified organism Sepsis acute organ dysfunction status: unspecified Qualified Code(s): A41.9 - Sepsis, unspecified organism
[2019-12-01 09:02] LABS: Basophils # (auto) 0.03 K/uL (0-0.2); Basophils % (auto) 0.2 %; Eosinophils # (auto) 0.05 K/uL (0-0.5); Eosinophils % (auto) 0.3 %; Hematocrit (blood only) 44.5 % (42-52); Immature Granulocytes # (auto) 0.04 K/uL (0.00-0.02); Immature Granulocytes % (auto) 0.3 %; Lymphocytes # (auto) 0.63 K/uL (1.2-3.4); Lymphocytes % (auto) 4.1 %; Mean Corpuscular Hemoglobin 28.6 pg (25-34); Mean Corpuscular Hgb Conc 33.7 g/dL (32-36); Mean Corpuscular Volume 84.9 fL (80-100); Mean Platelet Volume 10.2 fL (7.4-10.4); Monocytes # (auto) 0.72 K/uL (0.11-0.59); Monocytes % (auto) 4.7 %; Neutrophils # (auto) 13.75 K/uL (1.4-6.5); Neutrophils % (auto) 90.4 %; Platelet Count 166 K/uL (130-400); RDW Coefficient of Variation 14.1 % (11.5-14.5); RDW Standard Deviation 43.2 fL (36.4-46.3); Red Blood Count 5.24 M/uL (4.7-6.1); White Blood Count 15.22 K/uL (4.8-10.8)
[2019-12-01 09:20] LABS: Alanine Aminotransferase 42 U/L (12-78); Albumin Level 4.1 gm/dl (3.4-5.0); Aspartate Aminotransferase 27 U/L (15-37); BUN Creatinine Ratio 13.1 (10-20); Blood Urea Nitrogen 17 mg/dl (7-18); C Reactive Protein 0.52 mg/dl (0-0.29); Calcium 8.9 mg/dl (8.5-10.1); Carbon Dioxide 26 mmol/L (21-32); Chloride 107 mmol/L (98-107); Creatinine Clr Calc Pharmacy 52.3 ml/min; Est GFR (African American) 59.9; Est GFR (Non-African American) 51.7; Glucose 127 mg/dl (70-99); Magnesium 1.9 mg/dl (1.8-2.4); Partial Thromboplastin Ratio 0.9; Partial Thromboplastin Time 25.8 Seconds (21.0-31.0); Potassium 4.3 mmol/L (3.5-5.1); Prothrombin Time 10.9 Seconds (9.0-12.0); Sodium 138 mmol/L (136-145)
[2019-12-01 09:23] LABS: Albumin Globulin Ratio 1.2 (0.9-2); Alkaline Phosphatase 163 U/L (45-117); Bilirubin,Total 0.7 mg/dl (0.2-1); Creatine Kinase 129 U/L (39-308); Ferritin 352.4 ng/ml (8-388); Globulin 3.4 gm/dl (2.5-4.0); Total Protein 7.5 gm/dl (6.4-8.2); Troponin I < 0.015 ng/ml (0-0.045)
[2019-12-01 09:35] LABS: Appearance Urine Clear (Clear); Bacteria Urine Automated Negative (Negative); Bilirubin Urine Negative (Negative); Blood Urine Negative (Negative); Color Urine Yellow; Glucose Urine UA Negative (Negative); Ketones Urine Negative (Negative); Leukocyte Esterase Urine Negative (Negative); Nitrite Urine Negative (Negative); Protein Urine 2+ (Negative); RBC Urine Automated 0-4 /hpf (0-4); Specific Gravity Urine 1.022 (1.000-1.030); Urobilinogen Urine Negative (Negative)
--- NOTE | 2019-12-01 09:38 | XRay Report ---
XR chest 1V portable CLINICAL HISTORY: SEPSIS dyspnea COMPARISON STUDY: 09/22/2017 FINDINGS: Bibasilar parenchymal interstitial infiltrative change. Mid and upper lungs are clear. Mild stable cardiomegaly. IMPRESSION: Bibasilar parenchymal infiltrates. ACT 112: Negative or not required by law. The above report was generated using voice recognition software. It may contain grammatical, syntax or spelling errors. Electronically signed by: Vic Carpio M.D. 12/01/2019 9:37 AM
[2019-12-01] MEDS ORDERED: LEVOFLOXACIN/D5W 750 MG/150 ML BAG IV STA (09:49)
[2019-12-01] MEDS ORDERED: CEFEPIME 2,000 MG/20 ML VIAL IV STA (09:49)
[2019-12-01 09:57] LABS: Influenza A virus by PCR Neg for Influ A (Neg); Influenza B virus by PCR Neg for Influ B (Neg)
[2019-12-01 10:08] LABS: Sperm Urine Present (None Prsent)
--- NOTE | 2019-12-01 11:39 | History & Physical Report ---
Date of Service December 01, 2019 Assessment & Plan (1) Pneumonia: This patient is an 79-year-old male here with pneumonia, sepsis, and acute respiratory failure with hypoxia. With chills at home but no documented fever yet, leukocytosis with lymphopenia, markers of inflammation are not significantly elevated for his age, procalcitonin is negative, lactate mildly elevated at 2.8 which may be from tachypnea, chest x-ray with bibasilar pneumonia and clinical exam consistent with such. He had preceding sore throat, runny nose, and [id number] is negative. Flu swab is negative. -Admit to medical floor with telemetry -Was given 1 dose of IV cefepime and Levaquin in the ER-he comes from the community-will treat for community-acquired pneumonia with IV Rocephin and azithromycin -Follow chest x-ray PA and lateral in the morning -Continue supplemental O2 to keep pulse ox greater than 92% and wean off as able to -DuoNebs every 6 hours given history of mild COPD and hypoxia -Will check [employer] upper respiratory panel PCR test -Check procalcitonin again in the morning -Droplet and contact precautions for now until bio fire returns negative -If bio AMT ([employer]) panel is positive, will discontinue antibiotics -We will check sputum culture, follow blood cultures drawn in the ER -Pulmonary toilet with flutter valve 3 times daily (2) Acute respiratory failure with hypoxia: Secondary to pneumonia -Continue supplemental O2 and titrate off as able to with keeping pulse ox greater than 92% -Pulmonary toilet and duo nebs -Treating pneumonia as above (3) Sepsis: With leukocytosis, tachycardia, tachypnea, mildly elevated lactate, and with pneumonia as source Not severe sepsis -Continue IV fluids for 1 more liter of normal saline at 75 mL's per hour -Follow lactate -Treating with antibiotics as above (4) COPD, mild: With a remote history of smoking, quit 20 years ago Not on any inhalers at home Unclear if his had PFTs -Duo nebs here while sick with pneumonia and hypoxia (5) Barretts esophagus: Continue Prilosec twice daily Get surveillance EGDs once a year (6) Gastroesophageal reflux disease: Continue PPI twice daily (7) Hyperlipidemia: Continue simvastatin (8) HTN (hypertension): Stable -Continue home lisinopril, amlodipine, atenolol with hold parameters (9) Chronic constipation: Secondary to known adhesive disease -Continue home daily MiraLAX and home Citrucel once daily (10) Abdominal pain: Chronic, secondary to adhesive disease, no acute issues -Continue on bowel regimen to prevent constipation (11) Anxiety: Has difficulty falling asleep at home sometimes and is requesting medicine for sleep while in the hospital -We will give lorazepam 0.5 mg p.o. nightly as needed (12) Gout: No flares in a long time -Continue daily allopurinol for prophylaxis (13) DVT prophylaxis: SQ Lovenox and SCDs Disposition-admit to medical floor with telemetry, expected least a 2 midnight stay for sepsis and pneumonia with acute respiratory failure with hypoxia PT/OT evaluations ordered given advanced age and acute illness, comes from home History of Present Illness Chief Complaint: Shortness of breath, cough Primary Care Provider: Cyril John MD This patient is an 79-year-old male with a history of HTN, gout, anxiety with insomnia, mild COPD, GERD, Rahman, B12 deficiency, pulmonary nodules, and esophageal cancer, who presents with less than 24 hours of sore throat, productive cough, chills with a temperature of 99 at home, and worsening shortness of breath this morning. He became so short of breath this morning that he called an ambulance to bring him to the hospital. He denies any known sick contacts including those with CoVid-19. He comes from home and lives with his . He had some nausea with one small episode of vomiting this morning, but denies any current nausea. He has not had any diarrhea. He does suffer from chronic abdominal pain secondary to adhesive disease from multiple abdominal surgeries. In the ER, he was found to be working hard to breathe with a pulse ox of 92% that is recorded, however he was placed on 3 L nasal cannula and was much more comfortable. He was found to have bilateral basilar pneumonia on chest x-ray, leukocytosis, with tachycardia and tachypnea. His CoVid-19 test was negative in the ER, and a flu swab was negative. Blood cultures were drawn and he was given 1 dose of IV cefepime and IV levofloxacin, as well as IV acetaminophen and 2 puffs of an albuterol MDI-he was feeling much improved when I saw him. He will be admitted as an inpatient for pneumonia and sepsis with acute respiratory failure with hypoxia. Allergies Allergy/AdvReac Type Severity Reaction Status Date / Time valsartan [From Diovan] Allergy Severe Verified 12/01/19 08:48 Penicillins Allergy Unknown Verified 12/01/19 08:48 codeine AdvReac Intermediate SICK IN Verified 12/01/19 08:48 STOMACH morphine AdvReac Intermediate nausea Verified 12/01/19 08:48 amoxicillin AdvReac Unknown BURNING IN Unverified 12/01/19 08:48 STOMACH clavulanic acid AdvReac Unknown BURNING IN Unverified 12/01/19 08:48 STOMACH Home Medications Home Medications Medication Instructions Recorded Confirmed Type aspirin 81 mg PO DAILY 11/25/18 12/01/19 History magnesium oxide 400 mg PO BID 11/25/18 12/01/19 History amlodipine 5 mg tablet 5 mg PO DAILY #90 tab 08/24/19 12/01/19 Rx atenolol 100 mg tablet 100 mg PO BID #180 tab 11/17/19 12/01/19 Rx allopurinol 200 mg PO DAILY 12/01/19 12/01/19 History lisinopril 20 mg PO DAILY 12/01/19 12/01/19 History omeprazole 20 mg PO BID 12/01/19 12/01/19 History simvastatin 20 mg PO DAILY 12/01/19 12/01/19 History Past Med/Surg History Medical History Abdominal pain (Resolved) Abdominal pain Allergic rhinitis (Acute) Anemia (Acute) Anxiety (Acute) Barretts esophagus (Acute) Chest pain (Resolved) Cholecystitis (Resolved) COPD, mild (Acute) Dizziness (Resolved) Expressive aphasia (Resolved) Gastroesophageal reflux disease (Acute 09/14/12) Gout History of diverticulitis of colon HTN (hypertension) (Chronic) Hyperlipidemia (Acute) Hypomagnesemia (Chronic) Lumbar canal stenosis Nonalcoholic fatty liver disease (Acute) Pulmonary nodules (Acute) Syncope (Resolved) Vitamin B12 deficiency (Acute) Surgical History History of ankle surgery History of partial colectomy History of surgical procedure on eye proper using laser Hx of appendectomy Hx of cholecystectomy Hx of hernia repair Family History Brother Cancer kidney Hypertension Heart disease Atrial fibrillation Brother Biliary cirrhosis Diabetes Liver transplant recipient Other Family history non-contributory Denies family history of Ovarian cancer Prostate cancer Myocardial infarction Breast cancer Colorectal cancer Social History marital status: Current Living Situation: Spouse current occupational status: retired Feels Safe at Home: Yes Smoking Status: Former smoker Tobacco Type: cigarettes ; Number of Years Since Quit: 20 ; Hx Alcohol Use: No Hx Substance Use: No caffeine: Yes Dental Care, Regularly: No Physical Activity Frequency: 1-2 Times per Week Seatbelt Use: always Sunscreen Use: Yes Review of Systems Review of Systems: All systems reviewed & are unremarkable except as noted in HPI & below With insomnia especially in the hospital setting Had some chest pain on the right side yesterday which is now resolved With chronic left lower quadrant abdominal pain Otherwise as per HPI Physical Exam Constitutional: WD/WN, vitals as above Eyes: + anicteric sclerae ENMT: external ear and nose normal, oropharynx normal Neck: trachea midline, no thyromegaly Respiratory: normal respiratory effort (With nasal cannula in place) and able to speak in complete sentences; no labored breathing and not tachypneic Auscu ltation: + crackles (Bilateral bases) and + rhonchi (At bilateral bases); no wheezes Cardiovascular: RRR, no murmur, no edema Chest (Breasts): Chest: normal inspection of chest Gastrointestinal (Abdomen): normal bowel sounds, soft, nontender, no hepatosplenomegaly Inspection/Auscultation: + abdomen abnormal to inspection (Surgical scar in the left inguinal region and midline of abdomen) Musculoskeletal: Extremities: extremities normal to inspection; no cyanosis and no clubbing Skin: no rashes, warm and dry Neurologic: moves all extremities and awake; no focal motor deficits Psychiatric: A+Ox3, euthymic affect Lymphatic: no lymphedema Results & Data Results & Data ([facility]) Vital Signs (Past 12 Hours) Vital Signs Temp Pulse Pulse Resp BP BP Pulse Ox 12/01/19 10:37 98 H 18 127/53 L 95 12/01/19 09:19 95 H 22 130/59 L 93 12/01/19 09:09 37.3 C 97 H 26 H 173/73 H 93 Laboratory Results 12/01/19 12/01/19 12/01/19 Range/Units 10:45 08:45 08:37 WBC (4.8-10.8) K/uL RBC (4.7-6.1) M/uL Hgb (14.0-18.0) g/dL Hct (42-52) % MCV (80-100) fL MCH (25-34) pg MCHC (32-36) g/dL RDW Std Deviation (36.4-46.3) fL RDW Coeff of Ruben (11.5-14.5) % Plt Count (130-400) K/uL MPV (7.4-10.4) fL Immature Gran % (Auto) % Neut % (Auto) % Lymph % (Auto) % [place] % (Auto) % Eos % (Auto) % Baso % (Auto) % Immature Gran # (Auto) (0.00-0.02) K/uL Neut # (Auto) (1.4-6.5) K/uL Lymph # (Auto) (1.2-3.4) K/uL [place] # (Auto) (0.11-0.59) K/uL Eos # (Auto) (0-0.5) K/uL Baso # (Auto) (0-0.2) K/uL ESR (0-14) mm/hr PT (9.0-12.0) Seconds INR (0.9-1.1) APTT (21.0-31.0) Seconds PTT Ratio Sodium (136-145) mmol/L Potassium (3.5-5.1) mmol/L Chloride (98-107) mmol/L Carbon Dioxide (21-32) mmol/L Anion Gap (3-11) BUN (7-18) mg/dl Creatinine (0.6-1.4) mg/dl Est Cr Clr Drug Dosing ml/min Est GFR ( Amer) Est GFR (Non-Af Amer) BUN/Creatinine Ratio (10-20) Glucose (70-99) mg/dl Lactate 2.7 H* (0.4-2.0) mmol/L Calcium (8.5-10.1) mg/dl Magnesium (1.8-2.4) mg/dl Ferritin (8-388) ng/ml Total Bilirubin (0.2-1) mg/dl AST (15-37) U/L ALT (12-78) U/L Alkaline Phosphatase (45-117) U/L Lactate Dehydrogenase (87-241) U/L Total Creatine Kinase (39-308) U/L CK-MB (CK-2) (0.5-3.6) ng/ml CK/CKMB % Calc (0-3.0) Troponin I (0-0.045) ng/ml C-Reactive Protein (0-0.29) mg/dl Total Protein (6.4-8.2) gm/dl Albumin (3.4-5.0) gm/dl Globulin (2.5-4.0) gm/dl Albumin/Globulin Ratio (0.9-2) Procalcitonin (0-0.5) ng/ml Urine Color Yellow Urine Appearance Clear (Clear) Urine pH 5.0 (4.5-7.5) Ur Specific [place] 1.022 (1.000-1.030) Urine Protein 2+ H (Negative) Urine Glucose (UA) Negative (Negative) Urine Ketones Negative (Negative) Urine Blood Negative (Negative) Urine Nitrite Negative (Negative) Urine Bilirubin Negative (Negative) Urine Urobilinogen Negative (Negative) Ur Leukocyte Esterase Negative (Negative) Urine WBC (Auto) 1-5 (0-5) /hpf Urine RBC (Auto) 0-4 (0-4) /hpf U Hyaline Cast (Auto) 1-5 (0-5) /lpf U Epithel Cells (Auto) 10-20 H (0-5) /lpf Urine Bacteria (Auto) Negative (Negative) Urine Sperm Present A (None Prsent) COVID-19 PCR NEGATIVE (Negative) Influenza Type A (PCR) (Neg) Influenza Type B (PCR) (Neg) 12/01/19 12/01/19 12/01/19 Range/Units 08:37 08:37 08:37 WBC (4.8-10.8) K/uL RBC (4.7-6.1) M/uL Hgb (14.0-18.0) g/dL Hct (42-52) % MCV (80-100) fL MCH (25-34) pg MCHC (32-36) g/dL RDW Std Deviation (36.4-46.3) fL RDW Coeff of Ruben (11.5-14.5) % Plt Count (130-400) K/uL MPV (7.4-10.4) fL Immature Gran % (Auto) % Neut % (Auto) % Lymph % (Auto) % [place] % (Auto) % Eos % (Auto) % Baso % (Auto) % Immature Gran # (Auto) (0.00-0.02) K/uL Neut # (Auto) (1.4-6.5) K/uL Lymph # (Auto) (1.2-3.4) K/uL [place] # (Auto) (0.11-0.59) K/uL Eos # (Auto) (0-0.5) K/uL Baso # (Auto) (0-0.2) K/uL ESR (0-14) mm/hr PT (9.0-12.0) Seconds INR (0.9-1.1) APTT (21.0-31.0) Seconds PTT Ratio Sodium (136-145) mmol/L Potassium (3.5-5.1) mmol/L Chloride (98-107) mmol/L Carbon Dioxide (21-32) mmol/L Anion Gap (3-11) BUN (7-18) mg/dl Creatinine (0.6-1.4) mg/dl Est Cr Clr Drug Dosing ml/min Est GFR ( Amer) Est GFR (Non-Af Amer) BUN/Creatinine Ratio (10-20) Glucose (70-99) mg/dl Lactate (0.4-2.0) mmol/L Calcium (8.5-10.1) mg/dl Magnesium (1.8-2.4) mg/dl Ferritin (8-388) ng/ml Total Bilirubin (0.2-1) mg/dl AST (15-37) U/L ALT (12-78) U/L Alkaline Phosphatase (45-117) U/L Lactate Dehydrogenase 202 (87-241) U/L Total Creatine Kinase (39-308) U/L CK-MB (CK-2) (0.5-3.6) ng/ml CK/CKMB % Calc (0-3.0) Troponin I (0-0.045) ng/ml C-Reactive Protein (0-0.29) mg/dl Total Protein (6.4-8.2) gm/dl Albumin (3.4-5.0) gm/dl Globulin (2.5-4.0) gm/dl Albumin/Globulin Ratio (0.9-2) Procalcitonin 0.09 (0-0.5) ng/ml Urine Color Urine Appearance (Clear) Urine pH (4.5-7.5) Ur Specific [place] (1.000-1.030) Urine Protein (Negative) Urine Glucose (UA) (Negative) Urine Ketones (Negative) Urine Blood (Negative) Urine Nitrite (Negative) Urine Bilirubin (Negative) Urine Urobilinogen (Negative) Ur Leukocyte Esterase (Negative) Urine WBC (Auto) (0-5) /hpf Urine RBC (Auto) (0-4) /hpf U Hyaline Cast (Auto) (0-5) /lpf U Epithel Cells (Auto) (0-5) /lpf Urine Bacteria (Auto) (Negative) Urine Sperm (None Prsent) COVID-19 PCR (Negative) Influenza Type A (PCR) Neg for Influ A (Neg) Influenza Type B (PCR) Neg for Influ B (Neg) 12/01/19 12/01/19 12/01/19 Range/Units 08:37 08:37 08:37 WBC (4.8-10.8) K/uL RBC (4.7-6.1) M/uL Hgb (14.0-18.0) g/dL Hct (42-52) % MCV (80-100) fL MCH (25-34) pg MCHC (32-36) g/dL RDW Std Deviation (36.4-46.3) fL RDW Coeff of Ruben (11.5-14.5) % Plt Count (130-400) K/uL MPV (7.4-10.4) fL Immature Gran % (Auto) % Neut % (Auto) % Lymph % (Auto) % [place] % (Auto) % Eos % (Auto) % Baso % (Auto) % Immature Gran # (Auto) (0.00-0.02) K/uL Neut # (Auto) (1.4-6.5) K/uL Lymph # (Auto) (1.2-3.4) K/uL [place] # (Auto) (0.11-0.59) K/uL Eos # (Auto) (0-0.5) K/uL Baso # (Auto) (0-0.2) K/uL ESR (0-14) mm/hr PT 10.9 (9.0-12.0) Seconds INR 1.0 (0.9-1.1) APTT 25.8 (21.0-31.0) Seconds PTT Ratio 0.9 Sodium 138 (136-145) mmol/L Potassium 4.3 (3.5-5.1) mmol/L Chloride 107 (98-107) mmol/L Carbon Dioxide 26 (21-32) mmol/L Anion Gap 5.0 (3-11) BUN 17 (7-18) mg/dl Creatinine 1.29 (0.6-1.4) mg/dl Est Cr Clr Drug Dosing 52.3 ml/min Est GFR ( Amer) 59.9 Est GFR (Non-Af Amer) 51.7 BUN/Creatinine Ratio 13.1 (10-20) Glucose 127 H (70-99) mg/dl Lactate 2.8 H* (0.4-2.0) mmol/L Calcium 8.9 (8.5-10.1) mg/dl Magnesium 1.9 (1.8-2.4) mg/dl Ferritin 352.4 (8-388) ng/ml Total Bilirubin 0.7 (0.2-1) mg/dl AST 27 (15-37) U/L ALT 42 (12-78) U/L Alkaline Phosphatase 163 H (45-117) U/L Lactate Dehydrogenase (87-241) U/L Total Creatine Kinase 129 (39-308) U/L CK-MB (CK-2) 1.0 (0.5-3.6) ng/ml CK/CKMB % Calc 0.8 (0-3.0) Troponin I < 0.015 (0-0.045) ng/ml C-Reactive Protein 0.52 H (0-0.29) mg/dl Total Protein 7.5 (6.4-8.2) gm/dl Albumin 4.1 (3.4-5.0) gm/dl Globulin 3.4 (2.5-4.0) gm/dl Albumin/Globulin Ratio 1.2 (0.9-2) Procalcitonin (0-0.5) ng/ml Urine Color Urine Appearance (Clear) Urine pH (4.5-7.5) Ur Specific [place] (1.000-1.030) Urine Protein (Negative) Urine Glucose (UA) (Negative) Urine Ketones (Negative) Urine Blood (Negative) Urine Nitrite (Negative) Urine Bilirubin (Negative) Urine Urobilinogen (Negative) Ur Leukocyte Esterase (Negative) Urine WBC (Auto) (0-5) /hpf Urine RBC (Auto) (0-4) /hpf U Hyaline Cast (Auto) (0-5) /lpf U Epithel Cells (Auto) (0-5) /lpf Urine Bacteria (Auto) (Negative) Urine Sperm (None Prsent) COVID-19 PCR (Negative) Influenza Type A (PCR) (Neg) Influenza Type B (PCR) (Neg) 12/01/19 12/01/19 Range/Units 08:37 08:37 WBC 15.22 H (4.8-10.8) K/uL RBC 5.24 (4.7-6.1) M/uL Hgb 15.0 (14.0-18.0) g/dL Hct 44.5 (42-52) % MCV 84.9 (80-100) fL MCH 28.6 (25-34) pg MCHC 33.7 (32-36) g/dL RDW Std Deviation 43.2 (36.4-46.3) fL RDW Coeff of Ruben 14.1 (11.5-14.5) % Plt Count 166 (130-400) K/uL MPV 10.2 (7.4-10.4) fL Immature Gran % (Auto) 0.3 % Neut % (Auto) 90.4 % Lymph % (Auto) 4.1 % [place] % (Auto) 4.7 % Eos % (Auto) 0.3 % Baso % (Auto) 0.2 % Immature Gran # (Auto) 0.04 H (0.00-0.02) K/uL Neut # (Auto) 13.75 H (1.4-6.5) K/uL Lymph # (Auto) 0.63 L (1.2-3.4) K/uL [place] # (Auto) 0.72 H (0.11-0.59) K/uL Eos # (Auto) 0.05 (0-0.5) K/uL Baso # (Auto) 0.03 (0-0.2) K/uL ESR 16 H (0-14) mm/hr PT (9.0-12.0) Seconds INR (0.9-1.1) APTT (21.0-31.0) Seconds PTT Ratio Sodium (136-145) mmol/L Potassium (3.5-5.1) mmol/L Chloride (98-107) mmol/L Carbon Dioxide (21-32) mmol/L Anion Gap (3-11) BUN (7-18) mg/dl Creatinine (0.6-1.4) mg/dl Est Cr Clr Drug Dosing ml/min Est GFR ( Amer) Est GFR (Non-Af Amer) BUN/Creatinine Ratio (10-20) Glucose (70-99) mg/dl Lactate (0.4-2.0) mmol/L Calcium (8.5-10.1) mg/dl Magnesium (1.8-2.4) mg/dl Ferritin (8-388) ng/ml Total Bilirubin (0.2-1) mg/dl AST (15-37) U/L ALT (12-78) U/L Alkaline Phosphatase (45-117) U/L Lactate Dehydrogenase (87-241) U/L Total Creatine Kinase (39-308) U/L CK-MB (CK-2) (0.5-3.6) ng/ml CK/CKMB % Calc (0-3.0) Troponin I (0-0.045) ng/ml C-Reactive Protein (0-0.29) mg/dl Total Protein (6.4-8.2) gm/dl Albumin (3.4-5.0) gm/dl Globulin (2.5-4.0) gm/dl Albumin/Globulin Ratio (0.9-2) Procalcitonin (0-0.5) ng/ml Urine Color Urine Appearance (Clear) Urine pH (4.5-7.5) Ur Specific [place] (1.000-1.030) Urine Protein (Negative) Urine Glucose (UA) (Negative) Urine Ketones (Negative) Urine Blood (Negative) Urine Nitrite (Negative) Urine Bilirubin (Negative) Urine Urobilinogen (Negative) Ur Leukocyte Esterase (Negative) Urine WBC (Auto) (0-5) /hpf Urine RBC (Auto) (0-4) /hpf U Hyaline Cast (Auto) (0-5) /lpf U Epithel Cells (Auto) (0-5) /lpf Urine Bacteria (Auto) (Negative) Urine Sperm (None Prsent) COVID-19 PCR (Negative) Influenza Type A (PCR) (Neg) Influenza Type B (PCR) (Neg) Diagnostic Findings Chest x-ray image personally reviewed by me and agree with the following report: XR chest 1V portable CLINICAL HISTORY: SEPSIS dyspnea COMPARISON STUDY: 09/22/2017 FINDINGS: Bibasilar parenchymal interstitial infiltrative change. Mid and upper lungs are clear. Mild stable cardiomegaly. IMPRESSION: Bibasilar parenchymal infiltrates. ECG Additional Comments: Sinus rhythm with first-degree AV block, QTC 457, no ischemic changes Code Status & VTE Plan Code Status Full code VTE Prophylaxis Plan VTE Prophylaxis will be ordered: Yes PG Care Time/CCT Total # of Minutes Spent Total Time Spent with Patient: Total time spent is greater than 50% in coordination of care (as documented) at patient's floor/unit and/or counseling patient: Coding Level of Care Code 53420 Initial Inpt Care Lvl 3 Diagnoses Pneumonia J18.9 Acute respiratory failure with hypoxia J96.01 Sepsis A41.9 COPD, mild J44.9 Barretts esophagus K22.70 Gastroesophageal reflux disease K21.9 Hyperlipidemia E78.5 HTN (hypertension) I10 Chronic constipation K59.09 Abdominal pain R10.9 Anxiety F41.9 Gout M10.9 DVT prophylaxis Z29.9
--- NOTE | 2019-12-01 12:38 | Electrocardiogram Report ---
Test Reason : Blood Pressure : / mmHG Vent. Rate : 097 BPM Atrial Rate : 097 BPM P-R Int : 222 ms QRS Dur : 080 ms QT Int : 360 ms P-R-T Axes : 073 016 056 degrees QTc Int : 457 ms Sinus rhythm with 1st degree A-V block Otherwise normal ECG When compared with ECG of 22-SEP-2017 11:03, No significant change was found Confirmed by Sd Braxton ([id number]) on 12/01/2019 12:38:01 PM Referred By: REFERRED SELF Confirmed By:Sd Braxton
[2019-12-01 14:04] LABS: Adenovirus PCR Not Detected (NotDetected); Bordetella parapertussis PCR Not Detected (NotDetected); Bordetella pertussis PCR Not Detected (NotDetected); Chlamydia pneumoniae PCR Not Detected (NotDetected); Coronavirus 229E PCR Not Detected (NotDetected); Coronavirus HKU1 PCR Not Detected (NotDetected); Coronavirus NL63 PCR Not Detected (NotDetected); Coronavirus OC43PCR Not Detected (NotDetected); Human Metapneumovirus PCR Not Detected (NotDetected); Influenza A PCR Not Detected (NotDetected); Influenza B PCR Not Detected (NotDetected); Mycoplasma pneumoniae PCR Not Detected (NotDetected); Parainfluenza Virus 1 PCR Not Detected (NotDetected); Parainfluenza Virus 2 PCR Not Detected (NotDetected); Parainfluenza Virus 3 PCR Not Detected (NotDetected); Parainfluenza Virus 4 PCR Not Detected (NotDetected); Respiratory Syncytial VirusPCR Not Detected (NotDetected); Rhinovirus/Enterovirus PCR Not Detected (NotDetected)
[2019-12-01] MEDS ORDERED: ALUMINUM/MAGNESIUM SUSP 30 ML UDC PO PRN (14:57)
[2019-12-01] MEDS ORDERED: ONDANSETRON INJ 2 MG/ML 2 ML VIAL IV PRN (14:57)
[2019-12-01] MEDS ORDERED: LORazepam 0.5 MG TAB PO PRN (14:57)
[2019-12-01] MEDS ORDERED: ACETAMINOPHEN 325 MG TAB PO PRN (14:57)
[2019-12-01] MEDS ORDERED: SODIUM CHLORIDE 0.9% 1000ML 1,000 ML IV SCH (14:57)
[2019-12-01] MEDS ORDERED: MAGNESIUM HYDROXIDE SUSP 30 ML UDC PO PRN (14:57)
[2019-12-01] MEDS: ALBUT/IPRATROP 3MG/0.5MG NEB 3 ML VIAL NEB SCH ×2 (15:37→19:22)
[2019-12-01] MEDS: cefTRIAXone SODIUM 1,000 MG in DEXTROSE 5% 50 ML IV SCH (16:40)
[2019-12-01] MEDS: ENOXAPARIN INJ 40 MG/0.4 ML SYR SQ SCH (16:41)
[2019-12-01] MEDS: PANTOprazole 40 MG TAB PO SCH (20:23)
[2019-12-01] MEDS: SIMVASTATIN 20 MG TAB PO SCH (20:23)
[2019-12-01] MEDS: MAGNESIUM OXIDE 400 MG TAB PO SCH (20:24)
[2019-12-01] MEDS: ATENOLOL 50 MG TABLET PO SCH (20:24)
[2019-12-02] MEDS: ALBUT/IPRATROP 3MG/0.5MG NEB 3 ML VIAL NEB SCH ×4 (07:10→19:08)
[2019-12-02 08:07] LABS: Basophils # (auto) 0.02 K/uL (0-0.2); Basophils % (auto) 0.2 %; Eosinophils # (auto) 0.08 K/uL (0-0.5); Eosinophils % (auto) 0.6 %; Hematocrit (blood only) 37.9 % (42-52); Hemoglobin 12.5 g/dL (14.0-18.0); Immature Granulocytes # (auto) 0.03 K/uL (0.00-0.02); Immature Granulocytes % (auto) 0.2 %; Lymphocytes # (auto) 2.04 K/uL (1.2-3.4); Lymphocytes % (auto) 15.9 %; Mean Corpuscular Hemoglobin 28.3 pg (25-34); Mean Corpuscular Volume 85.9 fL (80-100); Mean Platelet Volume 10.4 fL (7.4-10.4); Monocytes # (auto) 0.88 K/uL (0.11-0.59); Monocytes % (auto) 6.8 %; Neutrophils % (auto) 76.3 %; Platelet Count 136 K/uL (130-400); RDW Coefficient of Variation 14.7 % (11.5-14.5); RDW Standard Deviation 45.2 fL (36.4-46.3); Red Blood Count 4.41 M/uL (4.7-6.1); White Blood Count 12.85 K/uL (4.8-10.8)
[2019-12-02 08:31] LABS: Albumin Level 3.1 gm/dl (3.4-5.0); BUN Creatinine Ratio 16.2 (10-20); Calcium 8.4 mg/dl (8.5-10.1); Creatinine Clr Calc Pharmacy 48.2 ml/min; Est GFR (African American) 55.2; Est GFR (Non-African American) 47.6; Potassium 3.9 mmol/L (3.5-5.1)
[2019-12-02] MEDS: POLYETHYLENE (MIRALAX) 17 GM PACK PO SCH (08:31)
[2019-12-02] MEDS: METHYLCELLULOSE POWDER 454 GM JAR PO SCH (08:32)
[2019-12-02] MEDS: PANTOprazole 40 MG TAB PO SCH ×2 (08:32→20:54)
[2019-12-02] MEDS: lisinopriL 20 MG TAB PO SCH (08:32)
[2019-12-02] MEDS: AMLODIPINE BESYLATE 5 MG TAB PO SCH (08:32)
[2019-12-02] MEDS: AZITHROMYCIN 250 MG TAB PO SCH (08:32)
[2019-12-02] MEDS: MAGNESIUM OXIDE 400 MG TAB PO SCH ×2 (08:33→20:55)
[2019-12-02] MEDS: allopurinoL 100 MG TAB PO SCH (08:33)
[2019-12-02] MEDS: ATENOLOL 50 MG TABLET PO SCH ×2 (08:33→20:54)
[2019-12-02 08:34] LABS: Albumin Globulin Ratio 0.9 (0.9-2); Bilirubin,Total 0.8 mg/dl (0.2-1); Globulin 3.3 gm/dl (2.5-4.0); Total Protein 6.4 gm/dl (6.4-8.2)
[2019-12-02] MEDS: ASPIRIN 81 MG ECTAB PO SCH (09:01)
--- NOTE | 2019-12-02 09:49 | XRay Report ---
XR chest 2V PA/lateral CLINICAL HISTORY: Pneumonia COMPARISON STUDY: 6-20 FINDINGS: The cardiac and mediastinal contours remain stable. There is no failure. There are no signi ficant pleural effusions. There are resolving basilar airspace opacities[ IMPRESSION: Resolving basilar airspace opacities. ACT 112: Negative or not required by law. Electronically signed by: Gera Hebert M.D. 12/02/2019 9:48 AM
[2019-12-02] MEDS: ENOXAPARIN INJ 40 MG/0.4 ML SYR SQ SCH (15:57)
[2019-12-02] MEDS: cefTRIAXone SODIUM 1,000 MG in DEXTROSE 5% 50 ML IV SCH (15:57)
[2019-12-02] MEDS: SIMVASTATIN 20 MG TAB PO SCH (20:54)
--- NOTE | 2019-12-02 22:52 | Hospitalist Progress Note ---
Date of Service December 02, 2019 Assessment & Plan (1) Pneumonia: This patient is an 79-year-old male here with pneumonia, sepsis, and acute respiratory failure with hypoxia. With chills at home but no documented fever yet, leukocytosis with lymphopenia, markers of inflammation are not significantly elevated for his age, procalcitonin is negative, lactate mildly elevated at 2.8 which may be from tachypnea, chest x-ray with bibasilar pneumonia and clinical exam consistent with such. He had preceding sore throat, runny nose, and [id number] is negative. Flu swab is negative. -Admit to medical floor with telemetry Patient is improving. Continue flutter valve and antibiotics. anticpate discharge within next 24-48 hours. continue ceftriaxone and azithromycin. -Pulmonary toilet with flutter valve 3 times daily (2) Acute respiratory failure with hypoxia: Secondary to pneumonia -Continue supplemental O2 and titrate off as able to with keeping pulse ox greater than 92% -Pulmonary toilet and duo nebs -Treating pneumonia as above (3) Sepsis: With leukocytosis, tachycardia, tachypnea, mildly elevated lactate, and with pneumonia as source Not severe sepsis -Treating with antibiotics as above (4) COPD, mild: With a remote history of smoking, quit 20 years ago Not on any inhalers at home Unclear if his had PFTs -Duo nebs here while sick with pneumonia and hypoxia (5) Barretts esophagus: Continue Prilosec twice daily Get surveillance EGDs once a year (6) Gastroesophageal reflux disease: Continue PPI twice daily (7) Hyperlipidemia: Continue simvastatin (8) HTN (hypertension): Stable -Continue home lisinopril, amlodipine, atenolol with hold parameters (9) Chronic constipation: Secondary to known adhesive disease -Continue home daily MiraLAX and home Citrucel once daily (10) Abdominal pain: Chronic, secondary to adhesive disease, no acute issues -Continue on bowel regimen to prevent constipation (11) Anxiety: Has difficulty falling asleep at home sometimes and is requesting medicine for sleep while in the hospital -We will give lorazepam 0.5 mg p.o. nightly as needed (12) Gout: No flares in a long time -Continue daily allopurinol for prophylaxis (13) DVT prophylaxis: SQ Lovenox and SCDs Disposition-admit to medical floor with telemetry, expected least a 2 midnight stay for sepsis and pneumonia with acute respiratory failure with hypoxia PT/OT evaluations ordered given advanced age and acute illness, comes from home Admission and Anticipated Discharge Date Admission Date: December 01, 2019 Subjective Patient reports feeling better. He is coughing up more sputum with the flutter valve. He has no new complaints. He is still requiring oxygen. Review of Systems Review of Systems: All systems reviewed & are unremarkable except as noted in HPI & below Physical Exam Physical Exam: Constitutional: WD/WN, vitals as above Eyes: + anicteric sclerae ENMT: external ear and nose normal, oropharynx normal Neck: trachea midline, no thyromegaly Respiratory: normal respiratory effort (With nasal cannula in place) and able to speak in complete sentences; no labored breathing and not tachypneic Auscultation: +mild wheezing in lower lung krishna Cardiovascular: RRR, no murmur, no edema Chest (Breasts): Chest: normal inspection of chest Gastrointestinal (Abdomen): normal bowel sounds, soft, nontender, no hepatosplenomegaly Inspection/Auscultation: + abdomen abnormal to inspection (Surgical scar in the left inguinal region and midline of abdomen) Musculoskeletal: Extremities: extremities normal to inspection; no cyanosis and no clubbing Skin: no rashes, warm and dry Neurologic: moves all extremities and awake; no focal motor deficits Psychiatric: A+Ox3, euthymic affect Lymphatic: no lymphedema Results & Data Results & Data ([facility]) Vital Signs (Past 12 Hours) Vital Signs Temp Pulse Pulse Resp BP Pulse Ox 12/02/19 19:25 37.2 C 94 H 18 132/66 91 12/02/19 19:08 89 16 96 12/02/19 15:49 36.4 C L 89 18 120/68 90 12/02/19 15:07 81 18 95 12/02/19 14:40 80 12/02/19 11:53 36.5 C 81 18 150/65 H 97 PG Care Time/CCT Total # of Minutes Spent Total Time Spent with Patient: Total time spent is greater than 50% in coordination of care (as documented) at patient's floor/unit and/or counseling patient: Coding Level of Care Code 80279 Subseq Hosp Care Lvl 3 Diagnoses Pneumonia J18.9 Acute respiratory failure with hypoxia J96.01 Sepsis A41.9 COPD, mild J44.9 Barretts esophagus K22.70 Gastroesophageal reflux disease K21.9 Hyperlipidemia E78.5 HTN (hypertension) I10 Chronic constipation K59.09 Abdominal pain R10.9 Anxiety F41.9 Gout M10.9 DVT prophylaxis Z29.9 Time Spent (min) 35
[2019-12-03] MEDS: ALBUT/IPRATROP 3MG/0.5MG NEB 3 ML VIAL NEB SCH ×2 (07:25→11:05)
[2019-12-03] MEDS: PANTOprazole 40 MG TAB PO SCH (08:18)
[2019-12-03] MEDS: ATENOLOL 50 MG TABLET PO SCH (08:18)
[2019-12-03] MEDS: lisinopriL 20 MG TAB PO SCH (08:18)
[2019-12-03] MEDS: MAGNESIUM OXIDE 400 MG TAB PO SCH (08:19)
[2019-12-03] MEDS: AMLODIPINE BESYLATE 5 MG TAB PO SCH (08:19)
[2019-12-03] MEDS: METHYLCELLULOSE POWDER 454 GM JAR PO SCH (08:19)
[2019-12-03] MEDS: ASPIRIN 81 MG ECTAB PO SCH (08:19)
[2019-12-03] MEDS: allopurinoL 100 MG TAB PO SCH (08:19)
[2019-12-03] MEDS: AZITHROMYCIN 250 MG TAB PO SCH (08:19)
[2019-12-03] MEDS: POLYETHYLENE (MIRALAX) 17 GM PACK PO SCH (08:20)
[2019-12-03] MEDS ORDERED: cefUROXime axetil 500 MG TAB PO STA (13:07)
--- NOTE | 2019-12-09 14:32 | Discharge Summary ---
Date of Service December 03, 2019 Admission HPI Per Admitting Provider This patient is an 79-year-old male with a history of HTN, gout, anxiety with insomnia, mild COPD, GERD, Rahman, B12 deficiency, pulmonary nodules, and esophageal cancer, who presents with less than 24 hours of sore throat, productive cough, chills with a temperature of 99 at home, and worsening shortness of breath this morning. He became so short of breath this morning that he called an ambulance to bring him to the hospital. He denies any known sick contacts including those with CoVid-19. He comes from home and lives with his . He had some nausea with one small episode of vomiting this morning, but denies any current nausea. He has not had any diarrhea. He does suffer from chronic abdominal pain secondary to adhesive disease from multiple abdominal surgeries. In the ER, he was found to be working hard to breathe with a pulse ox of 92% that is recorded, however he was placed on 3 L nasal cannula and was much more comfortable. He was found to have bilateral basilar pneumonia on chest x-ray, leukocytosis, with tachycardia and tachypnea. His CoVid-19 test was negative in the ER, and a flu swab was negative. Blood cultures were drawn and he was given 1 dose of IV cefepime and IV levofloxacin, as well as IV acetaminophen and 2 puffs of an albuterol MDI-he was feeling much improved when I saw him. He will be admitted as an inpatient for pneumonia and sepsis with acute respiratory failure with hypoxia. Principal Diagnosis Community acquired Pneumonia Discharge Exam Constitutional: WD/WN, vitals as above Eyes: + anicteric sclerae ENMT: external ear and nose normal, oropharynx normal Neck: trachea midline, no thyromegaly Respiratory: normal respiratory effort on room air, no labored breathing and not tachypneic Auscultation: no wheezing. Cardiovascular: RRR, no murmur, no edema Chest (Breasts): Chest: normal inspection of chest Gastrointestinal (Abdomen): normal bowel sounds, soft, nontender, no hepatosplenomegaly Inspection/Auscultation: + abdomen abnormal to inspection (Surgical scar in the left inguinal region and midline of abdomen) Musculoskeletal: Extremities: extremities normal to inspection; no cyanosis and no clubbing Skin: no rashes, warm and dry Neurologic: moves all extremities and awake; no focal motor deficits Psychiatric: A+Ox3, euthymic affect Lymphatic: no lymphedema Discharge Data Allergies Allergy/AdvReac Type Severity Reaction Status Date / Time valsartan [From Diovan] Allergy Severe Verified 12/01/19 08:48 Penicillins Allergy Unknown Verified 12/01/19 08:48 codeine AdvReac Intermediate SICK IN Verified 12/01/19 08:48 STOMACH morphine AdvReac Intermediate nausea Verified 12/01/19 08:48 amoxicillin AdvReac Unknown BURNING IN Unverified 12/01/19 08:48 STOMACH clavulanic acid AdvReac Unknown BURNING IN Unverified 12/01/19 08:48 STOMACH Consultations 12/01/19 10:17 ED Decision to Admit Stat 12/01/19 14:57 Consult Case Management - Discharge Planning Routine Hospital Course (1) Pneumonia: This patient is an 79-year-old male here with pneumonia, sepsis, and acute respiratory failure with hypoxia. With chills at home but no documented fever yet, leukocytosis with lymphopenia, markers of inflammation are not significantly elevated for his age, procalcitonin is negative, lactate mildly elevated at 2.8 which may be from tachypnea, chest x-ray with bibasilar pneumonia and clinical exam consistent with such. He had preceding sore throat, runny nose, and [id number] is negative. Flu swab is negative. -Admit to medical floor with telemetry Patient was admitted with above diagnosis. He improved flutter valve and antibiotics. Initially on ceftriaxone and azithromycin. Switched to oral abx. (2) Acute respiratory failure with hypoxia: Secondary to pneumonia -Continue supplemental O2 and titrate off as able to with keeping pulse ox greater than 92% -Pulmonary toilet and duo nebs -Treating pneumonia as above (3) Sepsis: With leukocytosis, tachycardia, tachypnea, mildly elevated lactate, and with pneumonia as source Not severe sepsis -Treating with antibiotics as above (4) COPD, mild: With a remote history of smoking, quit 20 years ago Not on any inhalers at home Unclear if his had PFTs -Duo nebs here while sick with pneumonia and hypoxia (5) Barretts esophagus: Continue Prilosec twice daily Get surveillance EGDs once a year (6) Gastroesophageal reflux disease: Continue PPI twice daily (7) Hyperlipidemia: Continue simvastatin (8) HTN (hypertension): Stable -Continue home lisinopril, amlodipine, atenolol with hold parameters (9) Chronic constipation: Secondary to known adhesive disease -Continue home daily MiraLAX and home Citrucel once daily (10) Abdominal pain: Chronic, secondary to adhesive disease, no acute issues -Continue on bowel regimen to prevent constipation (11) Anxiety: Has difficulty falling asleep at home sometimes and is requesting medicine for sleep while in the hospital -We will give lorazepam 0.5 mg p.o. nightly as needed (12) Gout: No flares in a long time -Continue daily allopurinol for prophylaxis (13) DVT prophylaxis: SQ Lovenox and SCDs Total Time Total Time Spent Total Time Spent (In Minutes): 32 Total Time Includes: Examination of the Patient, Discharge Planning and Medication Reconciliation Discharge Plan Discharge Items Patient Disposition: Home - Self-Care Reason For Visit: PNEUMONIA Discharge Diagnosis: Pneumonia Activity: Resume your previous activity Non-emergency contact: Primary Care Provider Call non-emergency contact if: you have any medication questions Follow-up/Referrals: Luis Ugarte MD [Surgeon] - 12/09/19 2:20 pm (Please, follow up at [facility] General Surgery Office with Dr. Ugarte on SaturdayDecember 08 at 2:20 pm. *The office is located at [address] [place] [address] in [place]. If you have any questions or need to change the appointment, call the office at [phone]. *THIS APPOINTMENT IS FOR EVALUATION OF AN INGUINAL HERNIA*) Cyril John MD [Primary Care Provider] - 12/08/19 10:00 am (Please, follow up at [facility] with Dr. John on SaturdayDecember 07 at 10:00 am. *If you need to change this appointment, call the office at [phone].) Diet: Heart Healthy Addtl Attending Provider Instructions: You have been hospitalized for an acute medical problem. During your stay at [facility], we have made an effort to correct the problem that brought you to the hospital while keeping you as comfortable as possible. Medications were used to bring your condition under control and your discharge instructions will include directions for any medications you should take after leaving the hospital. Please make sure you see your Primary Care Provider as part of your follow up plan. Pending Studies at Discharge: No Stand-Alone Forms: [facility], Smoking Cessation Medications and DC Order Prescriptions: New azithromycin 250 mg tablet 250 mg PO DAILY Qty: 2 RF: 0 cefuroxime axetil 500 mg tablet 500 mg PO BID Qty: 6 RF: 0 Continued atenolol 100 mg tablet 100 mg PO BID Qty: 180 RF: 1 amlodipine 5 mg tablet 5 mg PO DAILY Qty: 90 RF: 1 aspirin 81 mg Tablet,Delayed Release (Dr/Ec) 81 mg PO DAILY RF: 0 magnesium oxide 400 mg magnesium Tablet 400 mg PO BID RF: 0 lisinopril 20 mg tablet 20 mg PO DAILY RF: 0 allopurinol 100 mg tablet 200 mg PO DAILY RF: 0 simvastatin 20 mg tablet 20 mg PO DAILY RF: 0 omeprazole 20 mg capsule,delayed release(DR/EC) 20 mg PO BID RF: 0 No Action prednisone 50 mg tablet 50 mg PO DAILY Qty: 5 RF: 0 Discharge Orders: Discharge Order (Routine); Ordered 12/03/19 Ordered By: Brandon Hobbs Admission Data Admit Date/Time: 12/01/19 11:38 Attending Provider: Brandon Hobbs Admit Provider: Cyndi Jim Primary Care Provider: Cyril John Other Providers: Cyndi Jim Other Interventions: Discharge Summary Assessment (RN) Last Done: 12/03/19 12:22 DC Date/Time DO NOT enter until pt leaves facility: 12/03/19 14:41 Coding Level of Care Code D/C Day Management >30 mins Diagnoses Pneumonia J18.9 Laterality: unspecified laterality Lung location: unspecified part of lung Pneumonia type: due to unspecified organism Acute respiratory failure with hypoxia J96.01 Sepsis A41.9 Sepsis acute organ dysfunction status: unspecified Sepsis type: sepsis due to unspecified organism COPD, mild J44.9 Barretts esophagus K22.70 Gastroesophageal reflux disease K21.9 Hyperlipidemia E78.5 HTN (hypertension) I10 Chronic constipation K59.09 Abdominal pain R10.9 Anxiety F41.9 Gout M10.9 DVT prophylaxis Z29.9 Time Spent (min) 32
== END 2019-12-03 14:41 | disposition home or self-care (01) | DRG 871 ==
LOC: ED 08:26 → SUATTDRO 11:38 → 2W 11:38